=== PATIENT | male | born 1955 | race Caucasian/White ===

== ENCOUNTER 2018-09-24 08:47 | Inpatient (IN) | payer OTHER, MEDICAID, SELFPAY ==
[2018-09-24] VITALS (13 sets, daily range): BP systolic 128–165; BP diastolic 84–111; PULSE 69–88; RESP 11–94; TEMP 36.3–36.6; O2SAT 13–100; BMI 27.6
--- NOTE | 2018-09-24 | DI.ECHO.S_ITS ---
[facility]---------+ [facility] +---------+ : : [address] : [address] : : : : [id number] : : : : Phone: [phone]+ Echocardiogram Report + + :Name: ANUPAM SIMS Study Date: 09/26/2018 Height: 74 in : :[facility] Weight: 215 lb : : Gender: Male BSA: 2.2 m2 : :: 1955 Age: 62 yrs BP: 145/99 mmHg: :Reason For Study: STROKE : : Performed By: Naty Medrano : :Referring: NATALIA KAHN : + + Interpretation Summary 1) Normal left ventricular thickness and size with borderline reduced systolic function (EF about 50%). 2) Normal right ventricular size and function. 3) No significant valvular abnormalities. 4) Bubble study doesn't reveal a inter-atrial shunt but quailty of images is poor. 5) No prior Echo available for comparison. Procedure: A two-dimensional transthoracic echocardiogram with color flow and Doppler was performed. The study quality was technically adequate. There is no prior echocardiogram noted for this patient. A saline contrast injection was performed to assess for cardiac shunting. The heart rate ranged between 60-80 bpm during the study. Left Ventricle: The left ventricle is normal in size. There is normal left ventricular wall thickness. Left ventricular ejection fraction is estimated to be 50 +/- 5%. Right Ventricle: The right ventricle is normal in size and function. Atria: Both atria are normal in size. There is no Doppler evidence for an interatrial shunt. Bubble study doesn't reveal a inter-atrial shunt but quailty of images is poor. Mitral Valve: The mitral valve leaflets appear mildly thickened, but open well. There is trace mitral regurgitation. Aortic Valve: The aortic valve is grossly normal. The aortic valve opens well. No aortic regurgitation is present. Tricuspid Valve: The tricuspid valve is normal in structure and function. There is a trace or physiologic amount of tricuspid regurgitation. Pulmonic Valve: The pulmonic valve is not well visualized. Great Vessels: The aortic root is normal size. The ascending aorta is at the upper limits of normal in size. The aortic arch is normal in size. The pulmonary is not well visualized. The IVC was not well visualized secondary to technical limitations making central venous pressures difficult to estimate. Pericardium/ Pleura There is no pericardial effusion. There is no pleural effusion. MMode/2D Measurements & Calculations LVIDd: 5.0 cm LVOT diam: 2.4 cm LVIDs: 4.5 cm Ao root diam: 3.8 cm FS: 9.7 % asc Aorta Diam: 3.6 cm EPSS: 1.2 cm Ao Arch Diam (distal): 2.8 cm IVSd: 0.84 cm LVPWd: 0.94 cm LV pierre. diameter/BSA (cm/m^2): 2.2 LV sys. diameter/BSA (cm/m^2): 2.0 LA A2 area: 15.0 cm2 RA long axis: 5.3 cm LA A4 area: 15.8 cm2 RA area: 15.3 cm2 LA length (vol): 4.6 cm RA vol: 37.5 ml LA vol: 43.6 ml RA : 16.7 ml/m2 LA vol index: 19.5 ml/m2 RVD1 (basal): 3.3 cm TAPSE: 2.3 cm Doppler Measurements & Calculations Ao V2 max: 103.4 cm/sec LVOT Max Lawrence: 64.2 cm/sec Ao V2 mean: 77.0 cm/sec LV V1 max P.6 mmHg Ao max P.3 mmHg LV V1 VTI: 13.4 cm Ao mean P.6 mmHg ANDRE(I,D): 3.7 cm2 Ao V2 VTI: 17.1 cm ANDRE(V,D): 2.9 cm2 sev ratio: 0.79 ANDRE indexed to BSA (cm^2/m^2): 1.7 MV E max lawrence: 37.3 cm/sec TR max lawrence: 227.5 cm/sec MV A max lawrence: 66.2 cm/sec TR max P.7 mmHg MV E/A: 0.56 MV dec time: 0.58 sec SV(LVOT): 63.4 ml Reading Physician:12:49 PM
--- NOTE | 2018-09-24 | DI.MRI.S_ITS ---
PROCEDURE: MR STROKE Pre- and post-contrast brain MRI, non-contrast brain MR angiogram, pre- and postcontrast neck MR angiogram INDICATIONS: Leftsided facial droop and weakness TECHNIQUE: Brain: Noncontrast axial T1 spin echo, axial T2 fast spin echo, sagittal and axial FLAIR, coronal T2 fast spin echo, axial gradient echo, axial diffusion and ADC through the brain. After the administration of contrast, axial 3D VIBE of the cranial vasculature and brain. Brain MRA: Non-contrast 3-D time of flight MR angiogram, with multiple zjurkug-wenxabtll-nlgbsyfidh (MIP) reformats performed. Neck MRA: Axial and sagittal TruFISP through the neck. Coronal dynamic MR angiogram during administration of contrast in the arterial and venous phases, with 3-dimenstional uirqgwx-vdlqdeaqf-royqzmahvx (MIP) reformats constructed from subtraction images. COMPARISON: [facility], CT, CT ANGIO HEAD AND NECK, 09/24/2018, 8:52. [facility], CT, CT HEAD/BRAIN WO CON, 09/24/2018, 8:48. FINDINGS: Image quality: Excellent. BRAIN: CSF spaces: Ventricles are normal in size and shape. Basal cisterns are patent. No extra-axial fluid collections. Brain: Restricted diffusion in the right luis miguel measuring 1.1 cm is consistent with an acute right pontine infarct. There is no evidence of acute hemorrhage. There is mild cytotoxic edema. There is no significant mass effect. Brain parenchyma is otherwise unremarkable. No abnormal enhancement with gadolinium. No hemosiderin deposition. No significant T2 abnormalities in the other areas. A Normal intravascular flow voids are present. No abnormal intracranial enhancement. Skull and face: Calvarial marrow signal is normal. Orbits appear normal. Sinuses: Sinuses and mastoids are clear. BRAIN MR ANGIOGRAM: No aneurysms or occlusions or stenoses. Left vertebral artery is dominant. Right vertebral artery is diminutive. NECK MR ANGIOGRAM: Carotids: Great vessels demonstrate a conventional anatomy as they arise from the aortic arch. The origins of the common carotid arteries appear patent. The calibers and courses of both common carotid arteries are normal. The bifurcation regions appear normal bilaterally. The internal carotid arteries demonstrate normal course and caliber. Posterior circulation: The origins of the vertebral arteries appear patent. More superior portions of both vertebral arteries demonstrate normal course and caliber, and join to form a normal appearing basilar artery. Left vertebral artery is dominant. Right vertebral artery is diminutive. Miscellaneous: Subclavian arteries appear patent. Pre-contrast images through the neck show no soft tissue abnormalities. IMPRESSION: BRAIN MRI: Acute right pontine infarct. BRAIN MR ANGIOGRAM: Unremarkable MRA head NECK MR ANGIOGRAM: Unremarkable MRA neck with and without contrast. Incidental note made of diffusely diminutive right vertebral artery. Dictated by: Charles Schmid M.D. on 09/24/2018 at 18:04 Approved by: Charles Schmid M.D. on 09/24/2018 at 18:16
--- NOTE | 2018-09-24 08:55 | DI.CT.S_ITS ---
PROCEDURE: CT HEAD/BRAIN WO CON INDICATIONS: cva left facial droop TECHNIQUE: Noncontrast 4.5 mm thick angled axial sections acquired from the foramen magnum to the vertex, with coronal and sagittal reformats. For radiation dose reduction, the following was used: automated exposure control, adjustment of mA and/or kV according to patient size. COMPARISON: None. FINDINGS: Image quality: Excellent. CSF spaces: Basal cisterns are patent. No extra-axial fluid collections. Ventricles are normal in size and shape. Brain: No midline shift. No intracranial masses or hemorrhage. Anthony-white matter interface is normal. Skull and face: There is a displaced nasal bone fracture, the acuity of which is unknown. Calvarium and visualized facial bones are otherwise intact, without suspicious lesions. Sinuses: Visualized sinuses and mastoids are clear. IMPRESSION: 1. No acute intracranial findings. If there is high clinical suspicion for acute or subacute CVA, noncontrast MRI of the brain would be helpful to further characterize findings. 2. Displaced nasal bone fracture which may be chronic or subacute in nature. Please correlate clinically. No overlying soft tissue swelling. Dictated by: Ivy Bishop M.D. on 09/24/2018 at 9:07 Approved by: Ivy Bishop M.D. on 09/24/2018 at 9:10
--- NOTE | 2018-09-24 09:05 | ED_ITS ---
HPI - Neuro Symptoms/Deficit General Chief Complaint: Neuro Symptoms/Deficit Stated Complaint: mild stroke Time Seen by Provider: 09/24/18 08:55 Source: patient and family Mode of arrival: wheelchair Limitations: no limitations History of Present Illness HPI Narrative: patient is a 62-year-old male who presents with left-sided deficits and vomiting. states she thought he had the flu yesterday she thinks maybe he had some left-sided deficits yesterday but was not sure if they were real. This morning he threw up another time and is she noticed his left face was definitely weaker and he was having difficulty walking. At that time she brought him to the emergency department definite sign Timing confirmed by: spouse Location: left face History of same: No Severity: mild Quality: weak Relieving factors: none Related Data Home Medications Medication Instructions Recorded Confirmed multivitamin [Multiple Vitamins] 1 tab PO DAILY #0 03/02/17 09/24/18 aspirin 81 mg PO PRN PRN 09/24/18 09/24/18 ibuprofen 200 mg PO QID PRN 09/24/18 09/24/18 Allergies Allergy/AdvReac Type Severity Reaction Status Date / Time No Known Drug Allergies Allergy Verified 09/24/18 09:19 Review of Systems Review of Systems ROS Unobtainable: All systems reviewed & are unremarkable except as noted in HPI and below Constitutional Denies chills, Denies fever(s), Denies lethargy and Denies weakness Eyes Denies change in vision, Denies eye discharge, Denies irritation and Denies loss of vision ENT Ears, Nose, Mouth, and Throat: Denies change in voice, Denies neck pain and Denies sore throat Cardiovascular Denies chest pain, Denies irregular heart rhythm, Denies lightheadedness, Denies palpitations, Denies dyspnea, Denies dyspnea on exertion and Denies orthopnea Respiratory Denies cough, Denies dyspnea, Denies dyspnea on exertion and Denies wheezing Gastrointestinal Gastrointestinal: Denies abdominal pain, Denies change in bowel habits, Denies diarrhea, Denies nausea and Reports vomiting Genitourinary Denies hematuria, Denies flank pain, Denies urinary incontinence and Denies urinary urgency Musculoskeletal Denies neck pain Integumentary/Breasts Denies pruritus, Denies erythema, Denies rash and Denies wounds Neurologic Denies loss of vision and Denies weakness Endocrine Denies palpitations Allergic/Immunologic Denies wheezing PFSH Medical History HTN (hypertension) (Acute) Hyperlipidemia (Acute) CHRISTINE (obstructive sleep apnea) (Acute) Surgical History H/O cataract removal with insertion of prosthetic lens (Acute) H/O right inguinal hernia repair (Acute) Family History Mother No problems noted. Father No problems noted. Brother Diabetes mellitus Social History Smoking Status: Never smoker Family History Mother No problems noted. Father No problems noted. Brother Diabetes mellitus Social History Smoking Status: Never smoker Exam Initial Vital Signs Initial Vital Signs: Vital Signs Pulse Rate 88 09/24/18 09:00 Respiratory Rate 17 09/24/18 09:00 Blood Pressure 162/111 H 09/24/18 09:00 Pulse Oximetry 99 09/24/18 09:00 GENERAL: alert male with left facial drooping answering questions appropriately HEENT: Head atraumatic,EOMI, pupils reactive, left facial droop CARDIOVASCULAR: Regular rate and rhythm without murmurs, rubs or gallops. RESPIRATORY: Breath sounds equal bilaterally, no wheezes rales or rhonchi. ABDOMEN: Soft, nontender. Normoactive bowel sounds all 4 quadrants. No guarding or rebound. EXTREMITIES: Normal range of motion, no clubbing or edema. Neurovascularly intact NEUROLOGICAL: Alert and oriented x4. Clear speech no AFib a JALEESA or dysarthria. Cranial nerves II through XII grossly intact. 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 He left facial droop SKIN: Warm, dry, no laceration, no petechiae, no rashes or lesions. Scores NIH Stroke Scale Level of Conciousness: Alert, keenly responsive Ask month/age: Answers both questions correctly. Open/close eyes, close hand: Performs both tasks correctly Best gaze horizontal: Normal Visual galo: No visual loss Facial palsy: Partial paralysis, total or near total paralysis of lower face Left arm drift: Drifts down, not to bed Right arm drift: No drift for full 10 sec Left leg drift: No drift for full 10 sec Right leg drift: No drift for full 10 sec Limb ataxia: Present in one limb Sensory on face/arms/legs: Normal, no sensory loss Best language: No aphasia, normal Dysarthria: Normal Extinction or inattention: No abnormality Total NIH Stroke scale score: 4 Course Orders Ordered: ED Orders 09/24/18 12:14 Education, smoking cessation ONGOING 09/24/18 12:16 Consult to Occupational Therapy Evaluate & Treat Consult to Physical Therapy Evaluate & Treat 09/24/18 12:18 Consult to Speech Therapy Evaluate & Treat 09/24/18 12:47 Consult to Speech Therapy Evaluate & Treat 09/24/18 14:07 Lipid Panel Routine Acetaminophen (Tylenol) 650 mg PO Q6HR PRN PRN Reason: As Needed for Fever/Mild Pain Atorvastatin Calcium (Lipitor) 40 mg PO BEDTIME NADIA Docusate Sodium (Colace) 100 mg PO BID PRN PRN Reason: Constipation Heparin Sodium (Porcine) (Heparin) 5,000 unit SUBCUT BID NADIA Sodium Chloride (Normal Saline 0.9%) 1,000 mls @ 100 mls/hr IV CONT NADIA Last Admin: 09/24/18 13:43 Dose: 100 mls/hr Magnesium Hydroxide (Milk Of Magnesia) 30 ml PO DAILY PRN PRN Reason: Constipation Ondansetron HCl (Zofran) 4 mg IV Q8HR PRN PRN Reason: Nausea And Vomiting Sennosides (Senna) 17.2 mg PO BEDTIME PRN PRN Reason: Constipation Discontinued Medications Aspirin (Aspirin Chew) 324 mg PO NOW ONE Stop: 09/24/18 09:47 Last Admin: 09/24/18 09:49 Dose: 324 mg Sodium Chloride (Normal Saline 0.9%) 1,000 mls @ 150 mls/hr IV CONT NADIA Last Infusion: 09/24/18 13:28 Dose: 100 mls/hr Infusion: 09/24/18 12:28 Dose: 150 mls/hr Admin: 09/24/18 09:27 Dose: 150 mls/hr Vital Signs - 8 hr 09/24/18 11:30 09/24/18 12:00 09/24/18 12:30 Temperature 97.8 F Pulse Rate 69 75 74 Respiratory Rate 12 11 L 18 Blood Pressure 165/96 H Blood Pressure [Left Arm] 138/84 138/99 H Pulse Oximetry 93 97 97 09/24/18 15:28 09/24/18 16:53 Temperature 97.5 F L Pulse Rate 78 Respiratory Rate 18 Blood Pressure 152/90 H Blood Pressure [Left Arm] Pulse Oximetry 99 96 MDM - Neuro Symptoms/Deficit Lab Data Attestation: I reviewed the patient's lab results. Result diagrams: 09/24/18 09:00 09/24/18 09:00 Lab Results 09/24/18 09/24/18 09/24/18 Range/Units 09:00 09:00 09:00 WBC 6.7 (4.5-11.0) X10^3/uL RBC 5.01 (4.5-5.9) X10^6/uL Hgb 16.0 (13.5-17.5) g/dL Hct 45.9 (41-53) % MCV 91.7 (80-100) fL MCH 31.9 (26-34) PG MCHC 34.8 (30-36) % RDW 12.7 (11.6-14.8) % Plt Count 234 (150-400) X10^3/uL Neut % (Auto) 67.3 (50-75) % Lymph % (Auto) 23.1 L (25-40) % [place] % (Auto) 8.6 (3-14) % Eos % (Auto) 0.3 L (2-4) % Baso % (Auto) 0.7 (0-2) % Neut # (Auto) 4500 (0803-5860) /uL Lymph # (Auto) 1500 (9457-5921) /uL [place] # (Auto) 600 (0-900) /uL Eos # (Auto) 0 (0-450) /uL Baso # (Auto) 0 (0-100) /uL PT 12.3 (10.1-12.7) SECONDS INR 1.1 (0.9-1.3) APTT 28 (26.4-36.2) SECONDS Sodium 136 L (137-145) mmol/L Potassium 3.4 (3.4-5.1) mmol/L Chloride 102 (98-107) mmol/L Carbon Dioxide 24 (22-32) mmol/L BUN 14 (9-20) mg/dL Creatinine 0.70 (0.66-1.25) mg/dL Estimated GFR > 60.0 (>60) mL/min BUN/Creatinine Ratio 20.0 (6-22) Glucose 115 H (80-110) mg/dL Hemoglobin A1c (4.0-6.0) % Calcium 9.6 (8.4-10.2) mg/dL Total Bilirubin 0.9 (0.2-1.3) mg/dL AST 35 (17-59) IU/L ALT 53 (21-72) IU/L Alkaline Phosphatase 35 L (38-126) U/L Total Creatine Kinase 65 (55-170) U/L CK-MB (CK-2) TNP CK-MB (CK-2) Rel Index TNP Troponin I < 0.012 (0.01-0.034) ng/mL Total Protein 7.4 (6.3-8.2) g/dL Albumin 4.6 (3.5-5.0) g/dL Globulin 2.8 (1.7-4.1) g/dL Albumin/Globulin Ratio 1.6 (1.0-2.8) Triglycerides (35-150) mg/dL Cholesterol (140-199) mg/dL LDL Cholesterol, Calc (<100) mg/dL HDL Cholesterol (40-60) mg/dL Urine Opiates Screen (Negative) Ur Oxycodone Screen (Negative) Urine Methadone Screen (Negative) Ur Barbiturates Screen (Negative) U Tricyclic Antidepress (Negative) Ur Phencyclidine Scrn (Negative) Ur Amphetamines Screen (Negative) U Methamphetamines Scrn (Negative) Ur MDMA Scrn (Ecstasy) (Negative) U Benzodiazepines Scrn (Negative) Urine Cocaine Screen (Negative) U Marijuana (THC) Screen (Negative) 09/24/18 09/24/18 09/24/18 Range/Units 09:00 14:07 Unknown WBC (4.5-11.0) X10^3/uL RBC (4.5-5.9) X10^6/uL Hgb (13.5-17.5) g/dL Hct (41-53) % MCV (80-100) fL MCH (26-34) PG MCHC (30-36) % RDW (11.6-14.8) % Plt Count (150-400) X10^3/uL Neut % (Auto) (50-75) % Lymph % (Auto) (25-40) % [place] % (Auto) (3-14) % Eos % (Auto) (2-4) % Baso % (Auto) (0-2) % Neut # (Auto) (0193-8529) /uL Lymph # (Auto) (3722-9078) /uL [place] # (Auto) (0-900) /uL Eos # (Auto) (0-450) /uL Baso # (Auto) (0-100) /uL PT (10.1-12.7) SECONDS INR (0.9-1.3) APTT (26.4-36.2) SECONDS Sodium (137-145) mmol/L Potassium (3.4-5.1) mmol/L Chloride (98-107) mmol/L Carbon Dioxide (22-32) mmol/L BUN (9-20) mg/dL Creatinine (0.66-1.25) mg/dL Estimated GFR (>60) mL/min BUN/Creatinine Ratio (6-22) Glucose (80-110) mg/dL Hemoglobin A1c 5.2 (4.0-6.0) % Calcium (8.4-10.2) mg/dL Total Bilirubin (0.2-1.3) mg/dL AST (17-59) IU/L ALT (21-72) IU/L Alkaline Phosphatase (38-126) U/L Total Creatine Kinase (55-170) U/L CK-MB (CK-2) CK-MB (CK-2) Rel Index Troponin I (0.01-0.034) ng/mL Total Protein (6.3-8.2) g/dL Albumin (3.5-5.0) g/dL Globulin (1.7-4.1) g/dL Albumin/Globulin Ratio (1.0-2.8) Triglycerides 120 (35-150) mg/dL Cholesterol 192 (140-199) mg/dL LDL Cholesterol, Calc 127 H (<100) mg/dL HDL Cholesterol 41 (40-60) mg/dL Urine Opiates Screen Negative (Negative) Ur Oxycodone Screen Negative (Negative) Urine Methadone Screen Negative (Negative) Ur Barbiturates Screen Negative (Negative) U Tricyclic Antidepress Negative (Negative) Ur Phencyclidine Scrn Negative (Negative) Ur Amphetamines Screen Negative (Negative) U Methamphetamines Scrn Negative (Negative) Ur MDMA Scrn (Ecstasy) Negative (Negative) U Benzodiazepines Scrn Negative (Negative) Urine Cocaine Screen Negative (Negative) U Marijuana (THC) Screen Negative (Negative) Point of Care Testing Glucose POC 94 Urine Dip Bedside Urine Glucose Negative Bedside Urine Bilirubin - Negative Bedside Urine Ketone - Negative Urine Specific [place] 1.010 Bedside Urine Occult Blood - Negative Bedside Urine pH 8.0 Bedside Urine Protein - Negative Bedside Urine Urobilinogen - Negative Bedside Urine Nitrite - Negative Bedside Urine Leukocytes - Negative Esterase Imaging Data CT scan - head: Radiologist's impression: PROCEDURE: CT HEAD/BRAIN WO CON INDICATIONS: cva left facial droop TECHNIQUE: Noncontrast 4.5 mm thick angled axial sections acquired from the foramen magnum to the vertex, with coronal and sagittal reformats. For radiation dose reduction, the following was used: automated exposure control, adjustment of mA and/or kV according to patient size. COMPARISON: None. FINDINGS: Image quality: Excellent. CSF spaces: Basal cisterns are patent. No extra-axial fluid collections. Ventricles are normal in size and shape. Brain: No midline shift. No intracranial masses or hemorrhage. Anthony-white matter interface is normal. Skull and face: There is a displaced nasal bone fracture, the acuity of which is unknown. Calvarium and visualized facial bones are otherwise intact, without suspicious lesions. Sinuses: Visualized sinuses and mastoids are clear. IMPRESSION: 1. No acute intracranial findings. If there is high clinical suspicion for acute or subacute CVA, noncontrast MRI of the brain would be helpful to further characterize findings. 2. Displaced nasal bone fracture which may be chronic or subacute in nature. Please correlate clinically. No overlying soft tissue swelling. Dictated by: Ivy Bishop M.D. on 09/24/2018 at 9:07 CTA head and neck: Radiologist's impression: PROCEDURE: CT HEAD/BRAIN WO CON INDICATIONS: cva left facial droop TECHNIQUE: Noncontrast 4.5 mm thick angled axial sections acquired from the foramen magnum to the vertex, with coronal and sagittal reformats. For radiation dose reduction, the following was used: automated exposure control, adjustment of mA and/or kV according to patient size. COMPARISON: None. FINDINGS: Image quality: Excellent. CSF spaces: Basal cisterns are patent. No extra-axial fluid collections. Ventricles are normal in size and shape. Brain: No midline shift. No intracranial masses or hemorrhage. Anthony-white matter interface is normal. Skull and face: There is a displaced nasal bone fracture, the acuity of which is unknown. Calvarium and visualized facial bones are otherwise intact, without suspicious lesions. Sinuses: Visualized sinuses and mastoids are clear. IMPRESSION: 1. No acute intracranial findings. If there is high clinical suspicion for acute or subacute CVA, noncontrast MRI of the brain would be helpful to further characterize findings. 2. Displaced nasal bone fracture which may be chronic or subacute in nature. Please correlate clinically. No overlying soft tissue swelling. Dictated by: Ivy Bishop M.D. on 09/24/2018 at 9:07 ECG Data Attestation: I personally reviewed and interpreted this ECG as follows: Prior ECG tracings: not available for review Interpretation: normal sinus rhythm at rate [address] changes no T-wave inversions no priors to compare MDM Narrative Medical decision making narrative: the patient not candidate for tPA symptoms likely started last night but unclear of start time. No large vessel occlusion noted on CT angio. patient continuing to have left sided deficits. Moving placed into observation. Dr. daly happily accepts. Discharge Plan Departure Patient Disposition: Admitted as Observation Clinical Impression: Cerebrovascular accident Qualifiers: CVA mechanism: unspecified Qualified Code(s): I63.9 - Cerebral infarction, unspecified Discharge Date/Time: 09/24/18 12:29 Interventions: ED Discharge Assessment Last Done: 09/24/18 11:52 Admit Date/Time: 09/24/18 11:08 Admit Provider: Yenifer Daly
[2018-09-24 09:12] LABS: Add Manual Diff / Slide Review NO; Basophils Absolute Auto 0 /uL (0-100); Basophils Percent Auto 0.7 % (0-2); Eosinophils Absolute Auto 0 /uL (0-450); Eosinophils Percent Auto 0.3 % (2-4); Hematocrit 45.9 % (41-53); Lymphocytes Absolute Auto 1500 /uL (1100-4500); Lymphocytes Percent Auto 23.1 % (25-40); Mean Corpuscular HGB Conc 34.8 % (30-36); Mean Corpuscular Hemoglobin 31.9 PG (26-34); Mean Corpuscular Volume 91.7 fL (80-100); Monocytes Absolute Auto 600 /uL (0-900); Monocytes Percent Auto 8.6 % (3-14); Neutrophils Absolute Auto 4500 /uL (1500-7000); Neutrophils Percent Auto 67.3 % (50-75); Platelet Count 234 X10^3/uL (150-400); Red Blood Cell Count 5.01 X10^6/uL (4.5-5.9); Red Cell Distribution Width 12.7 % (11.6-14.8); White Blood Cell Count 6.7 X10^3/uL (4.5-11.0)
[2018-09-24 09:15] LABS: INR 1.1 (0.9-1.3); Prothrombin Time 12.3 SECONDS (10.1-12.7)
--- NOTE | 2018-09-24 09:17 | DI.CT.S_ITS ---
PROCEDURE: CT ANGIO HEAD AND NECK INDICATIONS: left falcial droop TECHNIQUE: Pre-contrast 4.5 mm thick sections acquired from the foramen magnum to the vertex. After the administration of intravenous contrast, 1 mm thick sections acquired from the aortic arch through the [place] of [place]. Post-contrast 4.5 mm thick sections then re-acquired from the foramen magnum to the vertex. 3-dimensional uelykxe-slzgqqmda-pwudpszjnr (MIP) and/or volume rendering reformats were acquired of the central intracranial vasculature and neck separately. COMPARISON: [facility], CT, CT HEAD/BRAIN WO CON, 09/24/2018, 8:48. FINDINGS: Image quality: Excellent. BRAIN: CSF spaces: Ventricles are normal in size and shape. Basal cisterns are patent. No extra-axial fluid collections. Brain: No midline shift. No intracranial bleeds or masses. Anthony-white matter interface appears intact. Skull and face: Calvarium appears intact, without suspicious lesions. Chronic nasal bone fracture stable. Orbits appear normal. Sinuses: Sinuses and mastoids are clear. HEAD CT ANGIOGRAPHY: Anterior circulation: Intracranial internal carotid arteries are normal in flow. Atherosclerotic calcification noted in the cavernous segment of the left internal carotid artery which causes mild short segment stenosis. The flow within the paired anterior cerebral arteries is normal and symmetric. The flow within the middle cerebral arteries is normal and symmetric. The anterior communicating artery is seen. No aneurysms are seen. Posterior circulation: Visualized portions of the vertebral arteries demonstrate normal caliber, and join to form a normal appearing basilar artery. Flow within the posterior cerebral arteries is normal and symmetric. No aneurysms are seen. Dural sinuses demonstrate normal postcontrast enhancement. NECK CT ANGIOGRAPHY: Carotid system: The great vessels demonstrate a conventional anatomy as they arise from the aortic arch. The origins of the common carotid arteries appear patent. The common carotid arteries demonstrate normal caliber and courses. The bifurcation regions are both widely patent. The internal carotid arteries demonstrate normal calibers and courses. Posterior circulation: The origins of the vertebral arteries both appear widely patent. The more superior extracranial portions of both vertebral arteries also demonstrate normal courses and calibers. They join to form a normal appearing basilar artery. Soft tissues: Visualized neck soft tissues demonstrate no suspicious abnormalities. 8mm lipoma noted in the right parotid gland. Bones: No suspicious bony lesions. Spine degenerative disc disease and facet arthropathy.Visualized cervical spine appears normally aligned. IMPRESSION: 1. No acute intracranial disease process. If there is continued clinical concern for acute/subacute cerebrovascular accident, then MRI of the brain should be considered for further evaluation. 2. No large vessel occlusion, hemodynamically significant stenosis, dissection or aneurysm. Any quantitative measurements of stenosis were performed using NASCET criteria. Dictated by: Katie Davis MD, PhD on 09/24/2018 at 9:28 Approved by: Katie Davis MD, PhD on 09/24/2018 at 9:37
[2018-09-24 09:18] LABS: PTT Partial Thromboplastin Tim 28 SECONDS (26.4-36.2)
[2018-09-24 09:19] LABS: Alanine Aminotransferase 53 IU/L (21-72); Albumin 4.6 g/dL (3.5-5.0); Albumin Globulin Ratio 1.6 (1.0-2.8); Alkaline Phosphatase 35 U/L (38-126); Aspartate Aminotransferase 35 IU/L (17-59); Bilirubin Total 0.9 mg/dL (0.2-1.3); Blood Urea Nitrogen 14 mg/dL (9-20); Calcium 9.6 mg/dL (8.4-10.2); Carbon Dioxide 24 mmol/L (22-32); Chloride 102 mmol/L (98-107); Creatine Kinase 65 U/L (55-170); Estimated Glomerular Filt Rate > 60.0 mL/min (>60); Globulin 2.8 g/dL (1.7-4.1); Glucose 115 mg/dL (80-110); HEMOLYSIS < 15 (0-50); Potassium 3.4 mmol/L (3.4-5.1); Sodium 136 mmol/L (137-145); Total Protein 7.4 g/dL (6.3-8.2)
[2018-09-24] MEDS: SODIUM CHLORIDE 0.9% 1,000 ML 150 ML IV (09:27)
[2018-09-24 09:31] LABS: Troponin I < 0.012 ng/mL (0.01-0.034)
[2018-09-24] MEDS: ASPIRIN 81 MG TAB 324 MG PO (09:49)
[2018-09-24 11:21] LABS: Urine Amphetamines Negative (Negative); Urine Barbiturates Negative (Negative); Urine Benzodiazepines Negative (Negative); Urine Cocaine Negative (Negative); Urine MDMA Negative (Negative); Urine Methadone Negative (Negative); Urine Methamphetamines Negative (Negative); Urine Morphine/Opi cutoff 2000 Negative (Negative); Urine Oxycodone Negative (Negative); Urine Phencyclidine Negative (Negative); Urine Tetrahydrocannabinol Negative (Negative); Urine Tricyclic Antidepressant Negative (Negative)
--- NOTE | 2018-09-24 12:24 | PC.NURSE ---
Day shift: Arrived on unit at approx 1215 from ED. Pt is able to stand and ambulate. Will be HFR for now. Karuna BROUSSARD is admitting the Pt as this is written.
--- NOTE | 2018-09-24 13:34 | PM.HP.1 ---
History of Present Illness Date Patient Seen: 09/24/18 Chief complaint: mild stroke Narrative: Brandon Ivey is a 62-year-old male with a past medical history significant for hypertension and probable obstructive sleep apnea not on CPAP who presented with left-sided weakness and facial droop. His significant other reports that she thought he had the flu yesterday as he experience nausea and vomiting after a meal yesterday. This morning he threw up another time and is she noticed his left face was definitely weaker and he was having difficulty walking. 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 He exhibits expressive aphasia and reports that it is hard to get the words out that he wants to say. He also has had pain in his right eye that has resolved, as well as, blurriness which has not. He current denies headache, chest pain, shortness of breath, abdominal pain, nausea, vomiting, fever, chills, dysuria, diarrhea or constipation. He has no other complaints at this time. Patient History Medical History HTN (hypertension) (Acute) Hyperlipidemia (Acute) CHRISTINE (obstructive sleep apnea) (Acute) Surgical History H/O cataract removal with insertion of prosthetic lens (Acute) H/O right inguinal hernia repair (Acute) Social History Smoking Status: Never smoker Family & Social History Family History Mother No problems noted. Father No problems noted. Brother Diabetes mellitus Social History: Prior Living Arrangements House Safety & Behavioral: Feels Safe in Current Yes Environment Been Physically Hurt or No Threatened By a Person Suicidal Ideation Description None Suicide Plan Description No Plan Tobacco & Substance use: Smoking Status Never smoker alcohol intake frequency a few times a week Substance Use Type does not use Patient has significant other x 1.5 years. He has never been a smoker. He does not use recreational drugs. He drinks 1-2 drinks, either beer or mixed vodka tonic, on Monday and Saturdays only. Meds Home Medications Medication Instructions Recorded Confirmed Type multivitamin [Multiple Vitamins] 1 tab PO DAILY #0 03/02/17 09/24/18 History aspirin 81 mg PO PRN PRN 09/24/18 09/24/18 History ibuprofen 200 mg PO QID PRN 09/24/18 09/24/18 History Allergies Allergy/AdvReac Type Severity Reaction Status Date / Time No Known Drug Allergies Allergy Verified 09/24/18 09:19 Review of Systems Review of Systems A 10 system comprehensive review of systems was conducted with the patient and found to be negative except as above in the History of Present Illness. Exam Vital Signs (past 8 hours): - 09/24/18 09:00 09/24/18 09:13 09/24/18 09:15 Temperature 97.4 F L Pulse Rate 88 86 84 Respiratory Rate 17 17 17 Blood Pressure 162/111 H Blood Pressure [Left Arm] 162/111 H 152/98 H Pulse Oximetry 99 98 100 09/24/18 09:45 09/24/18 10:00 09/24/18 10:15 Temperature Pulse Rate 77 73 72 Respiratory Rate 11 L 11 L 14 Blood Pressure Blood Pressure [Left Arm] 154/94 H 153/92 H 151/94 H Pulse Oximetry 96 95 94 09/24/18 10:55 09/24/18 11:00 09/24/18 11:30 Temperature Pulse Rate 73 77 69 Respiratory Rate 18 94 H 12 Blood Pressure Blood Pressure [Left Arm] 128/87 147/98 H 138/84 Pulse Oximetry 98 13 L 93 09/24/18 12:00 09/24/18 12:30 Temperature 97.8 F Pulse Rate 75 74 Respiratory Rate 11 L 18 Blood Pressure 165/96 H Blood Pressure [Left Arm] 138/99 H Pulse Oximetry 97 97 Oxygen Delivery Method Room Air Oxygen Flow Rate 0 Narrative Exam Narrative: General: Older male sitting in bed and in no acute distress, appears older than stated age, well-developed, well-nourished, appropriately interactive. HEENT: Normocephalic, atraumatic. External ears without defect. Pupils equal, round, and reactive to light. Anicteric sclerae, moist conjunctivae, and no lid lag. Oropharynx free of erythema and cobble stoning with moist mucosa. Neck: Supple with full range of motion. No jugular venous distension. No bruits. No lymphadenopathy or thyromegaly. Cardiovascular: Regular rate and rhythm without murmurs, rubs, or gallops appreciated Pulmonary: Clear to auscultation bilaterally without crackles, wheezes, or rhonchi. Normal respiratory effort with no use of accessory muscles. Abdomen: Soft, bowel sounds present, nontender, nondistended. No hepatosplenomegaly or masses appreciated. Extremities: No clubbing, cyanosis, or edema. Skin: Normal temperature, turgor, and texture; no rash, ulcers, or subcutaneous nodules appreciated. Neurological: Left-sided facial droop, left investigations director weakness 2/5, left arm drift, expressive aphasia and slight slurring of speech. Right upper and lower extremity normal muscle strength 5/5. [id number]-[id number] intact bilaterally. Psychiatric: Normal mood and affect. Alert and oriented to person, place, and time. Objective Labs Result Diagrams: 09/24/18 09:00 09/24/18 09:00 Labs: Laboratory Results - last 24 hr 09/24/18 09/24/18 09/24/18 09:00 09:00 09:00 WBC 6.7 RBC 5.01 Hgb 16.0 Hct 45.9 MCV 91.7 MCH 31.9 MCHC 34.8 RDW 12.7 Plt Count 234 Neut % (Auto) 67.3 Lymph % (Auto) 23.1 L Sutter % (Auto) 8.6 Eos % (Auto) 0.3 L Baso % (Auto) 0.7 Neut # (Auto) 4500 Lymph # (Auto) 1500 Sutter # (Auto) 600 Eos # (Auto) 0 Baso # (Auto) 0 PT 12.3 INR 1.1 APTT 28 Sodium 136 L Potassium 3.4 Chloride 102 Carbon Dioxide 24 BUN 14 Creatinine 0.70 Estimated GFR > 60.0 BUN/Creatinine Ratio 20.0 Glucose 115 H Calcium 9.6 Total Bilirubin 0.9 AST 35 ALT 53 Alkaline Phosphatase 35 L Total Creatine Kinase 65 CK-MB (CK-2) TNP CK-MB (CK-2) Rel Index TNP Troponin I < 0.012 Total Protein 7.4 Albumin 4.6 Globulin 2.8 Albumin/Globulin Ratio 1.6 Urine Opiates Screen Ur Oxycodone Screen Urine Methadone Screen Ur Barbiturates Screen U Tricyclic Antidepress Ur Phencyclidine Scrn Ur Amphetamines Screen U Methamphetamines Scrn Ur MDMA Scrn (Ecstasy) U Benzodiazepines Scrn Urine Cocaine Screen U Marijuana (THC) Screen 09/24/18 Unknown WBC RBC Hgb Hct MCV MCH MCHC RDW Plt Count Neut % (Auto) Lymph % (Auto) Sutter % (Auto) Eos % (Auto) Baso % (Auto) Neut # (Auto) Lymph # (Auto) Sutter # (Auto) Eos # (Auto) Baso # (Auto) PT INR APTT Sodium Potassium Chloride Carbon Dioxide BUN Creatinine Estimated GFR BUN/Creatinine Ratio Glucose Calcium Total Bilirubin AST ALT Alkaline Phosphatase Total Creatine Kinase CK-MB (CK-2) CK-MB (CK-2) Rel Index Troponin I Total Protein Albumin Globulin Albumin/Globulin Ratio Urine Opiates Screen Negative Ur Oxycodone Screen Negative Urine Methadone Screen Negative Ur Barbiturates Screen Negative U Tricyclic Antidepress Negative Ur Phencyclidine Scrn Negative Ur Amphetamines Screen Negative U Methamphetamines Scrn Negative Ur MDMA Scrn (Ecstasy) Negative U Benzodiazepines Scrn Negative Urine Cocaine Screen Negative U Marijuana (THC) Screen Negative Assessment & Plan Assessment & Plan narrative: Barndon Ivey is a 62-year-old male with a past medical history significant for hypertension and probable obstructive sleep apnea not on CPAP who presented with left-sided weakness and facial droop. 1. Probable right-sided CVA, present on admission. Active. -Patient presented with left-sided weakness, facial droop, and expressive aphasia with slight slurring of speech. -CT brain without contrast and CTA did not demonstrate any acute intracranial abnormalities. -Ordered MR stroke, pending. -NIH score of 4. Continue NIH neuro checks every 4 hr. -Allow for permissive hypertension. -Risk stratify with fasting lipid panel and hemoglobin A1c. -Ordered PT/OT/ST evaluation and treatment pending. -Received aspirin 325 mg in the ED. Started patient on aspirin 81 mg daily and atorvastatin 40 mg daily at bedtime. Patient reports he takes aspirin 81 mg but not every day. -Continue to monitor closely on telemetry. Patient has been in normal sinus rhythm without ectopy thus far. 2. Hypertension, chronic, present on admission. Stable. -Continue to allow for permissive hypertension for the next 24-48 hours. Blood pressure goal not on thrombolysis is to treat only if > 220 systolic or 120 Diastolic. 3. Hyperlipidemia, chronic, present on admission. Stable. -Started on atorvastatin 40 mg daily at bedtime as above. 4. Probable obstructive sleep apnea, chronic, present on admission. Stable. -Patient would benefit from sleep study and CPAP. Patient is admitted under observation status with expected length of stay less than 2 midnights due to severity of presenting symptoms, risk of adverse event, and complexity of treatment plan. Quality VTE Deep Vein Thrombosis/Pulmonary Embolism Present on Admission: No
[2018-09-24] MEDS: SODIUM CHLORIDE 0.9% 1,000 ML 100 ML IV (13:43)
[2018-09-24 13:50] LABS: Hemoglobin A1C% w Est Avg Glu 5.2 % (4.0-6.0)
[2018-09-24 14:16] LABS: Cholesterol 192 mg/dL (140-199); HDL Cholesterol 41 mg/dL (40-60); LDL Cholesterol Calculated 127 mg/dL (<100); Triglycerides 120 mg/dL (35-150)
--- NOTE | 2018-09-24 15:20 | ST.IPIE ---
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 Byrd Setting Assessment Location Acute Care Visit Type Note Type Initial Evaluation Next Note Type Next Note Type Treatment Note Patient Information Identification Type Name History Patient is a 62-year-old male who was brought into the emergency department by his girlfriend for left sided weakness and vomiting. No other medical history noted on H&P. Subjective Observations Patient seen lying in bed. No others present in the room. He agreed to sit up and participate in the evaluation. His eye contact was inconsistent, but he was pleasant and cooperative and was oriented to self and situation. Decreased eye contact may be related to visual neglect as I stood on the left side of the bed for the entire session. Evaluation Liquids Trialed Ice Chips Thin Solids Trialed Mechanical Soft Regular Administration Type Self-Feeding Oral Impairment Mildly Impaired Oral Strategies Upright at 90 degrees Lingual Sweep Controlled Bite/Sip Size Oral Phase Comments Deviation of tongue tip upon protrusion; however, patient is able to lateralize tongue and perform tongue sweep on both sides. No other abnormal findings on oral mech. Patient self-fed trials using appropriate bolus size at a normal rate. Mild anterior loss of bolus with yogurt which patient caught with his tongue. Mastication and bolus transport appear functional. No oral residue observed. Education provided regarding possibility of pocketing on left side and importance of performing lingual sweep following meals in case of decreased awareness. Pharyngeal Impairment WFL Pharyngeal Phase Comments Hyolaryngeal elevation present upon palpation. Soft palate elevated during phonation and alternating phonation and relaxation. No signs of aspiration during all trials. Voicing was clear without wetness or coughing following all PO intake. Findings Rehabilitation Potential Excellent Impressions Patient presents with mild oral phase dysphagia related to left-sided weakness . He exhibits good self- awareness to deficits and compensated for his impairment by using a slow rate and tongue sweep as needed. Diet Recommendations Liquids Order Thin Diet Order Regular Medication Recommendations As Tolerated Additional Dietary Needs Controlled Sips Reminders to Use Strategies Aspiration Precautions Recommended Precautions Upright at 90 Degrees Small Bites/Sips Treatment Plan Therapy Recommendations Brandon will demonstrate the ability to adequately self- monitor swallowing skills and perform appropriate compensatory techniques including tongue sweep to successfully and safely consume the least restrictive diet. 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 Motor Speech Evaluation Start: 09/24/18 16:14 Freq: Status: Active Protocol: Document 09/24/18 16:15 TLC (Rec: 09/24/18 16:29 TLC [id number]) Motor Speech Evaluation Oral Motor Respiration/Phonation Phonation Quality WNL Loudness WNL Diadochokinetic Rates P^ Quality Mild Impairment T^ Quality Mild Impairment K^ Quality Mild Impairment P^T^K^ Quality Mild Impairment Speech Intelligibility Awareness/Strategy Use Description Type of awareness/use Uses consistently Findings Details Motor Speech Function Mild Impairment Assessment Details Assessment Receptive and expressive language were not assessed formally, but appeared within functional limits. Speech was assessed during diadochokinetic speech tasks, automatic speech tasks, reading and in conversation. 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 His speech was 100% intelligible. He also presented with masked facial expressions and reduced eye contact as stated before, though this could be related to left visual field neglect. When asked about his speech, he reported he felt his speech was slow and labored. He complained of difficulty getting words out, though denied any word finding difficulty. He currently compensates by choosing his words carefully and planning out his speech when talking. Prognosis Rehabilitation Potential Good Recommendations Treatment Recommended Yes Short Term Goals Brandon will improve articulatory proficiency and dysprosody and utilize compensatory strategies as needed to improve perceptual characteristics of his speech. Patient/Family Education Education Patient Understanding
[2018-09-24] MEDS: HEPARIN 5,000 UNIT/ML VIAL 5000 UNIT SUBCUT (21:10)
[2018-09-24] MEDS: ATORVASTATIN 20 MG TABLET 40 MG PO (21:10)
[2018-09-25] VITALS (8 sets, daily range): BP systolic 133–152; BP diastolic 73–95; PULSE 57–63; RESP 14–20; TEMP 36.3–37; O2SAT 93–97
--- NOTE | 2018-09-25 01:30 | PC.NURSE ---
Patient is alert and oriented; has an NIH score of 7: has left facial droop, left extremity weakness/ataxia and some slurring of words. Breath sounds CTA with RA sat of 96%. HRR but with elevated BP of 152/94. Telemetry reading was SB Denies nausea. BT present and abdomen is soft. Denies urinary problems. Is able to turn himself in bed but reportedly is very unsteady when up due to left LE weakness. Does complain of 2/10 aching type pain behind his eyes but declines intervention. Fall risk score is high and bed alarm is activated.
--- NOTE | 2018-09-25 07:02 | PM.PN.1 ---
Subjective Date Patient Seen: 09/25/18 Interval history: Brandon Ivey is a 62-year-old male with a past medical history significant for hypertension and probable obstructive sleep apnea not on CPAP who presented with left-sided weakness and facial droop and was found to have a acute right pontine CVA. The patient is resting in bed comfortably. He continues to exhibit mild slurred speech with expressive aphasia. He reports that his left leg has improved but his left arm feels mildly weaker than yesterday. He has significant weakness of his left upper extremity +2/5. He denies headache, shortness of breath, chest pain, abdominal pain, nausea, vomiting, fever, chills, dysuria, diarrhea or constipation. He is voiding without difficulty. He has not had a bowel movement since admission. He is up ambulating with assistance and physical therapy. Exam Vital Signs (past 8 hours): - 09/25/18 01:00 09/25/18 05:21 Temperature 98.6 F 97.7 F Pulse Rate 63 60 Respiratory Rate 17 14 Blood Pressure 152/94 H 140/77 Pulse Oximetry 96 93 Oxygen Delivery Method Room Air Oxygen Flow Rate 0 Narrative Exam Narrative: General: Older male sitting in bed and in no acute distress, appears older than stated age, well-developed, well-nourished, appropriately interactive. HEENT: Normocephalic, atraumatic. External ears without defect. Pupils equal, round, and reactive to light. Anicteric sclerae, moist conjunctivae, and no lid lag. Oropharynx free of erythema and cobble stoning with moist mucosa. Neck: Supple with full range of motion. No jugular venous distension. No bruits. No lymphadenopathy or thyromegaly. Cardiovascular: Regular rate and rhythm without murmurs, rubs, or gallops appreciated Pulmonary: Clear to auscultation bilaterally without crackles, wheezes, or rhonchi. Normal respiratory effort with no use of accessory muscles. Abdomen: Soft, bowel sounds present, nontender, nondistended. No hepatosplenomegaly or masses appreciated. Extremities: No clubbing, cyanosis, or edema. Skin: Normal temperature, turgor, and texture; no rash, ulcers, or subcutaneous nodules appreciated. 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 Right upper and lower extremity normal muscle strength 5/5. [id number] intact bilaterally. Psychiatric: Normal mood and affect. Alert and oriented to person, place, and time. Objective Labs Result Diagrams: 09/24/18 09:00 09/24/18 09:00 Labs: Laboratory Results - last 24 hr 09/24/18 09/24/18 09/24/18 09:00 09:00 09:00 WBC 6.7 RBC 5.01 Hgb 16.0 Hct 45.9 MCV 91.7 MCH 31.9 MCHC 34.8 RDW 12.7 Plt Count 234 Neut % (Auto) 67.3 Lymph % (Auto) 23.1 L Geary % (Auto) 8.6 Eos % (Auto) 0.3 L Baso % (Auto) 0.7 Neut # (Auto) 4500 Lymph # (Auto) 1500 Geary # (Auto) 600 Eos # (Auto) 0 Baso # (Auto) 0 PT 12.3 INR 1.1 APTT 28 Sodium 136 L Potassium 3.4 Chloride 102 Carbon Dioxide 24 BUN 14 Creatinine 0.70 Estimated GFR > 60.0 BUN/Creatinine Ratio 20.0 Glucose 115 H Hemoglobin A1c Calcium 9.6 Total Bilirubin 0.9 AST 35 ALT 53 Alkaline Phosphatase 35 L Total Creatine Kinase 65 CK-MB (CK-2) TNP CK-MB (CK-2) Rel Index TNP Troponin I < 0.012 Total Protein 7.4 Albumin 4.6 Globulin 2.8 Albumin/Globulin Ratio 1.6 Triglycerides Cholesterol LDL Cholesterol, Calc HDL Cholesterol Urine Opiates Screen Ur Oxycodone Screen Urine Methadone Screen Ur Barbiturates Screen U Tricyclic Antidepress Ur Phencyclidine Scrn Ur Amphetamines Screen U Methamphetamines Scrn Ur MDMA Scrn (Ecstasy) U Benzodiazepines Scrn Urine Cocaine Screen U Marijuana (THC) Screen 09/24/18 09/24/18 09/24/18 09:00 14:07 Unknown WBC RBC Hgb Hct MCV MCH MCHC RDW Plt Count Neut % (Auto) Lymph % (Auto) Geary % (Auto) Eos % (Auto) Baso % (Auto) Neut # (Auto) Lymph # (Auto) Geary # (Auto) Eos # (Auto) Baso # (Auto) PT INR APTT Sodium Potassium Chloride Carbon Dioxide BUN Creatinine Estimated GFR BUN/Creatinine Ratio Glucose Hemoglobin A1c 5.2 Calcium Total Bilirubin AST ALT Alkaline Phosphatase Total Creatine Kinase CK-MB (CK-2) CK-MB (CK-2) Rel Index Troponin I Total Protein Albumin Globulin Albumin/Globulin Ratio Triglycerides 120 Cholesterol 192 LDL Cholesterol, Calc 127 H HDL Cholesterol 41 Urine Opiates Screen Negative Ur Oxycodone Screen Negative Urine Methadone Screen Negative Ur Barbiturates Screen Negative U Tricyclic Antidepress Negative Ur Phencyclidine Scrn Negative Ur Amphetamines Screen Negative U Methamphetamines Scrn Negative Ur MDMA Scrn (Ecstasy) Negative U Benzodiazepines Scrn Negative Urine Cocaine Screen Negative U Marijuana (THC) Screen Negative Assessment & Plan Assessment & Plan narrative: Brandon Ivey is a 62-year-old male with a past medical history significant for hypertension and probable obstructive sleep apnea not on CPAP who presented with left-sided weakness and facial droop and was found to have a acute right pontine CVA. 1. Acute right pontine CVA, present on admission. Active. -Patient presented with left-sided weakness, facial droop, and expressive aphasia with slight slurring of speech. -CT brain without contrast and CTA did not demonstrate any acute intracranial abnormalities. -MR stroke protocol demonstrated acute right pontine CVA. -Echocardiogram with bubble study ordered and pending. -NIH score of 4. Continue NIH neuro checks every 4 hr. -Allow for permissive hypertension. -Risk stratify with hemoglobin A1c within normal limits at 5.2% and fasting lipid panel: Total cholesterol 192, triglycerides 120, LDL 127, and HDL 41. -Ordered PT/OT/ST evaluation and treatment, pending. -Received aspirin 325 mg in the ED. Started and continue patient on aspirin 81 mg daily and atorvastatin 40 mg daily at bedtime. Patient reports he takes aspirin 81 mg but not every day. -Continue to monitor closely on telemetry. Patient has been in normal sinus rhythm without ectopy thus far. 2. Hypertension, chronic, present on admission. Stable. -Continue to allow for permissive hypertension for the next 24-48 hours. Blood pressure goal not on thrombolysis is to treat only if > 220 systolic or 120 Diastolic. 3. Hyperlipidemia, chronic, present on admission. Stable. -Fasting lipid panel as above. -Continue atorvastatin 40 mg daily at bedtime as above. 4. Probable obstructive sleep apnea, chronic, present on admission. Stable. -Patient would benefit from sleep study and CPAP. Disposition: Patient likely to discharge in 1-2 days depending upon improvement in CVA symptoms with aggressive physical and occupational therapies. Would benefit from inpatient versus senior living facility for aggressive rehabilitation over the next several weeks. Quality VTE Deep Vein Thrombosis/Pulmonary Embolism Present on Admission: No
[2018-09-25] MEDS: HEPARIN 5,000 UNIT/ML VIAL 5000 UNIT SUBCUT ×2 (09:00→22:09)
[2018-09-25] MEDS: SODIUM CHLORIDE 0.9% FLUSH 10 ML IV ×3 (09:01→22:13)
[2018-09-25] MEDS: ASPIRIN EC 81 MG TABLET PO (09:01)
--- NOTE | 2018-09-25 10:35 | PT.IIE ---
Surgical History (Last Reviewed 09/24/18 @ 19:25 by Cyn Sutton DO) H/O cataract removal with insertion of prosthetic lens (Acute) H/O right inguinal hernia repair (Acute) Medical History (Last Reviewed 09/24/18 @ 19:25 by Cyn Sutton DO) HTN (hypertension) (Acute) Hyperlipidemia (Acute) CHRISTINE (obstructive sleep apnea) (Acute) Physical Therapy Inpatient Evaluation/Re-Eval M1 PT/OT-IP Prior Functional Status Start: 09/24/18 15:09 Freq: NEEDED Status: Active Protocol: Document 09/25/18 09:47 RS (Rec: 09/25/18 09:53 RS [email or web address]) Medical Review Prior Functional Status Medical History Reviewed Yes Diet/Fluid Consistency Regular Communication no known deficits Mobility and Gait completely independent without AD, no falls, didn't feel limited in any way Activities of Daily Living and IADL's denies needing assist with anything Prior Functional Level (Other details) likes to ride a motorcycle Social History Household Members none Living Arrangements House Number of Floors (Floors) 3 or More Floors Number of Stairs To Enter/Railing? 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 PT-IP Current Condition Start: 09/24/18 15:09 Freq: NEEDED Status: Active Protocol: Document 09/25/18 09:47 RS (Rec: 09/25/18 09:53 RS [email or web address]) Physical Therapy Current Condition Current Condition Evaluation Date 09/25/18 Treatment Diagnosis R pontine ischemic infarct - impaired mobility Onset Date 09/24/18 Precautions Other Precautions high fall risk M3 PT-IP Subjective Start: 09/24/18 15:09 Freq: NEEDED Status: Active Protocol: Document 09/25/18 09:47 RS (Rec: 09/25/18 09:53 RS [email or web address]) Subjective Physical Therapy Visit Type Type Initial Evaluation Visit Start Time 08:40 Visit Stop Time 09:47 Total Visit Minutes 67 Physical Therapy Visit Comments Patient Comments Pt reports doing well, tends not to make eye contact while talking but no gaze preference , M4 PT-IP Mobility and Gait Start: 09/24/18 15:09 Freq: NEEDED Status: Active Protocol: Document 09/25/18 09:47 RS (Rec: 09/25/18 10:34 RS [email or web address]) PT-Bed Mobility Assessment Supine to Sit Supine to Sit Contact Guard Assistance PT-Transfer Assessment Sit to and From Stand Sit to and from Stand Contact Guard Assistance Equipment Transfer Assistive Device Gait Belt Front Wheeled Walker Transfers Transfer Destination Bed Chair Transfer Technique Stand Step Pivot Transfer Ability Level of Assist Minimal Assistance Comments Mobility Comments Pt able to stand up fairly well but needs verbal cues for technique. Static standing balance is decent as well, however, when head turns or other dynamic components are added pt needs at least min A to maintain balance. With step -pivot turn to chair pt likewise needing min A to maintain upright balance. 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 Pt tends to lean to L and this gets worse with distractions. Pt needing a second hand on L flank to help maintain posture. Pt tends to scissor and have variable stepping pattern in general along with veering to the L. Again, this is worse with distractions, and pt is easily distracted. Stair Climbing Assessment Comments Stair Climbing Comments not tested PT-Balance Assessment Sitting Balance and Reactions Static Sitting Balance Ability Good Dynamic Sitting Balance Ability Good Standing Balance and Reactions Static Standing Balance Ability Fair Dynamic Standing Balance Ability Poor Device Used FWW M5 PT-IP Objective Assessments Start: 09/24/18 15:09 Freq: NEEDED Status: Active Protocol: Document 09/25/18 09:47 RS (Rec: 09/25/18 10:34 RS [email or web address]) Orientation Orientation/Cognition Level of Alertness Alert Orientation Name Age Birthday Month Date Year Day of Week Place Situation Language Function Ability Expressive Aphasia Word Finding Difficulties Safety Awareness Decreased Safety Awareness Gross Range of Motion Upper Extremity ROM Assessment Left Impaired Impairments PROM relatively intact but AROM limited due to weakness. Lower Extremity ROM Assessment Within Functional Limits Strength Upper Extremity Strength Assessment Left Impaired Lower Extremity Strength Assessment Left Impaired Hip 3+/5 Knee 3+/5 Ankle 3+/5 Coordination Assessment Gross Coordination Gross Coordination Impaired Assessment Finger to Nose Test Moderate Impairment Pronation/Supination Test Moderate Impairment Foot Tapping Test Moderate Impairment Heel on Johnson Test Moderate Impairment Coordination Comments Some of the slowness and test deficits are related to weakness, but definitely impaired coordination on all tests Sensation Assessment Sensation Light Touch Impaired Comments Sensation Comments Pt denies sensation deficits but only 50-75% for light touch on L side. Muscle Tone Muscle Tone WNL No Muscle Tone Location Left Upper Extremity Type of Tone Hypotonicity Severity of Tone Mild M7 PT-IP Assessment and Plan Start: 09/24/18 15:09 Freq: NEEDED Status: Active Protocol: Document 09/25/18 09:47 RS (Rec: 09/25/18 10:34 RS [email or web address]) PT Summary Assessment and Plan Potential Rehabilitation Potential Excellent Status of Condition at Evaluation Stable Summary Impairments Strength Balance Coordination Sensation Tone Cognition Transfers Gait Assessment Summary Pt admitted with R pontine ischemic infarct and presents with correlating L sided strength, coordination, and balance deficits. Pt currently requires up to mod A with FWW for mobility which is far below pt's reported functional baseline. Pt has great potential for functional improvement and will benefit from daily high intensity skilled therapies available at inpatient rehab (IRF). If patient were to chose to go directly home, he would require 24/7 assist and as much outpatient therapy as possible. Goals Bed Mobility Goal Independent Transfer Goal Standby Assistance Contact Guard Assistance Gait Goal Contact Guard Assistance Minimal Assistance Gait Distance 100 Other Goals no AD Days to Meet Goals 4 Frequency of Treatment Frequency Of Treatment Twice a Day Treatment Plan Physical Therapy Treatment Plan Bed Mobility Training Transfer Training Gait Training Therapeutic Exercise Balance Retraining Post Op Education Discharge Planning Hot or Cold Pack Neuromuscular Re-ed Coordination Retraining Manual Therapy Other Recommendations and Next Treatment balance, coordination, trial Focus walking without AD Recommendations To Nursing Amount of Assist Needed 1 Person Assist Discharge Recommendations PT Discharge Recommendations Acute Rehab
--- NOTE | 2018-09-25 10:46 | CM.DANOTE ---
Addendum entered by Hazel Preciado R.N. 09/25/18 12:38: Called [facility] inpatient [facility]. Spoke to Kristyana, for [facility] is only there on week-ends. [facility] is main door person. She stated that they take [facility], but need to have clinicals, and any therapy notes. They then would contact [facility]. Faxed clinicals and therapy notes to [facility]. Fax number for [facility] is: [phone]. Phone number is: [phone]. Called other skilled facilities to see if they take [facility]. Was able to reach out to Luann in admissions at [facility] in [facility]. She stated that they are contracted with [facility]. Will also fax over clinical information. Original Note: DCP: Case received, EMR reviewed and met with patient. Introduced self and role. DCP template completed with information currently available. Patient is a 62 year old male who admitted yesterday morning to the care of the hospitalist team. PCP: None at the present. [facility] [place] Patient came to hospital via family vehicle due to left sided weakness, deficit, as well as vomiting. Patient had MRI, which was confirmed CVA. Met with patient, alert and oriented, no noted aphasia. Had a friend in his room. He has no primary provider. Stated that he has not had one since 2016. Stated [place], and never obtained a provider. Discussed [facility] clinic, may take his insurance. Has been independent at home, is not , lives alone here in [place]. Discussed patient at rounds. Hospitalist, Dr. Byrd, feels that patient may benefit from inpatient rehabilitation, such as [facility]. Unsure if they will take his insurance, may be the main barrier. Will attempt to reach them today. P: DCP to continue to follow. Will need some type of skilled/rehab, but will be dependent upon his insurance, [facility]. Hazel Preciado RN/Tape Making Machine Operator
--- NOTE | 2018-09-25 14:17 | PT.IPTN ---
Physical Therapy Treatment Note M2 PT-IP Current Condition Start: 09/24/18 15:09 Freq: NEEDED Status: Active Protocol: Document 09/25/18 09:47 RS (Rec: 09/25/18 09:53 RS [email or web address]) Physical Therapy Current Condition Current Condition Evaluation Date 09/25/18 Treatment Diagnosis R pontine ischemic infarct - impaired mobility Onset Date 09/24/18 Precautions Other Precautions high fall risk M3 PT-IP Subjective Start: 09/24/18 15:09 Freq: NEEDED Status: Active Protocol: Document 09/25/18 14:35 RS (Rec: 09/25/18 14:46 RS [id number]) Subjective Physical Therapy Visit Type Type Treatment Note Visit Start Time 13:30 Visit Stop Time 14:17 Total Visit Minutes 47 Physical Therapy Visit Comments Patient Comments Pt very agreeable to participate in therapy session . Therapy Pain Assessment Pain When Pain Assessed At Rest Pain Present Pain Present Denied Pain M4 PT-IP Mobility and Gait Start: 09/24/18 15:09 Freq: NEEDED Status: Active Protocol: Document 09/25/18 14:35 RS (Rec: 09/25/18 14:46 RS [id number]) PT-Bed Mobility Assessment Supine to Sit Supine to Sit Standby Assistance Sit to Supine Sit to Supine Standby Assistance PT-Transfer Assessment Sit to and From Stand Sit to and from Stand Contact Guard Assistance Equipment Transfer Assistive Device Gait Belt Front Wheeled Walker Transfers Transfer Destination Bed Chair Transfer Technique Stand Step Pivot Transfer Ability Level of Assist Minimal Assistance Comments Mobility Comments Pt able to perform bed mobility without any assist but did get up to sitting with HOB elevated, will need to continue to trial from a flat bed. Pt did not need any cues for technique t/o entire session, able to get L hand up on FWW handle first and then push up from seat with R hand. Balance standing also better. Pt still needing initial min A to get started with step- pivot transfer to maintain balance, but after first attempt was functioning more at CGA when using a FWW. However, also tried both sit<> stand and step-pivot transfer without using a FWW, and he required up to mod A to maintain upright stability. Gait Assessment Gait Gait Assistance Required: Minimum Assistance Distance (Feet) 100 Assistive Devices Assistive Device Gait Belt Front Wheeled Walker Gait Deviations General Gait Pattern Ataxic Decreased Feet Clearance Lateral Trunk Lean Narrow Based Gait Factors Limiting Gait Function Factors Limiting Gait Function Decreased Sensation Decreased Strength Incoordination Poor Balance Poor Safety Awareness Comments Gait Comments Pt able to maintain neutral trunk position without additional assist this session , there was also less veering to the L. With cues and intermittent exercises, pt's step had less scissoring and overall were more fluid. Still needing min A at times to reposition L hand and to help with weight shifting at pelvis . Stair Climbing Assessment Comments Stair Climbing Comments not tested PT-Balance Assessment Sitting Balance and Reactions Static Sitting Balance Ability Good Dynamic Sitting Balance Ability Good Standing Balance and Reactions Static Standing Balance Ability Fair Dynamic Standing Balance Ability Poor Device Used FWW M5 PT-IP Objective Assessments Start: 09/24/18 15:09 Freq: NEEDED Status: Active Protocol: Document 09/25/18 09:47 RS (Rec: 09/25/18 10:34 RS [email or web address]) Orientation Orientation/Cognition Level of Alertness Alert Orientation Name Age Birthday Month Date Year Day of Week Place Situation Language Function Ability Expressive Aphasia Word Finding Difficulties Safety Awareness Decreased Safety Awareness Gross Range of Motion Upper Extremity ROM Assessment Left Impaired Impairments PROM relatively intact but AROM limited due to weakness. Lower Extremity ROM Assessment Within Functional Limits Strength Upper Extremity Strength Assessment Left Impaired Lower Extremity Strength Assessment Left Impaired Hip 3+/5 Knee 3+/5 Ankle 3+/5 Coordination Assessment Gross Coordination Gross Coordination Impaired Assessment Finger to Nose Test Moderate Impairment Pronation/Supination Test Moderate Impairment Foot Tapping Test Moderate Impairment Heel on Johnson Test Moderate Impairment Coordination Comments Some of the slowness and test deficits are related to weakness, but definitely impaired coordination on all tests Sensation Assessment Sensation Light Touch Impaired Comments Sensation Comments Pt denies sensation deficits but only 50-75% for light touch on L side. Muscle Tone Muscle Tone WNL No Muscle Tone Location Left Upper Extremity Type of Tone Hypotonicity Severity of Tone Mild M6 PT-IP Treatment Start: 09/24/18 15:09 Freq: NEEDED Status: Active Protocol: Document 09/25/18 14:35 RS (Rec: 09/25/18 14:46 RS [id number]) Physical Therapy Treatment Other Treatments Other Treatment Performed static marching x 15 each leg, marching while walking x 20 ft, side stepping at ceballos wall rail 2x10ft in each direction , minisquats in front of chair x 10 M7 PT-IP Assessment and Plan Start: 09/24/18 15:09 Freq: NEEDED Status: Active Protocol: Document 09/25/18 14:35 RS (Rec: 09/25/18 14:46 RS [id number]) PT Summary Assessment and Plan Potential Rehabilitation Potential Excellent Status of Condition at Evaluation Stable Summary Impairments Strength Balance Coordination Sensation Tone Cognition Transfers Gait Progress Towards Goals Progressing Toward Goals Assessment Summary Pt is already making functional gains just compared to this morning. Pt continues to demo excellent potentional for functional improvement, continue to recommend transition to IRF once medically ready. Goals Bed Mobility Goal Independent Transfer Goal Standby Assistance Contact Guard Assistance Gait Goal Contact Guard Assistance Minimal Assistance Gait Distance 100 Other Goals no AD Days to Meet Goals 4 Frequency of Treatment Frequency Of Treatment Twice a Day Treatment Plan Physical Therapy Treatment Plan Bed Mobility Training Transfer Training Gait Training Therapeutic Exercise Balance Retraining Post Op Education Discharge Planning Hot or Cold Pack Neuromuscular Re-ed Coordination Retraining Manual Therapy Other Recommendations and Next Treatment balance, coordination, pregait Focus w.out AD and walking without AD, stairs? Recommendations To Nursing Amount of Assist Needed 1 Person Assist Discharge Recommendations PT Discharge Recommendations Acute Rehab
--- NOTE | 2018-09-25 15:06 | OT.IP.EVAL ---
Past Medical History (Last Reviewed 09/24/18 @ 19:25 by Cyn Sutton DO) HTN (hypertension) (Acute) Hyperlipidemia (Acute) CHRISTINE (obstructive sleep apnea) (Acute) Surgical History (Last Reviewed 09/24/18 @ 19:25 by Cyn Sutton DO) H/O cataract removal with insertion of prosthetic lens (Acute) H/O right inguinal hernia repair (Acute) Occupational Therapy Inpatient Evaluation/Re-Eval M1 PT/OT-IP Prior Functional Status Start: 09/24/18 15:09 Freq: NEEDED Status: Active Protocol: Document 09/25/18 15:06 PJM (Rec: 09/25/18 16:24 PJM [id number]) Medical Review Prior Functional Status Medical History Reviewed Yes Diet/Fluid Consistency Regular Communication no known deficits Mobility and Gait completely independent without AD, no falls, didn't feel limited in any way Activities of Daily Living and IADL's Pt indep with all self care, IADLS, driving and currently remodeling his house Prior Functional Level (Other details) likes to ride a motorcycle Social History Household Members none Living Arrangements House Number of Floors (Floors) Two Floors Number of Stairs To Enter/Railing? 5 stairs to enter with B rails , pt can stay on main level of home Home Environment Standard Height Toilet Tub/Shower Employment Status Retired Additional Social History Comment no DME at home M2 OT-IP Current Condition Start: 09/25/18 15:53 Freq: Status: Active Protocol: Document 09/25/18 15:06 PJM (Rec: 09/25/18 16:24 PJM [email or web address]) Occupational Therapy Current Condition Current Condition Evaluation Date 09/25/18 Treatment Diagnosis decreased LUE function, decreased indep in all self care,mobility s/p stroke Diagnosis Onset Date 09/24/18 Post Operative Precautions Other Precautions fall risk, L hemiparesis, LUE neglect Weight Bearing Status Weight Bearing Status Weight Bear as Tolerated M3 OT- IP Subjective and Pain Start: 09/25/18 15:53 Freq: Status: Active Protocol: Document 09/25/18 15:06 PJM (Rec: 09/25/18 16:24 PJM [email or web address]) OT- Subjective Occupational Therapy Visit Type Type Initial Evaluation Visit Start Time 14:12 Visit Stop Time 15:06 Total Visit Minutes 54 Notes Pt's brother observing first half of session Occupational Therapy Visit Comments Patient Comments I have ADD. I don't make eye contact because I am embarrassed about this. Patient/Caregiver Goals to be able to walk independently and use L hand for functional tasks so I can be independent again OT Pain Assessment Pain When Pain Assessed After Treatment Pain Present Pain Present Denied Pain M4 OT- IP ADL's Start: 09/25/18 15:53 Freq: Status: Active Protocol: Document 09/25/18 15:06 PJM (Rec: 09/25/18 16:24 PJ [email or web address]) OT EYN-Iqko-Rvekegx General Evaluation Self-Feeding Ability Independent Areas Needing Assistance Cutting Food Opening Containers Comments OT Self-Feeding Comments pt needs set up due to unilateral function; pt feeds self with R dominant hand. L facial weakness noted. Pt reports retrieving some minimal residual food out of L cheek after lunch. None noted during oral care this session. OT ADL-Grooming General Evaluation Grooming Ability Standby Assistance Areas Needing Assistance Retrieving/Set-up of Grooming Items Combing/Brushing Hair Face Washing Comments OT Grooming Comments pt seated EOB for grooming tasks,brother to bring pt's razor in OT ADL-Oral Care General Eval Oral Care Ability Minimal Assistance Areas of Assistance Brushing Teeth Devices Oral Care Devices Toothbrush Comments Oral Care Comments pt needs min assist for set up and adapted techniques; began education re: unilateral compensatory strategies OT ADL-Dressing General Eval Upper Body Dressing Ability Minimal Assistance Lower Body Dressing Ability Minimal Assistance Areas Needing Assistance Underpants/Brief Comments OT Dressing Comments pt needs min assist with undershorts for standing balance and to pull them up on L hip; pt max assist with socks and shoes at present OT ADL-Toileting General Evaluation Toileting Ability Standby Assistance Devices Toileting Assistive Devices Urinal Comments OT Toileting Comments pt has been using urinal seated EOB OT ADL-Bathing Comments OT Bathing Comments to be assessed; pt would like to shower tomorrow M5 OT- IP IADL's Start: 09/25/18 15:53 Freq: Status: Active Protocol: Document 09/25/18 15:06 PJM (Rec: 09/25/18 16:24 PJ [email or web address]) OT-Instrumental Activities of Daily Living Deficits IADL Deficits Identified Deficits Home Safety Awareness Awareness of Need for Assistance at Home Good Awareness Medication Management Medication Management Comments pt currently needs assist due to unilateral function and inability to manage containers Money Management Money Management Comments to be assessed Meal Preparation Meal Preparation Comments pt currently needs assist due to decreased mobility and non functional L hand 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 Comments pt currently needs assist due to decreased mobility and non functional L hand Driving Driving Comments needs further assessment when mobility improves M6 OT- IP Functional Cognition Start: 09/25/18 15:53 Freq: Status: Active Protocol: Document 09/25/18 15:06 [facility] (Rec: 09/25/18 16:24 [facility] [email or web address]) Cognitive Factors Limiting Selfcare Function Cognitive Ability Level of Alertness Alert Patient Orientation Name Age Birthday Month Date Year Day of Week Place Situation Attention Span Ability Capable of Focused Attention Capable of Sustained Attention Ability to Follow Commands Able to Follow One Step Commands Memory Description No Deficits Noted Cognitive Tests MOCA 30/30 per S.T. assessment Cognitive Comments Cognitive Assessment Comments Pt alert and fully oriented. He follows one step commands without difficulty. Pt presents with flat affect and decreased eye contact but motivated and very cooperative with therapy. OT- Vision and Hearing OT- Hearing Assessment OT- Hearing Assessment WFL OT- Vision Assessment Visual Acuity WFL Glasses For Reading Visual Attentiveness WFL Occular Pursuits Impaired Horizontal Visual [place] WFL Diplopia Absent Visual Spacial Neglect Left Vision Assessment Comments Pt has one beat of nystagmus to far R of midline with horizontal ocular pursuits with mildy dysconjugate gaze noted during ocular pursuits in all planes. He denies double vision. Pt s/p B cataract surgery. Pt demonstrates moderate LUE neglect during bed mobility despite intact sensation. M7 OT- IP Mobility and Balance Start: 09/25/18 15:53 Freq: Status: Active Protocol: Document 09/25/18 15:06 [facility] (Rec: 09/25/18 16:24 [facility] [email or web address]) OT- Bed Mobility Assessment Rolling Type of Rolling Roll to Right Level of Assistance Standby Assistance Supine to Sit Supine to Sit Assist Standby Assistance Sit to Supine Sit to Supine Assist Standby Assistance Scooting Scooting to Edge of Bed Contact Guard Assistance OT-Transfer Assessment Sit to and From Stand Sit to and from Stand Minimal Assistance 1 Person Assistance Devices Transfer Assistive Devices Gait Belt Front Wheeled Walker Comments Mobility Comments standing for lower body clothing management; needs assist for L hand placement and balance OT- Gait Assessment Comments Gait Ability Comments see P.T. notes OT- Balance Assessment Sitting Balance and Reactions Static Sitting Balance Ability Good Dynamic Sitting Balance Ability Fair Standing Balance and Reactions Static Standing Balance Ability Fair M8 OT- IP Objective Assessments Start: 09/25/18 15:53 Freq: Status: Active Protocol: Document 09/25/18 15:06 PJM (Rec: 09/25/18 16:24 PJM [id number]) OT Gross Range of Motion Upper Extremity Range of Motion ROM Impairments RUE AROM WNL LUE AAROM WFL OT Strength Upper Extremity Strength Shoulder R 5/5 L 3-/5 flexion and abduction Elbow R 5/5 L 4-/5 flex/ext Forearm R 5/5 L 3+/5 pronation and supination Wrist R 5/5 L 3+/5 wrist extension Hand R 5/5 L 2-/5 mass finger flex/ext, 0/5 in thumb Hand Map Plotter Strength Hand Dominance Right Comments Strength Comments Significant LUE weakness noted throughout LUE; especially distally OT- Coordination Assessment Comments Coordination Comments RUE/hand WNL LUE has gross coordination deficits due to proximal weakness; L hand non functional as stabilizer due to weakness in fingers and lack of thumb movement OT-Muscle Tone Assessment Muscle Tone WNL No Muscle Tone Location Left Upper Extremity Type of Tone Hypertonicity Severity of Tone Mild Jah Grade Scale Grade 1 Comments Muscle Tone Comments Pt has trace of increased tone in elbow extensors with quick stretch. Pt has incompletely isolated shoulder and elbow movements against gravity. OT Sensation Assessment Comments Summary Comments RUE WNL LUE light touch/localization WNL throughout LUE/hand. Proprioception intact at all joints. Edema Edema Present Edema Comments Mild L hand edema noted M9 OT- IP Assessment and Plan Start: 09/25/18 15:53 Freq: Status: Active Protocol: Document 09/25/18 15:06 PJ (Rec: 09/25/18 16:24 PJM [email or web address]) OT Summary Assessment and Plan Potential Rehabilitation Potential Excellent Analytic Complexity at Evaluation Low Summary OT Impairments Range of Motion Strength Balance Coordination Functional Mobility Self-Feeding Grooming Dressing Toileting Bathing Toilet Transfers Shower Transfers Assessment Summary Low complexity OT assessment completed on this 62 yr old man s/p new R pontine infarct with significant L side hemiparesis. Pt's L hand is non functional at present due to weakness but he has intact sensation which is a good prognostic sign. Pt demonstrates moderate LUE neglect during bed mobility today. Pt has decreased independence in all self care and functional mobility as well as decreased independence in all IADLS/driving. He is far below his baseline level of function of living alone, doing remodeling and motorcylcle riding. Pt is an excellent candidate for an acute in pt rehab program from OT standpoint. He is motivated with good effort and participation. Pt will benefit from OT services here to address the goals below. Goals Grooming Goal Standby Assistance Dressing Goal Minimal Assistance Toileting Goal Standby Assistance Bathing Goal Minimal Assistance Toilet Transfer Goal Standby Assistance Shower Transfer Goal Contact Guard Assistance Patient/Caregiver Education Goal Demonstrate Energy Conservation and Pacing OT-Other Goals Grooming to be done standing at sink with no loss of balance and utilizing unilateral straetegies. Days to Meet Goals 7 Frequency of Treatment Frequency Of Treatment Once a Day Treatment Plan OT Treatment Plan ADL Training Functional Mobility Neuromuscular Re-education Patient/Family Education Discharge Planning Other Treatment Recommendations and Next up to sink for standing Treatment Focus grooming, toilet transfers, shower?, dressing; brother to bring razor in Discharge Recommendations OT Discharge Recommendations Acute Rehab Home Equipment Needs to be determined in next rehab setting
--- NOTE | 2018-09-25 15:21 | ST.IPTN ---
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 He remembered me from yesterday and agreed to participate in therapy. Chief Complaint(s) Speech Objective Short Term Goals Brandon will improve articulatory proficiency and dysprosody and utilize compensatory strategies as needed to improve perceptual characteristics of his speech. Brandon will demonstrate the ability to adequately self- monitor swallowing skills and perform appropriate compensatory techniques including tongue sweep to successfully and safely consume the least restrictive diet. Treatment Activities Provided written and verbal education regarding dysarthria and strategies for improving communication. We also discussed his reduced eye contact and Brandon expressed this is related to new onset emotional lability. He teared up twice during our session and stated he feels embarrassed by his emotions and how easily he becomes emotional. In addition to this, he was observed to have difficulty thoroughly communicating ideas or telling stories, leaving details out or failing to effectively communicate complex ideas. The [place] Cognitive Assessment was administered to determine cognitive skills. He scored 30/30 indicating in tact cognitive function. No dysphagia treatment provided on this date. Assessment Patient Response to Treatment Good Rehab Potential Good Impairments Identified Dysarthria Pragmatic Language Progress Towards Goals Good Progress Assessment of Overall Progress Improving Assessment of Improvement Good progress with dysarthria. Brandon reports he has been able to practice using intonation during sentence reading which is part of the NIH stroke scale. He has also been encouraged by the fact that he can still use different accents and his stroke does not seems to have affected his cognition. His speech is 100% intelligible; however, as mentioned above, he does have some pragmatic language impairments including difficulty communicating complex ideas and poor eye contact. He would benefit from rehab in order to improve social language skills. Reviewed with Patient Goals Progress Being Made Patient/Caregiver Understanding Good Plan Therapy Recommendations Continue with Current Program
[2018-09-25] MEDS: ATORVASTATIN 20 MG TABLET 40 MG PO (22:09)
[2018-09-26] VITALS (10 sets, daily range): BP systolic 128–165; BP diastolic 77–99; PULSE 59–69; RESP 14–18; TEMP 36.5–36.8; O2SAT 95–98
--- NOTE | 2018-09-26 02:49 | PC.NURSE ---
Patient is alert and oriented. Still with left facial droop, slurred speech and left extremity weakness (upper and lower) with ataxia; NIH score is 7. Breath sounds CTA with RA sat of 98%. HRR and was SR on last telemetry reading. Denies nausea. BT present and is passing flatus. Denies dysuria, frequency or urgency; using urinal at bedside. Able to move self in bed. Denies pain. Fall risk score is high and bed alarm is activated.
[2018-09-26] MEDS: HEPARIN 5,000 UNIT/ML VIAL 5000 UNIT SUBCUT ×2 (08:07→21:01)
[2018-09-26] MEDS: ASPIRIN EC 81 MG TABLET PO (09:14)
--- NOTE | 2018-09-26 11:20 | PT.IPTN ---
Physical Therapy Treatment Note M2 PT-IP Current Condition Start: 09/24/18 15:09 Freq: NEEDED Status: Active Protocol: Document 09/25/18 09:47 RS (Rec: 09/25/18 09:53 RS [id number]) Physical Therapy Current Condition Current Condition Evaluation Date 09/25/18 Treatment Diagnosis R pontine ischemic infarct - impaired mobility Onset Date 09/24/18 Precautions Other Precautions high fall risk M3 PT-IP Subjective Start: 09/24/18 15:09 Freq: NEEDED Status: Active Protocol: Document 09/26/18 11:20 GGD (Rec: 09/26/18 12:38 GGD [id number]) Subjective Physical Therapy Visit Type Type Treatment Note Visit Start Time 10:55 Visit Stop Time 11:20 Number of DIRECTOR OF DONOR RELATIONS Visits 1 Physical Therapy Visit Comments Patient Comments Pt willing to work with therapy. M4 PT-IP Mobility and Gait Start: 09/24/18 15:09 Freq: NEEDED Status: Active Protocol: Document 09/26/18 11:20 GGD (Rec: 09/26/18 12:38 GGD [id number]) PT-Bed Mobility Assessment Supine to Sit Supine to Sit Standby Assistance Sit to Supine Sit to Supine Standby Assistance PT-Transfer Assessment Sit to and From Stand Sit to and from Stand Contact Guard Assistance Equipment Transfer Assistive Device Gait Belt Front Wheeled Walker Transfers Transfer Destination Bed Transfer Ability Level of Assist Minimal Assistance Gait Assessment Gait Gait Assistance Required: Minimum Assistance Distance (Feet) 100 Assistive Devices Assistive Device Gait Belt Front Wheeled Walker Gait Deviations General Gait Pattern Ataxic Decreased Feet Clearance Lateral Trunk Lean Narrow Based Gait Factors Limiting Gait Function Factors Limiting Gait Function Decreased Sensation Decreased Strength Incoordination Poor Balance Poor Safety Awareness Comments Gait Comments gait x 75 feet with FWW and then 25 feet with SPC decreas left feet clearance with gait wiht SPC. M5 PT-IP Objective Assessments Start: 09/24/18 15:09 Freq: NEEDED Status: Active Protocol: Document 09/25/18 09:47 RS (Rec: 09/25/18 10:34 RS [email or web address]) Orientation Orientation/Cognition Level of Alertness Alert Orientation Name Age Birthday Month Date Year Day of Week Place Situation Language Function Ability Expressive Aphasia Word Finding Difficulties Safety Awareness Decreased Safety Awareness Gross Range of Motion Upper Extremity ROM Assessment Left Impaired Impairments PROM relatively intact but AROM limited due to weakness. Lower Extremity ROM Assessment Within Functional Limits Strength Upper Extremity Strength Assessment Left Impaired Lower Extremity Strength Assessment Left Impaired Hip 3+/5 Knee 3+/5 Ankle 3+/5 Coordination Assessment Gross Coordination Gross Coordination Impaired Assessment Finger to Nose Test Moderate Impairment Pronation/Supination Test Moderate Impairment Foot Tapping Test Moderate Impairment Heel on Johnson Test Moderate Impairment Coordination Comments Some of the slowness and test deficits are related to weakness, but definitely impaired coordination on all tests Sensation Assessment Sensation Light Touch Impaired Comments Sensation Comments Pt denies sensation deficits but only 50-75% for light touch on L side. Muscle Tone Muscle Tone WNL No Muscle Tone Location Left Upper Extremity Type of Tone Hypotonicity Severity of Tone Mild M6 PT-IP Treatment Start: 09/24/18 15:09 Freq: NEEDED Status: Active Protocol: Document 09/26/18 11:20 GGD (Rec: 09/26/18 12:38 GGD [id number]) Physical Therapy Treatment Exercises Exercises Ankle Pumps Other Treatments Other Treatment Performed Standing balance, NBOS EO/EC, head turns. static marching x 15 each leg, marching while walking x 20 ft, side minisquats in front of chair x 10 M7 PT-IP Assessment and Plan Start: 09/24/18 15:09 Freq: NEEDED Status: Active Protocol: Document 09/26/18 11:20 GGD (Rec: 09/26/18 12:38 GGD [id number]) PT Summary Assessment and Plan Summary Assessment Summary Pt improving with mobility. He had increase in unsteadiness with gait with SPC VS FWW. He is progressing with functional mobility. Frequency of Treatment Frequency Of Treatment Twice a Day Treatment Plan Physical Therapy Treatment Plan Bed Mobility Training Transfer Training Gait Training Therapeutic Exercise Balance Retraining Post Op Education Discharge Planning Hot or Cold Pack Neuromuscular Re-ed Coordination Retraining Manual Therapy Other Recommendations and Next Treatment balance, coordination, pregait Focus w.out AD and walking without AD, stairs? Recommendations To Nursing Amount of Assist Needed 1 Person Assist Discharge Recommendations PT Discharge Recommendations Acute Rehab
--- NOTE | 2018-09-26 12:57 | PM.PN.1 ---
Subjective Date Patient Seen: 09/26/18 Time Patient Seen: 12:57 Interval history: Follow up on R CVA Patient seen at bedside. Patient is doing well, however continues to remain weak, with left upper extremity strength of 0/5, and left lower extremity strength of 3/5. Patient was evaluated by Physical therapy and Occupational therapy, who recommend acute inpatient rehab. Exam Vital Signs (past 8 hours): - 09/26/18 06:00 09/26/18 07:43 09/26/18 08:00 Temperature 97.9 F 98.0 F Pulse Rate 61 64 Respiratory Rate 18 14 Blood Pressure 140/77 140/90 Pulse Oximetry 95 96 97 09/26/18 11:26 Temperature 98.3 F Pulse Rate 65 Respiratory Rate 16 Blood Pressure 145/99 H Pulse Oximetry 97 Oxygen Delivery Method Room Air Oxygen Flow Rate 0 Narrative Exam Narrative: General: No acute distress, appears older than stated age, well-developed, well-nourished, appropriately interactive. HEENT: Normocephalic, atraumatic. Pupils equal, round, and reactive to light. Anicteric sclerae, moist conjunctivae, and no lid lag. Oropharynx free of erythema and cobble stoning with moist mucosa. Neck: Supple with full range of motion. No jugular venous distension. No bruits. No lymphadenopathy or thyromegaly. Cardiovascular: Regular rate and rhythm without murmurs, rubs, or gallops appreciated Pulmonary: Clear to auscultation bilaterally without crackles, wheezes, or rhonchi. Normal respiratory effort with no use of accessory muscles. Abdomen: Soft, bowel sounds present, nontender, nondistended. No hepatosplenomegaly or masses appreciated. Extremities: No clubbing, cyanosis, or edema. Skin: Normal temperature, turgor, and texture; no rash, ulcers, or subcutaneous nodules appreciated. 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 Right upper and lower extremity normal muscle strength 5/5. [id number] intact bilaterally. Psychiatric: Normal mood and affect. Alert and oriented to person, place, and time. Objective Labs Result Diagrams: 09/24/18 09:00 09/24/18 09:00 Assessment & Plan Assessment & Plan narrative: 62-year-old male with a past medical history significant for hypertension and probable obstructive sleep apnea not on CPAP who presented with left-sided weakness and facial droop and was found to have a acute right pontine CVA. 1. Acute right pontine CVA, present on admission. Active. -Patient presented with left-sided weakness, facial droop, and expressive aphasia with slight slurring of speech that is improving but slightly. -CT brain without contrast and CTA did not demonstrate any acute intracranial abnormalities. -MR stroke protocol demonstrated acute right pontine CVA. -Echocardiogram with bubble study pending. -PT/OT/ST evaluation: recommend acute inpatient rehab. -Continue aspirin 81 mg daily and atorvastatin 40 mg daily at bedtime. 2. Hypertension, chronic -BP stable slightly elevated -Will start patient on Lisinopril 5mg PO Daily to better optimize BP control 3. Hyperlipidemia, chronic -Stable -Continue atorvastatin 40 mg daily at bedtime as above. 4. Probable obstructive sleep apnea, chronic, present on admission. Stable. -Patient would benefit from sleep study and CPAP. Dispo: Acute Rehab facility Quality VTE Deep Vein Thrombosis/Pulmonary Embolism Present on Admission: No
--- NOTE | 2018-09-26 14:12 | ST.IPTN ---
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 Subjective Identification Type Name Observations/Patient Presentation Patient was lying in bed upon entrance to his room. He remembered me from yesterday and agreed to participate in therapy. Chief Complaint(s) Speech Objective Short Term Goals Brandon will improve articulatory proficiency and dysprosody and utilize compensatory strategies as needed to improve perceptual characteristics of his speech. - goal met Brandon will demonstrate the ability to adequately self- monitor swallowing skills and perform appropriate compensatory techniques including tongue sweep to successfully and safely consume the least restrictive diet. - goal met, excellent recall of strategies, performing tongue sweep as needed to check for pocketing New goal: Brandon will use appropriate eye contact in conversations without verbal cues. Treatment Activities Contrastive stress drills completed to target prosody. Discussed eye contact which patient reports he is working on. Moderate verbal cues for eye contact required during the session as patient often talked while looking down or at the wall ahead of him. Sequential and alternating motion rates have improved from yesterday. Patient read alliterative sentences aloud with out difficulty. Articulation was precise and prosody was appropriate. Reviewed dysphagia recommendations. Patient denies any difficulty and states he is completing recommended strategies including tongue sweep for pocketing which he recalled. He also reports his emotional lability is improved from yesterday. Excellent progress, participation and carry-over of recommendations. Assessment Patient Response to Treatment Excellent Rehab Potential Excellent Impairments Identified Pragmatic Language Progress Towards Goals Excellent Progress Assessment of Overall Progress Improving Assessment of Improvement Excellent progress. Goal added for eye contact. Left facial droop remains, but speech is 100% intelligible with precise articulation and no impairments in swallowing. Reviewed with Patient Goals Progress Being Made Patient/Caregiver Understanding Good Plan Therapy Recommendations Continue with Current Program
--- NOTE | 2018-09-26 14:18 | PC.NURSE ---
Pt remains A&OX3. Very pleasant & aware of Dx of stroke. 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 Pt conversive.
--- NOTE | 2018-09-26 14:20 | PT.IPTN ---
Current Diagnoses Cerebral infarction, unspecified (09/24/18) Physical Therapy Treatment Note M2 PT-IP Current Condition Start: 09/24/18 15:09 Freq: NEEDED Status: Active Protocol: Document 09/25/18 09:47 RS (Rec: 09/25/18 09:53 RS [email or web address]) Physical Therapy Current Condition Current Condition Evaluation Date 09/25/18 Treatment Diagnosis R pontine ischemic infarct - impaired mobility Onset Date 09/24/18 Precautions Other Precautions high fall risk M3 PT-IP Subjective Start: 09/24/18 15:09 Freq: NEEDED Status: Active Protocol: Document 09/26/18 16:20 GGD (Rec: 09/26/18 16:43 GGD [email or web address]) Subjective Physical Therapy Visit Type Type Treatment Note Visit Start Time 15:40 Visit Stop Time 16:20 Total Visit Minutes 40 Number of 3RD PRESSMAN Visits 2 Physical Therapy Visit Comments Patient Comments Pt up to toilet with student RN. M4 PT-IP Mobility and Gait Start: 09/24/18 15:09 Freq: NEEDED Status: Active Protocol: Document 09/26/18 16:20 GGD (Rec: 09/26/18 16:43 GGD [email or web address]) PT-Bed Mobility Assessment Sit to Supine Sit to Supine Standby Assistance Scooting Scooting to Edge of Bed Independent Scooting Up and Down in Bed Independent PT-Transfer Assessment Sit to and From Stand Sit to and from Stand Contact Guard Assistance Equipment Transfer Assistive Device Gait Belt Straight Cane Transfers Transfer Destination Bed Transfer Ability Level of Assist Minimal Assistance Gait Assessment Gait Gait Assistance Required: Minimum Assistance Distance (Feet) 100 Assistive Devices Assistive Device Gait Belt Straight Cane Gait Deviations General Gait Pattern Ataxic Decreased Feet Clearance Lateral Trunk Lean Narrow Based Gait Factors Limiting Gait Function Factors Limiting Gait Function Decreased Sensation Decreased Strength Incoordination Poor Balance Poor Safety Awareness Comments Gait Comments cues for gait pattern with SPC . Functional Assessments Functional Tests Timed Up and Go 27 M5 PT-IP Objective Assessments Start: 09/24/18 15:09 Freq: NEEDED Status: Active Protocol: Document 09/25/18 09:47 RS (Rec: 09/25/18 10:34 RS [email or web address]) Orientation Orientation/Cognition Level of Alertness Alert Orientation Name Age Birthday Month Date Year Day of Week Place Situation Language Function Ability Expressive Aphasia Word Finding Difficulties Safety Awareness Decreased Safety Awareness Gross Range of Motion Upper Extremity ROM Assessment Left Impaired Impairments PROM relatively intact but AROM limited due to weakness. Lower Extremity ROM Assessment Within Functional Limits Strength Upper Extremity Strength Assessment Left Impaired Lower Extremity Strength Assessment Left Impaired Hip 3+/5 Knee 3+/5 Ankle 3+/5 Coordination Assessment Gross Coordination Gross Coordination Impaired Assessment Finger to Nose Test Moderate Impairment Pronation/Supination Test Moderate Impairment Foot Tapping Test Moderate Impairment Heel on Johnson Test Moderate Impairment Coordination Comments Some of the slowness and test deficits are related to weakness, but definitely impaired coordination on all tests Sensation Assessment Sensation Light Touch Impaired Comments Sensation Comments Pt denies sensation deficits but only 50-75% for light touch on L side. Muscle Tone Muscle Tone WNL No Muscle Tone Location Left Upper Extremity Type of Tone Hypotonicity Severity of Tone Mild M6 PT-IP Treatment Start: 09/24/18 15:09 Freq: NEEDED Status: Active Protocol: Document 09/26/18 16:20 GGD (Rec: 09/26/18 16:43 GGD [email or web address]) Physical Therapy Treatment Other Treatments Other Treatment Performed Standing balance, NBOS EO/EC, head turns, tandem stance UE support for foot placement. static marching x 15 each leg, side minisquats in front of chair x 10 side step at ceballos rail 2 x 10 feet. M7 PT-IP Assessment and Plan Start: 09/24/18 15:09 Freq: NEEDED Status: Active Protocol: Document 09/26/18 16:20 GGD (Rec: 09/26/18 16:43 GGD [email or web address]) PT Summary Assessment and Plan Summary Assessment Summary Pt improved stability with gait with SPC. He had improved foot clearance and stability. He did fatigue with treatment and had left knee buckling at end of gait. He would benefit from IRF. Frequency of Treatment Frequency Of Treatment Twice a Day Treatment Plan Physical Therapy Treatment Plan Bed Mobility Training Transfer Training Gait Training Therapeutic Exercise Balance Retraining Post Op Education Discharge Planning Hot or Cold Pack Neuromuscular Re-ed Coordination Retraining Manual Therapy Other Recommendations and Next Treatment balance, coordination, pregait Focus w.out AD and walking without AD, stairs? Recommendations To Nursing Amount of Assist Needed 1 Person Assist Discharge Recommendations PT Discharge Recommendations Acute Rehab
--- NOTE | 2018-09-26 15:53 | CM.DPC ---
DCP: continued: Case received, EMR reviewed and noted that referrals had been sent in yesterday to [facility]: in acute physical rehab unit. A referral had also been given to [facility]. Met before Team Rounds with pt to introduce self and role and then met just now to update pt on status of rehab options and to obtain more clarity re his contacts and living situation. Pt is noted to appear markedly clearer in terms of his ability to converse. He confirms this: I seem to be getting some things back. The words still don't come out like my mind plans but I can understand what you are saying. My mouth muscles on L side see to be working a little better. The feel tighter. My hand (L) still is not working well. Pt confirms that his primary contact is his brother Gregory Keenan Walker: [phone]: lives in [place]. He does have a son, Jaiden, who lives in [place]. He clarifies that Karla Tamez, who lives 4 [address] aware, is his girlfriend to 1 and 1/2 years. They spend weekends together. He would not, he says, say that she is his Life Partner. (will update [facility] to update the demographic information). He says his brother Gregory has talked with him about the options to move into his home Have spoken today with [facility]. She states the information passed given to her from [facility] was very limited. She requests H+P, all therapy notes, last physician progress note and specifics of the family contacts and after rehab plan. 91 pages are now faxed. Pt's sister in law Cinthia: cell: [phone] just stopped by the office at [phone]: stated she was here to help her brother in law and her Gregory with his rehab plan. She and Gregory understand the great need for pt to get the rehab he needs and then the plan will be to take him to their home after the rehab stay. She asked if she could discuss the post rehab plan with someone at [facility] and gave her Leann's contact number. Of note: [facility] has authorized the stay through September 30.
--- NOTE | 2018-09-26 17:57 | PC.NURSE ---
Addendum entered by Carolin Daniels R.N. 09/26/18 22:24: NIH score-3 this shift. Telemetry in place with NSR (60), and NSR (72). Bed alarm on for safety. Original Note: Pt up with PT exercising in hallways. Changed bed to Leisa. Currently, A/O x3, pleasant and cooperative, working on puzzles at bedside. Using urinal indep at bedside. RAC and LAC both SL. 95% RA, LS clear. Hx HTN and hyperlipidemia, slightly seth @ 1600- 59, and HTN 155/95. Strength to right arm and hand increased today, NO drift to left leg this shift. Pt remains 1PA FWW in room. Bed alarm on.
--- NOTE | 2018-09-26 18:01 | OT.IP.TRT ---
Current Diagnoses Cerebral infarction, unspecified (09/24/18) Occupational Therapy Treatment Note M2 OT-IP Current Condition Start: 09/25/18 15:53 Freq: Status: Active Protocol: Document 09/25/18 15:06 PJM (Rec: 09/25/18 16:24 PJM [id number]) Occupational Therapy Current Condition Current Condition Evaluation Date 09/25/18 Treatment Diagnosis decreased LUE function, decreased indep in all self care,mobility s/p stroke Diagnosis Onset Date 09/24/18 Post Operative Precautions Other Precautions fall risk, Lhemiparesis, LUE neglect Weight Bearing Status Weight Bearing Status Weight Bear as Tolerated M3 OT- IP Subjective and Pain Start: 09/25/18 15:53 Freq: Status: Active Protocol: Document 09/26/18 17:48 [facility] (Rec: 09/26/18 18:01 [facility] [email or web address]) OT- Subjective Occupational Therapy Visit Type Type Treatment Note Visit Start Time 17:15 Visit Stop Time 17:40 Total Visit Minutes 25 Occupational Therapy Visit Comments Patient Comments Pt eating dinner in bed , but agreeable to get up to the recliner to eat. Pt asking whether he would get a different hospital bed to better accomodate his length, nursing notified and able to switch out hospital beds. automotive refinisher present for Ot treatment. OT Pain Assessment Pain When Pain Assessed At Rest Pain Present Pain Present Denied Pain M4 OT- IP ADL's Start: 09/25/18 15:53 Freq: Status: Active Protocol: Document 09/26/18 17:48 [facility] (Rec: 09/26/18 18:01 [facility] [email or web address]) OT [id number] General Evaluation Self-Feeding Ability Standby Assistance Areas Needing Assistance Cutting Food Opening Containers Comments OT Self-Feeding Comments At this time pt just able to use right hand to do self feeding, pt needing assist for set-up and to cut food up. At this time pt not able to use left hand to assist for self feeding or set-up. M5 OT- IP IADL's Start: 09/25/18 15:53 Freq: Status: Active Protocol: Document 09/25/18 15:06 PJM (Rec: 09/25/18 16:24 PJM [id number]) OT-Instrumental Activities of Daily Living Deficits IADL Deficits Identified Deficits Home Safety Awareness Awareness of Need for Assistance at Home Good Awareness Medication Management Medication Management Comments pt currently needs assist due to unilateral function and inability to manage containers Money Management Money Management Comments to be assessed Meal Preparation Meal Preparation Comments pt currently needs assist due to decreased mobility and non functional L hand Superintendent Overhead Distribution Superintendent Overhead Distribution Comments pt currently needs assist due to decreased mobility and non functional L hand Driving Driving Comments needs further assessment when mobility improves M6 OT- IP Functional Cognition Start: 09/25/18 15:53 Freq: Status: Active Protocol: Document 09/26/18 17:48 [facility] (Rec: 09/26/18 18:01 [facility] [email or web address]) Cognitive Factors Limiting Selfcare Function Cognitive Ability Level of Alertness Alert Patient Orientation Name Age Birthday Month Date Year Day of Week Place Situation Attention Span Ability Capable of Focused Attention Capable of Sustained Attention Ability to Follow Commands Able to Follow One Step Commands Safety Awareness Underestimates Need for Assistance Cognitive Comments Cognitive Assessment Comments Pt at times having difficulty to get his word out , otherwise able to states his needs. Pt needing vc to slow down rate for eating and to be sure to double check for pocketing on the left. M7 OT- IP Mobility and Balance Start: 09/25/18 15:53 Freq: Status: Active Protocol: Document 09/25/18 15:06 PJM (Rec: 09/25/18 16:24 PJ [email or web address]) OT- Bed Mobility Assessment Rolling Type of Rolling Roll to Right Level of Assistance Standby Assistance Supine to Sit Supine to Sit Assist Standby Assistance Sit to Supine Sit to Supine Assist Standby Assistance Scooting Scooting to Edge of Bed Contact Guard Assistance OT-Transfer Assessment Sit to and From Stand Sit to and from Stand Minimal Assistance 1 Person Assistance Devices Transfer Assistive Devices Gait Belt Front Wheeled Walker Comments Mobility Comments standing for lower body clothing management; needs assist for L hand placement and balance OT- Gait Assessment Comments Gait Ability Comments see P.T. notes OT- Balance Assessment Sitting Balance and Reactions Static Sitting Balance Ability Good Dynamic Sitting Balance Ability Fair Standing Balance and Reactions Static Standing Balance Ability Fair M8 OT- IP Objective Assessments Start: 09/25/18 15:53 Freq: Status: Active Protocol: Document 09/26/18 OT Gross Range of Motion Upper Extremity Range of Motion ROM Impairments RUE AROM WNL LUE AAROM WFL OT Strength Upper Extremity Strength Shoulder R 5/5 L 3-/5 flexion and abduction Elbow R 5/5 L 4-/5 flex/ext Forearm R 5/5 L 3+/5 pronation/ supination Wrist R 5/5 L 3+/5 wrist extension Hand R 5/5 L 2-/5 mass finger flex/ext, 2-/5 in thumb Hand Electronic Specialist Strength Hand Dominance Right Comments Strength Comments Signifcant LUE weakness noted throughout LUE; especially distally OT- Coordination Assessment Comments Coordination Comments RUE/hand WNL LUE has gross coordination deficits due to proximal weakness; L hand non functional as stabilizer due to weakness in fingers and lack of thumb movement. Able to work on gentle stretching of internal rotators for LUE. In addition able to do AAROM for left finger extension and initiate education for pt to do his own or with assist from right hand while having left arm propped on the pillow and on the armrest. OT-Muscle Tone Assessment Muscle Tone WNL No Muscle Tone Location Left Upper Extremity Type of Tone Hypertonicity Severity of Tone Mild Jah Grade Scale Grade 1 Comments Muscle Tone Comments Pt has trace of increased tone in elbow extensors with quick stretch. Pt has incompletely isolated shoulder and elbow movements against gravity. OT Sensation Assessment Comments Summary Comments RUE WNL LUE light touch/localization WNL throughout LUE/hand. Proprioception intact at all joints. Edema Edema Present Edema Comments Mild L hand edema noted M9 OT- IP Assessment and Plan Start: 09/25/18 15:53 Freq: Status: Active Protocol: Document 09/26/18 17:48 [facility] (Rec: 09/26/18 18:01 [facility] [email or web address]) OT Summary Assessment and Plan Potential Rehabilitation Potential Excellent Analytic Complexity at Evaluation Low Summary OT Impairments Range of Motion Strength Balance Coordination Functional Mobility Self-Feeding Grooming Dressing Toileting Bathing Toilet Transfers Shower Transfers Progress Towards Goals Progressing Toward Goals Assessment Summary Pt improving with left hand function, however not able to assist for FMS for any grooming or dressing needs at this time. Pt is very motivated and proactive for his recovery and would greatly benefit from Acute rehab. Goals Grooming Goal Standby Assistance Dressing Goal Minimal Assistance Toileting Goal Standby Assistance Bathing Goal Minimal Assistance Toilet Transfer Goal Standby Assistance Shower Transfer Goal Contact Guard Assistance Patient/Caregiver Education Goal Demonstrate Energy Conservation and Pacing OT-Other Goals Grooming to be done standing at sink with no loss of balance and utilizing unilateral straetegies. Pt able to do SROM and AAROm for left UE as appropriate after training by OT. Days to Meet Goals 7 Frequency of Treatment Frequency Of Treatment Once a Day Treatment Plan OT Treatment Plan ADL Training Functional Mobility Neuromuscular Re-education Patient/Family Education Discharge Planning Discharge Recommendations OT Discharge Recommendations Acute Rehab
[2018-09-26] MEDS: ATORVASTATIN 20 MG TABLET 40 MG PO (20:59)
[2018-09-26] MEDS: SODIUM CHLORIDE 0.9% FLUSH 10 ML IV (21:01)
--- NOTE | 2018-09-26 21:59 | PC.NURSE ---
Patient Alert and Showing Progress When this manager nursing assessed the patient, the patient's affected left side of his face demonstrated a slight droop in his facial expression. The patient also had diminished ROM in his left arm. The patient's left leg did not show drift when this manager nursing asked the patient to raise his legs. The patient is alert and is oriented x3. When this manager nursing observed OT and PT in the patient room each discipline expressed that that the patient had progressed since the day before and the patient state he felt he had improved. The patient stated, he had not had a bowel movement since Monday and does not feel any discomfort and is passing gas. When this manager nursing auscultated the patient's abdominal region, this manager nursing heard bowel tones in all four quadrants. This manager nursing discussed with the patient about the patient's obstructive sleep apnea and the need to follow up with a sleep study and the possibility of needing a CPAP to improve patient's obstructive sleep apnea, which may improve his health. The patient has been reminded to use call as he his fall risk. The bed is low, locked, alarmed, and call light is within patient's reach.
[2018-09-27] VITALS (9 sets, daily range): BP systolic 124–157; BP diastolic 71–92; PULSE 62–83; RESP 12–18; TEMP 36.4–37.1; O2SAT 95–98
--- NOTE | 2018-09-27 00:21 | PC.NURSE ---
Patient is alert and oriented. Speech is understandable but still has some slight slurring of words and left facial droop. Able to move left UE more but still weak with arm drift. Left LE strength seems to be equal to right and has no drift tonight. NIH score is 5. Breath sounds CTA with RA sat of 97%. HRR but has elevated BP of 157/91 which patient states is his normal. On telemetry and 0000 reading was SR w/prolonged QT. Denies nausea. BT present and abdomen is soft; passing flatus. Denies dysuria, frequency or urgency; using urinal at bedside. Able to turn himself. Reportedly gets out of bed with walker and 1 assist. Denies pain. Fall risk score is moderate; bed alarm is activated.
[2018-09-27 06:51] LABS: Add Manual Diff / Slide Review NO; Basophils Absolute Auto 100 /uL (0-100); Basophils Percent Auto 1.1 % (0-2); Eosinophils Absolute Auto 200 /uL (0-450); Eosinophils Percent Auto 2.3 % (2-4); Hematocrit 45.4 % (41-53); Hemoglobin 15.9 g/dL (13.5-17.5); Lymphocytes Absolute Auto 2100 /uL (1100-4500); Lymphocytes Percent Auto 30.4 % (25-40); Mean Corpuscular HGB Conc 35.1 % (30-36); Mean Corpuscular Hemoglobin 31.8 PG (26-34); Mean Corpuscular Volume 90.5 fL (80-100); Monocytes Absolute Auto 700 /uL (0-900); Monocytes Percent Auto 9.8 % (3-14); Neutrophils Absolute Auto 3900 /uL (1500-7000); Neutrophils Percent Auto 56.4 % (50-75); Platelet Count 226 X10^3/uL (150-400); Red Blood Cell Count 5.01 X10^6/uL (4.5-5.9); Red Cell Distribution Width 12.8 % (11.6-14.8); White Blood Cell Count 6.8 X10^3/uL (4.5-11.0)
[2018-09-27 06:56] LABS: BUN Creatinine Ratio 21.4 (6-22); Blood Urea Nitrogen 15 mg/dL (9-20); Calcium 9.4 mg/dL (8.4-10.2); Carbon Dioxide 24 mmol/L (22-32); Chloride 104 mmol/L (98-107); Estimated Glomerular Filt Rate > 60.0 mL/min (>60); Glucose 101 mg/dL (80-110); HEMOLYSIS < 15 (0-50); Potassium 3.7 mmol/L (3.4-5.1); Sodium 139 mmol/L (137-145)
[2018-09-27] MEDS: ASPIRIN EC 81 MG TABLET PO (08:31)
[2018-09-27] MEDS: HEPARIN 5,000 UNIT/ML VIAL 5000 UNIT SUBCUT ×2 (08:31→20:41)
[2018-09-27] MEDS: LISINOPRIL 5 MG TABLET PO (08:32)
[2018-09-27] MEDS: SODIUM CHLORIDE 0.9% FLUSH 10 ML IV ×2 (08:32→20:47)
--- NOTE | 2018-09-27 10:50 | PT.IPTN ---
Current Diagnoses Cerebral infarction, unspecified (09/24/18) Physical Therapy Treatment Note M2 PT-IP Current Condition Start: 09/24/18 15:09 Freq: NEEDED Status: Active Protocol: Document 09/25/18 09:47 RS (Rec: 09/25/18 09:53 RS [email or web address]) Physical Therapy Current Condition Current Condition Evaluation Date 09/25/18 Treatment Diagnosis R pontine ischemic infarct - impaired mobility Onset Date 09/24/18 Precautions Other Precautions high fall risk M3 PT-IP Subjective Start: 09/24/18 15:09 Freq: NEEDED Status: Active Protocol: Document 09/27/18 11:50 GGD (Rec: 09/27/18 12:36 GGD [email or web address]) Subjective Physical Therapy Visit Type Type Treatment Note Visit Start Time 11:10 Visit Stop Time 11:50 Total Visit Minutes 40 Number of METAL DRAWER Visits 3 Physical Therapy Visit Comments Patient Comments Pt ready to with therapy. M4 PT-IP Mobility and Gait Start: 09/24/18 15:09 Freq: NEEDED Status: Active Protocol: Document 09/27/18 11:50 GGD (Rec: 09/27/18 12:36 GGD [email or web address]) PT-Transfer Assessment Sit to and From Stand Sit to and from Stand Contact Guard Assistance Equipment Transfer Assistive Device Gait Belt Straight Cane Transfers Transfer Destination Chair Transfer Ability Level of Assist Minimal Assistance Gait Assessment Gait Gait Assistance Required: Contact Guard Assist Minimum Assistance Distance (Feet) 100 Assistive Devices Assistive Device Gait Belt Straight Cane Gait Deviations General Gait Pattern Ataxic Decreased Feet Clearance Lateral Trunk Lean Narrow Based Gait Factors Limiting Gait Function Factors Limiting Gait Function Decreased Sensation Decreased Strength Incoordination Poor Balance Poor Safety Awareness M5 PT-IP Objective Assessments Start: 09/24/18 15:09 Freq: NEEDED Status: Active Protocol: Document 09/25/18 09:47 RS (Rec: 09/25/18 10:34 RS [email or web address]) Orientation Orientation/Cognition Level of Alertness Alert Orientation Name Age Birthday Month Date Year Day of Week Place Situation Language Function Ability Expressive Aphasia Word Finding Difficulties Safety Awareness Decreased Safety Awareness Gross Range of Motion Upper Extremity ROM Assessment Left Impaired Impairments PROM relatively intact but AROM limited due to weakness. Lower Extremity ROM Assessment Within Functional Limits Strength Upper Extremity Strength Assessment Left Impaired Lower Extremity Strength Assessment Left Impaired Hip 3+/5 Knee 3+/5 Ankle 3+/5 Coordination Assessment Gross Coordination Gross Coordination Impaired Assessment Finger to Nose Test Moderate Impairment Pronation/Supination Test Moderate Impairment Foot Tapping Test Moderate Impairment Heel on Johnson Test Moderate Impairment Coordination Comments Some of the slowness and test deficits are related to weakness, but definitely impaired coordination on all tests Sensation Assessment Sensation Light Touch Impaired Comments Sensation Comments Pt denies sensation deficits but only 50-75% for light touch on L side. Muscle Tone Muscle Tone WNL No Muscle Tone Location Left Upper Extremity Type of Tone Hypotonicity Severity of Tone Mild M6 PT-IP Treatment Start: 09/24/18 15:09 Freq: NEEDED Status: Active Protocol: Document 09/27/18 11:50 GGD (Rec: 09/27/18 12:36 GGD [email or web address]) Physical Therapy Treatment Other Treatments Other Treatment Performed Standing balance, NBOS EO/EC, head turns, tandem stance, SLS , minisquats in front of chair reaching to pick cone up from floor, side step at ceballos rail 2 x 10 feet, forward and backwards marching at rail, heel toe gait at rail. gait with and without cane around cone and stepping over cone with SPC. M7 PT-IP Assessment and Plan Start: 09/24/18 15:09 Freq: NEEDED Status: Active Protocol: Document 09/27/18 11:50 GGD (Rec: 09/27/18 12:36 GGD [email or web address]) PT Summary Assessment and Plan Summary Assessment Summary Pt improving with mobility. He needed decrease in cue for gait. He had mild LOB with heigher level gait, but able to self correct. HE had less knee buckling. Frequency of Treatment Frequency Of Treatment Twice a Day Treatment Plan Other Recommendations and Next Treatment balance, coordination, pregait Focus w.out AD and walking without AD, stairs, LE strengthening. Recommendations To Nursing Amount of Assist Needed 1 Person Assist
--- NOTE | 2018-09-27 11:10 | OT.IP.TRT ---
Current Diagnoses Cerebral infarction, unspecified (09/24/18) Occupational Therapy Treatment Note M2 OT-IP Current Condition Start: 09/25/18 15:53 Freq: Status: Active Protocol: Document 09/25/18 15:06 PJM (Rec: 09/25/18 16:24 PJM [email or web address]) Occupational Therapy Current Condition Current Condition Evaluation Date 09/25/18 Treatment Diagnosis decreased LUE function, decreased indep in all self care,mobility s/p stroke Diagnosis Onset Date 09/24/18 Post Operative Precautions Other Precautions fall risk, L hemiparesis, LUE neglect Weight Bearing Status Weight Bearing Status Weight Bear as Tolerated M3 OT- IP Subjective and Pain Start: 09/25/18 15:53 Freq: Status: Active Protocol: Document 09/27/18 11:10 PJM (Rec: 09/27/18 16:13 PJM [email or web address]) OT- Subjective Occupational Therapy Visit Type Type Treatment Note Visit Start Time 10:28 Visit Stop Time 11:10 Total Visit Minutes 42 Notes Pt awake and alert in bed and ready for treatment. Occupational Therapy Visit Comments Patient Comments I can move my thumb now. Watch. Patient/Caregiver Goals to return to complete independence and be able to live alone in his own home OT Pain Assessment Pain When Pain Assessed After Treatment Pain Present Pain Present Pain Reported M4 OT- IP ADL's Start: 09/25/18 15:53 Freq: Status: Active Protocol: Document 09/27/18 11:10 PJM (Rec: 09/27/18 16:13 PJM NRTM) OT [id number] Comments OT Self-Feeding Comments worked on wiping mouth with napkin with L hand with jsut barely able to bring L hand to mouth OT ADL-Dressing General Eval Upper Body Dressing Ability Minimal Assistance Lower Body Dressing Ability Contact Guard Assistance Areas Needing Assistance Button-Up Shirt/Blouse Pants/Shorts Comments OT Dressing Comments Provided education re: unilateral hemiplegic dressing techniques. Pt demonstrating excellent persistence with unilateral fastening of small shirt buttons. Pt needs CGA for safety when standing to get elastic waist pants over hips. OT ADL-Bathing Comments OT Bathing Comments pt showered with [employer] earlier M6 OT- IP Functional Cognition Start: 09/25/18 15:53 Freq: Status: Active Protocol: Document 09/27/18 11:10 PJM (Rec: 09/27/18 16:13 PJM [id number]) Cognitive Factors Limiting Selfcare Function Cognitive Ability Level of Alertness Alert Patient Orientation Name Age Birthday Month Date Year Day of Week Place Situation Attention Span Ability Capable of Focused Attention Capable of Sustained Attention Ability to Follow Commands Able to Follow One Step Commands Able to Follow Multi-Step Commands Memory Description No Deficits Noted Safety Awareness No Deficits Noted Cognitive Comments Cognitive Assessment Comments Note that pt's affect brighter today and he is initiating much more conversation with improved articulation, faster pace of speech and wider vocabulary. OT- Vision and Hearing OT- Vision Assessment Vision Assessment Comments Pt demonstrating increased attention to L of midline and to LUE but still needs min cues. M7 OT- IP Mobility and Balance Start: 09/25/18 15:53 Freq: Status: Active Protocol: Document 09/27/18 11:10 PJM (Rec: 09/27/18 16:13 [facility] [email or web address]) OT- Bed Mobility Assessment Rolling Type of Rolling Roll to Right Level of Assistance Standby Assistance Head of Bed Elevated Supine to Sit Supine to Sit Assist Standby Assistance Head of Bed Elevated Scooting Scooting to Edge of Bed Standby Assistance OT-Transfer Assessment Sit to and From Stand Sit to and from Stand Contact Guard Assistance Transfers Transfer Ability Contact Guard Assistance Technique Transfer Destination Chair Transfer Technique Stand Step Pivot Devices Transfer Assistive Devices Gait Belt Front Wheeled Walker OT- Balance Assessment Sitting Balance and Reactions Static Sitting Balance Ability Good Dynamic Sitting Balance Ability Fair Standing Balance and Reactions Static Standing Balance Ability Good Dynamic Standing Balance Ability Fair Comments Other Balance Tests/Deviations/Treatment pt tends to lean to L during : dynamic sitting balance tasks such as lower body dressing EOB M8 OT- IP Objective Assessments Start: 09/25/18 15:53 Freq: Status: Active Protocol: Document 09/27/18 11:10 PJM (Rec: 09/27/18 16:13 [facility] [email or web address]) OT Gross Range of Motion Upper Extremity Range of Motion Assessment Left Impaired OT Strength Comments Strength Comments Worked on neuro re education with LUE to isolate shoulder and elbow motions in supine. Pt lacks co contraction with resulting decrease in proximal stability and gross coordination. Also worked on protraction, elbow flexion/ extension against gravity, pronation/supination, wrist extension and finger flex and extension. Pt now has 2-/5 strength in R thumb flex and extension but no active abd/ adduction. Pt can touch thumb to tip of index finger today but no functional pinch strength. Worked on mass grasp and release of very light 2 objects on table top. Educated pt re: tabletop arm exercises for shoulder and elbow. OT- Coordination Assessment Upper Extremity Finger to Nose Test Left UE Impaired Finger Tapping Test Left UE Impaired Comments Coordination Comments emerging mass grasp and release of very light 2 objects with L hand but pt still lacks proximal stability at shoulder OT-Muscle Tone Assessment Muscle Tone Location Left Upper Extremity Type of Tone Flexor Severity of Tone Mild Manifestation of Tone Ataxia M9 OT- IP Assessment and Plan Start: 09/25/18 15:53 Freq: Status: Active Protocol: Document 09/27/18 11:10 PJM (Rec: 09/27/18 16:13 PJM [email or web address]) OT Summary Assessment and Plan Potential Rehabilitation Potential Excellent Summary Progress Towards Goals Progressing Toward Goals Assessment Summary Pt making good daily progress with excellent participation and effort in all therapy tasks. He demonstrates improved functional mobility with FWW, increased independence in self care tasks and improving LUE/hand function. However, he is still far below his baseline level of function of complete independence living alone in his own home. Strongly recommend acute in pt rehab facility at d/c as p has excellent potential and is very motivated to regain independence. He can d/c to his brother and sister in law' s home after rehab stay. Goals Grooming Goal Standby Assistance Dressing Goal Minimal Assistance Toileting Goal Standby Assistance Bathing Goal Minimal Assistance Toilet Transfer Goal Standby Assistance Shower Transfer Goal Contact Guard Assistance Patient/Caregiver Education Goal Demonstrate Energy Conservation and Pacing OT-Other Goals Grooming to be done standing at sink with no loss of balance and utilizing unilateral strategies. Pt able to do SROM and AAROM for left UE as appropriate after training by OT. Days to Meet Goals 7 Frequency of Treatment Frequency Of Treatment Once a Day Treatment Plan OT Treatment Plan ADL Training Functional Mobility Neuromuscular Re-education Patient/Family Education Discharge Planning Discharge Recommendations OT Discharge Recommendations Acute Rehab Home Equipment Needs to be determined in next rehab setting
--- NOTE | 2018-09-27 14:06 | PM.PN.1 ---
Subjective Date Patient Seen: 09/27/18 Time Patient Seen: 14:06 Interval history: Follow up on R CVA Patient seen at bedside. Patient is doing well, with right upper extremity getting stronger. His plumbers and top helpers is getting better. Left lower extremity is much better since yesterday. He is improving overall with physical therapy. Per PT, it is recommended patient goes to acute inpatient rehab which he is amenable to. Exam Vital Signs (past 8 hours): - 09/27/18 07:00 09/27/18 07:26 09/27/18 12:20 Temperature 97.9 F 98.1 F Pulse Rate 65 83 Respiratory Rate 18 18 Blood Pressure 145/86 H 141/92 H Pulse Oximetry 97 96 95 Oxygen Delivery Method Room Air Oxygen Flow Rate 0 Narrative Exam Narrative: General: No acute distress, AAOx3 HEENT: Normocephalic, atraumatic. Pupils equal, round, and reactive to light. Moist mucosa. Neck: Supple. No lymphadenopathy or thyromegaly. Cardiovascular: Regular rate and rhythm without murmurs, rubs, or gallops appreciated Pulmonary: Clear to auscultation bilaterally without crackles, wheezes, or rhonchi. Abdomen: Soft, bowel sounds present, nontender, nondistended. No hepatosplenomegaly or masses appreciated. Extremities: No clubbing, cyanosis, or edema. Skin: Normal temperature, turgor, and texture; no rash, ulcers, or subcutaneous nodules appreciated. Neurological: Left-sided facial droop, left plumbers and top helpers weakness 0/5, LUE strength 3/5, LLE strength 4/5, expressive aphasia that's improving and slight slurring of speech. Right upper and lower extremity normal muscle strength 5/5. [id number] intact bilaterally. Psychiatric: Normal mood and affect. Alert and oriented to person, place, and time. Objective Labs Result Diagrams: 09/27/18 06:25 09/27/18 06:25 Labs: Laboratory Results - last 24 hr 09/27/18 09/27/18 06:25 06:25 WBC 6.8 RBC 5.01 Hgb 15.9 Hct 45.4 MCV 90.5 MCH 31.8 MCHC 35.1 RDW 12.8 Plt Count 226 Neut % (Auto) 56.4 Lymph % (Auto) 30.4 [place] % (Auto) 9.8 Eos % (Auto) 2.3 Baso % (Auto) 1.1 Neut # (Auto) 3900 Lymph # (Auto) 2100 [place] # (Auto) 700 Eos # (Auto) 200 Baso # (Auto) 100 Sodium 139 Potassium 3.7 Chloride 104 Carbon Dioxide 24 BUN 15 Creatinine 0.70 Estimated GFR > 60.0 BUN/Creatinine Ratio 21.4 Glucose 101 Calcium 9.4 Assessment & Plan Assessment & Plan narrative: 62-year-old male with a past medical history significant for hypertension and probable obstructive sleep apnea not on CPAP who presented with left-sided weakness and facial droop and was found to have a acute right pontine CVA. 1. Acute right pontine CVA, present on admission. Active. -Patient presented with left-sided weakness, facial droop, and expressive aphasia with slight slurring of speech that is improving but slightly. -CT brain without contrast and CTA did not demonstrate any acute intracranial abnormalities. -MR stroke protocol demonstrated acute right pontine CVA. -Echocardiogram revelaed EF 50% with trace mitral regurgitation. No interatrial shunting. -PT/OT/ST evaluation: recommend acute inpatient rehab. -Continue aspirin 81 mg daily and atorvastatin 40 mg daily at bedtime. 2. Hypertension, chronic -BP stable slightly elevated -Increase Lisinopril to 10mg PO Daily to better optimize BP control 3. Hyperlipidemia, chronic -Stable -Continue atorvastatin 40 mg daily at bedtime as above. 4. Probable obstructive sleep apnea, chronic, present on admission. Stable. -Patient would benefit from sleep study and CPAP. Dispo: Acute Inpatient Rehab facility Quality VTE Deep Vein Thrombosis/Pulmonary Embolism Present on Admission: No
--- NOTE | 2018-09-27 14:51 | CM.DPC ---
DCP: continued. Have spoken with [facility] today. She confirms now that their team continues to see pt as an excellent rehab candidate and she has continued with the process of obtaining [employer] authorization for same. She is hopeful she will receive an answer by tomorrow as the insurance company will not be available over the weekend. Their team does continue to accept admission over the weekend if all is in place for same. Have updated Dr. Urban. PT/OT/[employer] continue to work with pt here. Have spoken now with pt and FELICITA Vicente, at bedside. Pt notes he continues to see daily improvement and is very encouraged by his progress. Both report that Leann did call earlier when pt's brother Gregory was in the room with them and she also updated them on the progress. Did put a call into the [facility] RN Sabrina Cantu [phone] ex [phone] just to alert her to this plan and in attempt to move the plan forwards. She stated her appreciation for this. She stated she was unaware of much of this as the next request for clinical from the UR team is not due until 10/01. She looked to see if the full authorization process for the INPT rehab had been received and confirmed same. P: INPT rehab when accepted for same. In meantime pt will continue to receive care at the in hospital level (and [employer] has approved same through 09/30 with d/c or update expected on Sunday 10/01.)
--- NOTE | 2018-09-27 16:14 | PT.IPTN ---
Current Diagnoses Cerebral infarction, unspecified (09/24/18) Physical Therapy Treatment Note M2 PT-IP Current Condition Start: 09/24/18 15:09 Freq: NEEDED Status: Active Protocol: Document 09/25/18 09:47 RS (Rec: 09/25/18 09:53 RS [email or web address]) Physical Therapy Current Condition Current Condition Evaluation Date 09/25/18 Treatment Diagnosis R pontine ischemic infarct - impaired mobility Onset Date 09/24/18 Precautions Other Precautions high fall risk M3 PT-IP Subjective Start: 09/24/18 15:09 Freq: NEEDED Status: Active Protocol: Document 09/27/18 16:05 GGD (Rec: 09/27/18 16:13 GGD [email or web address]) Subjective Physical Therapy Visit Type Type Treatment Note Visit Start Time 15:15 Visit Stop Time 16:00 Total Visit Minutes 45 Number of TOUR BUS DRIVER Visits 4 Physical Therapy Visit Comments Patient Comments Pt report calf was tight. M4 PT-IP Mobility and Gait Start: 09/24/18 15:09 Freq: NEEDED Status: Active Protocol: Document 09/27/18 16:05 GGD (Rec: 09/27/18 16:13 GGD [email or web address]) PT-Bed Mobility Assessment Supine to Sit Supine to Sit Independent Scooting Scooting to Edge of Bed Independent Scooting Up and Down in Bed Independent PT-Transfer Assessment Sit to and From Stand Sit to and from Stand Contact Guard Assistance Equipment Transfer Assistive Device Gait Belt Straight Cane Transfers Transfer Destination Chair Transfer Ability Level of Assist Contact Guard Assistance Comments Mobility Comments Pt BP after tryment 125/105 HR 99, after 5 minutes of rest in sitting 123/91 HR 91 Gait Assessment Gait Gait Assistance Required: Contact Guard Assist Distance (Feet) 220 Assistive Devices Assistive Device Gait Belt Straight Cane Gait Deviations General Gait Pattern Ataxic Decreased Feet Clearance Lateral Trunk Lean Narrow Based Gait Factors Limiting Gait Function Factors Limiting Gait Function Decreased Sensation Decreased Strength Incoordination Poor Balance Poor Safety Awareness M5 PT-IP Objective Assessments Start: 09/24/18 15:09 Freq: NEEDED Status: Active Protocol: Document 09/25/18 09:47 RS (Rec: 09/25/18 10:34 RS [email or web address]) Orientation Orientation/Cognition Level of Alertness Alert Orientation Name Age Birthday Month Date Year Day of Week Place Situation Language Function Ability Expressive Aphasia Word Finding Difficulties Safety Awareness Decreased Safety Awareness Gross Range of Motion Upper Extremity ROM Assessment Left Impaired Impairments PROM relatively intact but AROM limited due to weakness. Lower Extremity ROM Assessment Within Functional Limits Strength Upper Extremity Strength Assessment Left Impaired Lower Extremity Strength Assessment Left Impaired Hip 3+/5 Knee 3+/5 Ankle 3+/5 Coordination Assessment Gross Coordination Gross Coordination Impaired Assessment Finger to Nose Test Moderate Impairment Pronation/Supination Test Moderate Impairment Foot Tapping Test Moderate Impairment Heel on Johnson Test Moderate Impairment Coordination Comments Some of the slowness and test deficits are related to weakness, but definitely impaired coordination on all tests Sensation Assessment Sensation Light Touch Impaired Comments Sensation Comments Pt denies sensation deficits but only 50-75% for light touch on L side. Muscle Tone Muscle Tone WNL No Muscle Tone Location Left Upper Extremity Type of Tone Hypotonicity Severity of Tone Mild M6 PT-IP Treatment Start: 09/24/18 15:09 Freq: NEEDED Status: Active Protocol: Document 09/27/18 16:05 GGD (Rec: 09/27/18 16:13 GGD [email or web address]) Physical Therapy Treatment Exercises Exercises Straight Leg Raises Seated Knee Flexion/Extension Other Treatments Other Treatment Performed Standing balance tandem stance , SLS, standing hip extension , standing heel raises, reaching to pick cone up from floor, side step at ceballos rail 2 x 10 feet, forward and backwards at rail, heel toe gait at rail left UE support on rail. gait with and without cane around cone and stepping over cone with SPC, thera band hip abduction, Knee extension and ankle planter flexion in sitting, step up x 10 on to step. M7 PT-IP Assessment and Plan Start: 09/24/18 15:09 Freq: NEEDED Status: Active Protocol: Document 09/27/18 16:05 GGD (Rec: 09/27/18 16:13 GGD [email or web address]) PT Summary Assessment and Plan Summary Assessment Summary Pt improving with mobility. He increase stability with gait. He improving with step length and foot clearance with SPC. He does have unsteadiness with gait without assistive device . He needs CGA for picking up cones from floor. He able to stand 3 sec with left SLS. Pt would benefit from IRF. Frequency of Treatment Frequency Of Treatment Twice a Day Treatment Plan Physical Therapy Treatment Plan Bed Mobility Training Transfer Training Gait Training Therapeutic Exercise Balance Retraining Post Op Education Discharge Planning Hot or Cold Pack Neuromuscular Re-ed Coordination Retraining Manual Therapy Other Recommendations and Next Treatment balance, coordination, pregait Focus w.out AD and walking without AD, stairs, LE strengthening. Recommendations To Nursing Amount of Assist Needed 1 Person Assist
[2018-09-27] MEDS: MAGNESIUM HYDROXIDE 30 ML UDC PO (16:30)
--- NOTE | 2018-09-27 16:33 | ST.IPTN ---
Care Team Visit Care Team Role Provider Type Cyn Sutton DO Emergency Provider Physician Address: [address] [place] [address], [id number] Yenifer Byrd DO Admit Provider Physician Attending Provider Address: [address] [facility], [id number] SUPERINTENDENT GAS DISTRIBUTION Treatment Note SUPERINTENDENT G[employer] DISTRIBUTION Treatment Note Start: 09/24/18 16:14 Freq: Status: Active Protocol: Document 09/27/18 16:26 LNK (Rec: 09/27/18 16:33 LNK [id number]) Speech Pathology Treatment Note Session Time Visit Start Time 11:00 Visit Stop Time 11:30 Total Visit Minutes 30 Setting Treatment Setting Acute Care Visit Type Note Type Treatment Note Next Note Type Next Note Type Treatment Note General Information General Information Patient in with 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 Subjective Identification Type Name Observations/Patient Presentation pt was sitting in bedside chair He remembered that he has seen one of my cohorts for therapy Chief Complaint(s) Speech Objective Short Term Goals Brandon will improve articulatory proficiency and dysprosody and utilize compensatory strategies as needed to improve perceptual characteristics of his speech. - goal met Brandon will demonstrate the ability to adequately self- monitor swallowing skills and perform appropriate compensatory techniques including tongue sweep to successfully and safely consume the least restrictive diet. - goal met, excellent recall of strategies, performing tongue sweep as needed to check for pocketing New goal: Brandon will use appropriate eye contact in conversations without verbal cues. Treatment Activities Left facial droop remains. Contrastive stress drills completed to target prosody. Discussed eye contact which patient reports he is working on. Again, moderate verbal cues for eye contact required during the session as patient often talked while looking down or at the wall or out the window in the room. Patient's articulation was precise and prosody was appropriate. Patient denies any difficulty eating or drinking. He reported his emotional lability continues to improved. Excellent progress, participation and carry-over of recommendations. Assessment Patient Response to Treatment Excellent Rehab Potential Excellent Impairments Identified Pragmatic Language Progress Towards Goals Excellent Progress Assessment of Overall Progress Improving Assessment of Improvement Speech is 100% intelligible with precise articulation and no observable slurring of speech. Reviewed with Patient Goals Progress Being Made Patient/Caregiver Understanding Good Plan Therapy Recommendations Continue with Current Program
[2018-09-27] MEDS: ATORVASTATIN 20 MG TABLET 40 MG PO (20:40)
--- NOTE | 2018-09-27 21:40 | PC.NURSE ---
Evening Shift Summary-Client Technologies Analyst The patient is alert and oriented. When this nursing department chairperson performed the NIH assessment the patient scored 3. The patient has slight left side facial droop and his left arm drifts down. Following PT patient described a dull aching pain of 3 behind his eyes, after lying down and resting his pain went down to 1.5. The patient also described the pain after attempting to have a BM. Patient has not had a BM since Monday 11/20 prior to admission. The patient is passing flatus with BT present. Patient denies nausea. The patient received milk of magnesia. Patient's bed is low, locked, alarmed, with call within reach. Patient has been reminded to use call light for assistance when out of bed.
[2018-09-28] VITALS (13 sets, daily range): BP systolic 106–156; BP diastolic 54–101; PULSE 66–85; RESP 12–20; TEMP 36.4–37.7; O2SAT 93–98
[2018-09-28 06:45] LABS: Add Manual Diff / Slide Review NO; Basophils Absolute Auto 0 /uL (0-100); Basophils Percent Auto 0.5 % (0-2); Eosinophils Absolute Auto 100 /uL (0-450); Eosinophils Percent Auto 1.2 % (2-4); Hematocrit 45.4 % (41-53); Hemoglobin 15.7 g/dL (13.5-17.5); Lymphocytes Absolute Auto 1400 /uL (1100-4500); Lymphocytes Percent Auto 16.7 % (25-40); Mean Corpuscular HGB Conc 34.7 % (30-36); Mean Corpuscular Hemoglobin 31.7 PG (26-34); Mean Corpuscular Volume 91.5 fL (80-100); Monocytes Absolute Auto 900 /uL (0-900); Monocytes Percent Auto 10.7 % (3-14); Neutrophils Absolute Auto 5900 /uL (1500-7000); Neutrophils Percent Auto 70.9 % (50-75); Platelet Count 228 X10^3/uL (150-400); Red Blood Cell Count 4.96 X10^6/uL (4.5-5.9); Red Cell Distribution Width 12.5 % (11.6-14.8); White Blood Cell Count 8.4 X10^3/uL (4.5-11.0)
[2018-09-28 06:53] LABS: BUN Creatinine Ratio 22.5 (6-22); Blood Urea Nitrogen 18 mg/dL (9-20); Calcium 9.3 mg/dL (8.4-10.2); Carbon Dioxide 24 mmol/L (22-32); Chloride 103 mmol/L (98-107); Estimated Glomerular Filt Rate > 60.0 mL/min (>60); Glucose 111 mg/dL (80-110); HEMOLYSIS < 15 (0-50); Potassium 3.8 mmol/L (3.4-5.1); Sodium 137 mmol/L (137-145)
[2018-09-28] MEDS: SODIUM CHLORIDE 0.9% FLUSH 10 ML IV (09:02)
[2018-09-28] MEDS: HEPARIN 5,000 UNIT/ML VIAL 5000 UNIT SUBCUT ×2 (09:02→21:08)
[2018-09-28] MEDS: ASPIRIN EC 81 MG TABLET PO (09:04)
[2018-09-28] MEDS: MAGNESIUM HYDROXIDE 30 ML UDC PO ×2 (09:04→21:08)
[2018-09-28] MEDS: LISINOPRIL 5 MG TABLET 10 MG PO (09:04)
--- NOTE | 2018-09-28 10:11 | ST.IPTN ---
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 Subjective Observations/Patient Presentation Patient was seen sitting up in chair in room. His brother was present. Chief Complaint(s) Speech Objective Short Term Goals Brandon will use appropriate eye contact in conversations without verbal cues. - ongoing Brandon will perform deductive reasoning tasks with out assistance with 80% accuracy. Treatment Activities Targeted high level cognitive function through deductive reasoning puzzle. Originally, asked patient to complete puzzle in the presence of distractions (door open, conversation in room with patient's brother); however, he was unable to filter out distractions and focus on the puzzle. Task was modified to an easier level by eliminating distractions. Min verbal cues were provided to assist the patient in completing the puzzle. He admitted even easy level [employer] puzzles have been more challenging than usual for him. Provided patient with 3 more deductive reasoning puzzles to complete on his own . Discussed eye contact which his brother described as a result of being self-conscious of his impairments. Patient agreed. Assessment Patient Response to Treatment Good Rehab Potential Excellent Impairments Identified Cognitive-Linguistic Skills Pragmatic Language Progress Towards Goals Excellent Progress Assessment of Overall Progress Improving Assessment of Improvement Despite score of 30/30 on the MOCA, patient has mild impairments affecting higher level cognitive functions. A complete standardized cognitive assessment is recommended upon d/c. Reviewed with Patient Goals Progress Being Made Patient/Caregiver Understanding Good Plan Therapy Recommendations Continue with Current Program
--- NOTE | 2018-09-28 10:50 | CM.DPC ---
Addendum entered by Renu Meade LPN 09/28/18 16:38: Just received a call from Leann stating that [facility] now is requesting last 48 hours of therapy notes. These are now faxed and including today's progress notes. DCP team continue to follow: admission cell for [facility] liaison over weekend will continue to be: [phone]. Original Note: DCP: continued: Spoke this morning 0800 with [facility] just to check in. She confirmed again that [facility] coleman is only piece holding up the admission process and that they have some open beds today. She stated she would check in with [facility] to see where the auth process stood. She later called back during Team Rounds and requested last physician progress note. Dr. Urban added an addendum to same and this was then faxed as requested. Will continue to follow..
--- NOTE | 2018-09-28 10:54 | PC.NURSE ---
Addendum entered by Peggy Clark R.N. 09/28/18 15:34: pt has not voided this shift. Bladder scan performed at 1500 by YARROW GATHERER. Reported 275mls. Pt denies urge to void, Evening RN aware. Enc po fluid intake. And now IVF infusing. Original Note: Addendum entered by Peggy Clark R.N. 09/28/18 14:06: DI RN in to see pt at 1400. BP recheck as pt sitting in bed with BLE slightly elevated. At 1440 BP 127/54 p-81. Updated Dr. Urban, new plan to Discontinue NS 500ml bolus and pt to now have NS at 80ml/hr for 1 litre. Plan for PT to perform bed exercises today and OOB therapy tomorrow. Original Note: Addendum entered by Peggy Clark R.N. 09/28/18 13:53: Delay in NS Bolus due to unable to obtain PIV. 3 RN's assessed for IV placement, the 4th RN attempted placement to left hand without success. RN coordinator called DI Nurse to place IV. Original Note: Addendum entered by Peggy Clark R.N. 09/28/18 13:29: Pt up out of chair with PT, at 1122 standing BP 81/48 P-62, PT reported assisted pt back to chair with legs elevated at 1126BP 120/68 P-56. When PT placed legs into a dangle position while pt in chair, at 1140 BP 94/72 P-48. Recheck again at 1145, BP 106/61 P-66, O2 sat 96% on RA. Pt overall was feeling weak, faint, light-headed. Pt assisted back to bed by PT in supine position with BLE elevated using bed function. During therapy session, pt also complained of behind left knee, deep ache. Calf non-tender, no redness or swelling. Spoke with Dr. Urban at bedside around 1150, [place] 5/325 1 tab X1 ordered and NS 500ml bolus to infuse over 2 hours and recheck BP/P 1 hour after infusion complete. Original Note: Day Shift- NIH score 6, Pt denies chest pain/discomfort, difficulty breathing. States has 1.5/10 aching to behind bilateral eyes. Pt OOB sitting in chair with chair alarm on, 1PA. Tolerated 50% of breakfast without difficulty, takes pills whole with water. Does have slight expressive aphasia with left side facial droop. Left arm drifts down but not to chair arms. Left leg also drifts down but not to foot rest, able to perform left leg bend from ankle to mid leg to below knee with a staggered motion, not smooth. Pt has not had BM since 09/24, prn MOM given, pt denies abd pain, bloating, is passing flatus. High fall risk precautions in place, pt's brother in room for update as well.
--- NOTE | 2018-09-28 11:05 | OT.IP.TRT ---
Current Diagnoses Cerebral infarction, unspecified (09/24/18) Occupational Therapy Treatment Note M2 OT-IP Current Condition Start: 09/25/18 15:53 Freq: Status: Active Protocol: Document 09/25/18 15:06 PJM (Rec: 09/25/18 16:24 PJM [id number]) Occupational Therapy Current Condition Current Condition Evaluation Date 09/25/18 Treatment Diagnosis decreased LUE function, decreased indep in all self care,mobility s/p stroke Diagnosis Onset Date 09/24/18 Post Operative Precautions Other Precautions fall risk, L hemiparesis, LUE neglect Weight Bearing Status Weight Bearing Status Weight Bear as Tolerated M3 OT- IP Subjective and Pain Start: 09/25/18 15:53 Freq: Status: Active Protocol: Document 09/28/18 11:05 PJM (Rec: 09/28/18 11:50 PJM [id number]) OT- Subjective Occupational Therapy Visit Type Type Treatment Note Visit Start Time 10:10 Visit Stop Time 11:05 Total Visit Minutes 55 Notes Pt awake and alert in chair working on speech therapy homework. Occupational Therapy Visit Comments Patient Comments I can move my thumb even more today. Look. Patient/Caregiver Goals to go to rehab today OT Pain Assessment Pain When Pain Assessed After Treatment Pain Present Pain Present Pain Reported Location Left Calf Intensity 3 Scale Used pt reports hx of plantar fasciitis Description Aching Acute M4 OT- IP ADL's Start: 09/25/18 15:53 Freq: Status: Active Protocol: Document 09/28/18 11:05 PJM (Rec: 09/28/18 11:50 PJM [id number]) OT ADL-Grooming General Evaluation Grooming Ability Standby Assistance Areas Needing Assistance Shaving Comments OT Grooming Comments standing at sink with FWW. Verbal cues to attend to LUE. Min assist with weight bearing through L hand on sink. OT ADL-Oral Care General Eval Oral Care Ability Standby Assistance Devices Oral Care Devices Toothbrush Comments Oral Care Comments standing at sink with FWW. OT ADL-Dressing General Eval Upper Body Dressing Ability Minimal Assistance Lower Body Dressing Ability Standby Assistance Areas Needing Assistance Pull-Over Shirt Button-Up Shirt/Blouse Socks Shoes Comments OT Dressing Comments Pt removed front button shirt by pulling it over head with min- assist and mod verbal cues. Pt donned clean shirt like pullover with min assist and mod cues to get RUE in. Pt doffed B socks with SBA and donned pull on both Keen sandals with effort and extra time but SBA only. M5 OT- IP IADL's Start: 09/25/18 15:53 Freq: Status: Active Protocol: Document 09/25/18 15:06 PJM (Rec: 09/25/18 16:24 PJ [id number]) OT-Instrumental Activities of Daily Living Deficits IADL Deficits Identified Deficits Home Safety Awareness Awareness of Need for Assistance at Home Good Awareness Medication Management Medication Management Comments pt currently needs assist due to unilateral function and inability to manage containers Money Management Money Management Comments to be assessed Meal Preparation Meal Preparation Comments pt currently needs assist due to decreased mobility and non functional L hand Forestry Farm Laborer Forestry Farm Laborer Comments pt currently needs assist due to decreased mobility and non functional L hand Driving Driving Comments needs further assessment when mobility improves M6 OT- IP Functional Cognition Start: 09/25/18 15:53 Freq: Status: Active Protocol: Document 09/28/18 11:05 PJM (Rec: 09/28/18 11:50 [facility] [id number]) Cognitive Factors Limiting Selfcare Function Cognitive Ability Level of Alertness Alert Patient Orientation Name Age Birthday Month Date Year Day of Week Place Situation Attention Span Ability Capable of Focused Attention Capable of Sustained Attention Ability to Follow Commands Able to Follow One Step Commands Able to Follow Multi-Step Commands Memory Description No Deficits Noted Safety Awareness Underestimates Need for Assistance Cognitive Comments Cognitive Assessment Comments Pt feels his reasoning skills are decreased compared to prior level of function when doing his usual [employer] puzzles. Pt initiating completion of Speech Therapy assignments. Pt able to problem solve several unilateral self care techniques independently. He is anxious to walk independently but agreed to continue to call for assist due to fall risk and painful L calf today which affects stability when he first gets up to walk. OT- Vision and Hearing OT- Vision Assessment Vision Assessment Comments Some mild LUE neglect noted when pt standing at sink for grooming. M7 OT- IP Mobility and Balance Start: 09/25/18 15:53 Freq: Status: Active Protocol: Document 09/28/18 11:05 PJM (Rec: 09/28/18 11:50 [facility] [id number]) OT-Transfer Assessment Sit to and From Stand Sit to and from Stand Contact Guard Assistance Transfers Transfer Ability Contact Guard Assistance Technique Transfer Destination Chair Transfer Technique Stand Step Pivot Devices Transfer Assistive Devices Gait Belt Front Wheeled Walker Comments Mobility Comments Pt reports L calf painful today after yesterday's workout and is reluctant to get L heel down when standing. He needs verbal and tactile cues to fully extend L knee when standing at the sink. Pt reports hx of severe B plantar fasciitis and has had LLE surgery for this including gastrocnemius release. Pt familiar with stretching exercises and had theraband in room which he can use for stretching once tied into loop. OT- Gait Assessment Gait Gait Assistance Required: Contact Guard Assist Distance (Feet) 20 Assistive Devices Assistive Device Gait Belt Front Wheeled Walker Comments Gait Ability Comments Pt needs close CGA and mod+ cues for gait sequence with FWW. Narrow base of support noted and pt needs encouragement to get L heel down. OT- Balance Assessment Sitting Balance and Reactions Static Sitting Balance Ability Good Dynamic Sitting Balance Ability Fair Standing Balance and Reactions Static Standing Balance Ability Good Dynamic Standing Balance Ability Fair M8 OT- IP Objective Assessments Start: 09/25/18 15:53 Freq: Status: Active Protocol: Document 09/28/18 11:05 PJ (Rec: 09/28/18 11:50 [facility] [id number]) OT Gross Range of Motion Upper Extremity Range of Motion Assessment Left Impaired ROM Impairments Educated pt re: self ROM exercises for L shoulder/elbow in chair x5. He completes them with min cues for technique. OT Strength Upper Extremity Strength Shoulder L 3-/5 flex Elbow L 4-/5 flex, 4-/5 ext Forearm 3-/5 pronation/supination Wrist 3-/5 extension Hand 3/5 mass finger flex, 2-/5 finger ext w/4th finger lag, thumb 2-/5 flex/ext Hand Firefighting Equipment Specialist Strength Hand Dominance Right OT- Coordination Assessment Comments Coordination Comments pt can now touch thumb to index and middle finger but does not have sufficient strength for functional pinch. worked on mass grasp/release of cones and 1 blocks into target cup with min assist OT-Muscle Tone Assessment Muscle Tone Location Left Upper Extremity Type of Tone Flexor Severity of Tone Mild Comments Muscle Tone Comments mild flexion synergy noted with incompletely isolated shoulder and elbow movements M9 OT- IP Assessment and Plan Start: 09/25/18 15:53 Freq: Status: Active Protocol: Document 09/28/18 11:05 PJM (Rec: 09/28/18 11:50 [facility] [id number]) OT Summary Assessment and Plan Potential Rehabilitation Potential Excellent Summary OT Impairments Strength Balance Coordination Tone Functional Mobility Grooming Dressing Toileting Bathing Toilet Transfers Shower Transfers Progress Towards Goals Progressing Toward Goals Assessment Summary Pt's functional mobility mildly slowed by mild calf pain today which may be a flair of his plantar fasciitis. Pt familiar with stretching techniques. Pt continues to make daily improvement in self care skills and has increased active thumb movement today. Pt is pleasant, cooperative and very motivated to improve. He initiates follow through on suggested therapy activities that he can do in his room. He is an excellent candidate for intensive acute in pt rehab services. Goals updated. Goals Grooming Goal Independent Dressing Goal Standby Assistance Toileting Goal Independent Bathing Goal Standby Assistance Toilet Transfer Goal Standby Assistance Shower Transfer Goal Standby Assistance Patient/Caregiver Education Goal Demonstrate Energy Conservation and Pacing OT-Other Goals Grooming to be done standing at sink with no loss of balance and utilizing unilateral strategies. Pt able to do SROM and AAROM for left UE as appropriate after training by OT. Days to Meet Goals 7 Frequency of Treatment Frequency Of Treatment Once a Day Treatment Plan OT Treatment Plan ADL Training Functional Mobility Neuromuscular Re-education Patient/Family Education Discharge Planning Discharge Recommendations OT Discharge Recommendations Acute Rehab Home Equipment Needs to be determined in next rehab setting
--- NOTE | 2018-09-28 12:00 | PT.IPTN ---
Current Diagnoses Cerebral infarction, unspecified (09/24/18) Physical Therapy Treatment Note M2 PT-IP Current Condition Start: 09/24/18 15:09 Freq: NEEDED Status: Active Protocol: Document 09/25/18 09:47 RS (Rec: 09/25/18 09:53 RS [id number]) Physical Therapy Current Condition Current Condition Evaluation Date 09/25/18 Treatment Diagnosis R pontine ischemic infarct - impaired mobility Onset Date 09/24/18 Precautions Other Precautions high fall risk M3 PT-IP Subjective Start: 09/24/18 15:09 Freq: NEEDED Status: Active Protocol: Document 09/28/18 11:15 HH (Rec: 09/28/18 12:00 HH [email or web address]) Subjective Physical Therapy Visit Type Type Treatment Note Visit Start Time 11:15 Visit Stop Time 11:45 Total Visit Minutes 45 Number of AUTOMOTIVE AIRCONDITIONING MECHANIC Visits 5 Physical Therapy Visit Comments Patient Comments Pt agreeable to mobilize with PT. M4 PT-IP Mobility and Gait Start: 09/24/18 15:09 Freq: NEEDED Status: Active Protocol: Document 09/28/18 11:15 HH (Rec: 09/28/18 12:00 HH [email or web address]) PT-Bed Mobility Assessment Sit to Supine Sit to Supine Contact Guard Assistance Scooting Scooting to Edge of Bed Independent Scooting Up and Down in Bed Independent PT-Transfer Assessment Sit to and From Stand Sit to and from Stand Contact Guard Assistance Equipment Transfer Assistive Device Gait Belt Straight Cane Transfers Transfer Destination Bed Chair Transfer Ability Level of Assist Contact Guard Assistance Comments Mobility Comments seated BP before tx 120s/60s BP after standing for 2 minutes 87/47 Seated BP in reclined position 120/61 seated BP with B LEs down 99/ 47 Pt reports L posterior knee pain and significant tenderness at L calf upon pressure. Pt appears SOB, c/o dizziness, cont sweating after standing. Gait Assessment Comments Gait Comments did not amb due to acute hypotension. M5 PT-IP Objective Assessments Start: 09/24/18 15:09 Freq: NEEDED Status: Active Protocol: Document 09/25/18 09:47 RS (Rec: 09/25/18 10:34 RS [id number]) Orientation Orientation/Cognition Level of Alertness Alert Orientation Name Age Birthday Month Date Year Day of Week Place Situation Language Function Ability Expressive Aphasia Word Finding Difficulties Safety Awareness Decreased Safety Awareness Gross Range of Motion Upper Extremity ROM Assessment Left Impaired Impairments PROM relatively intact but AROM limited due to weakness. Lower Extremity ROM Assessment Within Functional Limits Strength Upper Extremity Strength Assessment Left Impaired Lower Extremity Strength Assessment Left Impaired Hip 3+/5 Knee 3+/5 Ankle 3+/5 Coordination Assessment Gross Coordination Gross Coordination Impaired Assessment Finger to Nose Test Moderate Impairment Pronation/Supination Test Moderate Impairment Foot Tapping Test Moderate Impairment Heel on Johnson Test Moderate Impairment Coordination Comments Some of the slowness and test deficits are related to weakness, but definitely impaired coordination on all tests Sensation Assessment Sensation Light Touch Impaired Comments Sensation Comments Pt denies sensation deficits but only 50-75% for light touch on L side. Muscle Tone Muscle Tone WNL No Muscle Tone Location Left Upper Extremity Type of Tone Hypotonicity Severity of Tone Mild M6 PT-IP Treatment Start: 09/24/18 15:09 Freq: NEEDED Status: Active Protocol: Document 09/28/18 11:15 HH (Rec: 09/28/18 12:00 [email or web address]) Physical Therapy Treatment Exercises Exercises Ankle Pumps Gluteal Sets Quad Sets Other Treatments Other Treatment Performed standing L TKE M7 PT-IP Assessment and Plan Start: 09/24/18 15:09 Freq: NEEDED Status: Active Protocol: Document 09/28/18 11:15 HH (Rec: 09/28/18 12:00 HH [email or web address]) PT Summary Assessment and Plan Summary Assessment Summary Pt presents significant hypotension during standing and sitting with his feet down 80s/40s today, but BP was able to recover with reclined and supine position. He also c /o L posterior knee pain and tenderness at L calf. Pt appears SOB and c/o dizziness during tx. suspect DVT/PE and notified RN. Frequency of Treatment Frequency Of Treatment Twice a Day Treatment Plan Physical Therapy Treatment Plan Bed Mobility Training Transfer Training Gait Training Therapeutic Exercise Balance Retraining Post Op Education Discharge Planning Hot or Cold Pack Neuromuscular Re-ed Coordination Retraining Manual Therapy Other Recommendations and Next Treatment Reassess VSS, calf tenderness Focus balance, coordination, pregait w.out AD and walking without AD, stairs, LE strengthening. Recommendations To Nursing Amount of Assist Needed 1 Person Assist
[2018-09-28] MEDS: HYDROCODONE/ACET 5/325 TABLET 1 TAB PO (12:03)
--- NOTE | 2018-09-28 13:51 | PM.PN.1 ---
Subjective Date Patient Seen: 09/28/18 Time Patient Seen: 13:51 Interval history: Follow up on R CVA Patient seen at bedside. Patient is doing well, with right upper extremity getting stronger. 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 No overnight events. Pending placement to Acute Inpatient rehab. Exam Vital Signs (past 8 hours): - 09/28/18 07:10 09/28/18 08:15 09/28/18 09:12 Temperature 98.3 F Pulse Rate 78 85 78 Respiratory Rate 18 Blood Pressure 156/82 H 144/91 H 116/65 Pulse Oximetry 97 93 09/28/18 12:05 Temperature 98.2 F Pulse Rate 66 Respiratory Rate 20 Blood Pressure 106/61 Pulse Oximetry 96 Oxygen Delivery Method Room Air Oxygen Flow Rate 0 Narrative Exam Narrative: General: No acute distress, AAOx3 HEENT: Normocephalic, atraumatic. Pupils equal, round, and reactive to light. Moist mucosa. Neck: Supple. No lymphadenopathy or thyromegaly. Cardiovascular: Regular rate and rhythm without murmurs, rubs, or gallops appreciated Pulmonary: Clear to auscultation bilaterally without crackles, wheezes, or rhonchi. Abdomen: Soft, bowel sounds present, nontender, nondistended. No hepatosplenomegaly or masses appreciated. Extremities: No clubbing, cyanosis, or edema. Skin: Normal temperature, turgor, and texture; no rash, ulcers, or subcutaneous nodules appreciated. 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 Right upper and lower extremity normal muscle strength 5/5. [id number] intact bilaterally. Psychiatric: Normal mood and affect. Alert and oriented to person, place, and time. Objective Labs Result Diagrams: 09/28/18 06:24 09/28/18 06:24 Labs: Laboratory Results - last 24 hr 09/28/18 09/28/18 06:24 06:24 WBC 8.4 RBC 4.96 Hgb 15.7 Hct 45.4 MCV 91.5 MCH 31.7 MCHC 34.7 RDW 12.5 Plt Count 228 Neut % (Auto) 70.9 Lymph % (Auto) 16.7 L [place] % (Auto) 10.7 Eos % (Auto) 1.2 L Baso % (Auto) 0.5 Neut # (Auto) 5900 Lymph # (Auto) 1400 [place] # (Auto) 900 Eos # (Auto) 100 Baso # (Auto) 0 Sodium 137 Potassium 3.8 Chloride 103 Carbon Dioxide 24 BUN 18 Creatinine 0.80 Estimated GFR > 60.0 BUN/Creatinine Ratio 22.5 H Glucose 111 H Calcium 9.3 Assessment & Plan Assessment & Plan narrative: 62-year-old male with a past medical history significant for hypertension and probable obstructive sleep apnea not on CPAP who presented with left-sided weakness and facial droop and was found to have a acute right pontine CVA. 1. Acute right pontine CVA, present on admission. Active. -Patient presented with left-sided weakness, facial droop, and expressive aphasia with slight slurring of speech that is improving but slightly. -CT brain without contrast and CTA did not demonstrate any acute intracranial abnormalities. -MR stroke protocol demonstrated acute right pontine CVA. -Echocardiogram revelaed EF 50% with trace mitral regurgitation. No interatrial shunting. -PT/OT/ST evaluation: recommend acute inpatient rehab. -Continue aspirin 81 mg daily and atorvastatin 40 mg daily at bedtime. 2. Hypertension, chronic -Patient became orthostatic while working with PT this morning, with PB dropping to 94/57 -Decrease Lisinopril to 5mg PO daily - Monitor BP 3. Hyperlipidemia, chronic -Stable -Continue atorvastatin 40 mg daily at bedtime as above. 4. Probable obstructive sleep apnea, chronic, present on admission. Stable. -Patient would benefit from sleep study and CPAP. 5. Systolic CHF - Newly diagnosed - Echocardiogram revelaed EF 50% with trace mitral regurgitation. No interatrial shunting. - I initially started patient on Coreg 3.125mg PO BID and continued Lisinopril Lisinopril 10mg PO Daily, however patient became orthostatic while working with Physical therapy - Will decrease Lisinopril to 5mg PO Daily and hold BB at this time - Continue ASA 81mg Daily, and Atorvastatin 40mg PO Daily - Patient will need Cardiology follow up for possible angiogram to assess the cause of systolic dysfunction Dispo: Acute Inpatient Rehab facility [facility] Deep Vein Thrombosis/Pulmonary Embolism Present on Admission: No
--- NOTE | 2018-09-28 13:56 | P.PN_ITS ---
Subjective Date Patient Seen: 09/28/18 Time Patient Seen: 13:51 Interval history: Follow up on R CVA Patient seen at bedside. Patient is doing well, with right upper extremity getting stronger. 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 No overnight events. Pending placement to Acute Inpatient rehab. Exam Vital Signs (past 8 hours): - 09/28/18 07:10 09/28/18 08:15 09/28/18 09:12 Temperature 98.3 F Pulse Rate 78 85 78 Respiratory Rate 18 Blood Pressure 156/82 H 144/91 H 116/65 Pulse Oximetry 97 93 09/28/18 12:05 Temperature 98.2 F Pulse Rate 66 Respiratory Rate 20 Blood Pressure 106/61 Pulse Oximetry 96 Oxygen Delivery Method Room Air Oxygen Flow Rate 0 Narrative Exam Narrative: General: No acute distress, AAOx3 HEENT: Normocephalic, atraumatic. Pupils equal, round, and reactive to light. Moist mucosa. Neck: Supple. No lymphadenopathy or thyromegaly. Cardiovascular: Regular rate and rhythm without murmurs, rubs, or gallops appreciated Pulmonary: Clear to auscultation bilaterally without crackles, wheezes, or rhonchi. Abdomen: Soft, bowel sounds present, nontender, nondistended. No hepatosplenomegaly or masses appreciated. Extremities: No clubbing, cyanosis, or edema. Skin: Normal temperature, turgor, and texture; no rash, ulcers, or subcutaneous nodules appreciated. 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 Right upper and lower extremity normal muscle strength 5/5. [id number] intact bilaterally. Psychiatric: Normal mood and affect. Alert and oriented to person, place, and time. Objective Labs Result Diagrams: 09/28/18 06:24 09/28/18 06:24 Labs: Laboratory Results - last 24 hr 09/28/18 09/28/18 06:24 06:24 WBC 8.4 RBC 4.96 Hgb 15.7 Hct 45.4 MCV 91.5 MCH 31.7 MCHC 34.7 RDW 12.5 Plt Count 228 Neut % (Auto) 70.9 Lymph % (Auto) 16.7 L [place] % (Auto) 10.7 Eos % (Auto) 1.2 L Baso % (Auto) 0.5 Neut # (Auto) 5900 Lymph # (Auto) 1400 [place] # (Auto) 900 Eos # (Auto) 100 Baso # (Auto) 0 Sodium 137 Potassium 3.8 Chloride 103 Carbon Dioxide 24 BUN 18 Creatinine 0.80 Estimated GFR > 60.0 BUN/Creatinine Ratio 22.5 H Glucose 111 H Calcium 9.3 Assessment & Plan Assessment & Plan narrative: 62-year-old male with a past medical history si gnificant for hypertension and probable obstructive sleep apnea not on CPAP who presented with left-sided weakness and facial droop and was found to have a acute right pontine CVA. 1. Acute right pontine CVA, present on admission. Active. -Patient presented with left-sided weakness, facial droop, and expressive aphasia with slight slurring of speech that is improving but slightly. -CT brain without contrast and CTA did not demonstrate any acute intracranial abnormalities. -MR stroke protocol demonstrated acute right pontine CVA. -Echocardiogram revelaed EF 50% with trace mitral regurgitation. No interatrial shunting. -PT/OT/ST evaluation: recommend acute inpatient rehab. -Continue aspirin 81 mg daily and atorvastatin 40 mg daily at bedtime. 2. Hypertension, chronic -Patient became orthostatic while working with PT this morning, with PB dropping to 94/57 -Decrease Lisinopril to 5mg PO daily - Monitor BP 3. Hyperlipidemia, chronic -Stable -Continue atorvastatin 40 mg daily at bedtime as above. 4. Probable obstructive sleep apnea, chronic, present on admission. Stable. -Patient would benefit from sleep study and CPAP. 5. Systolic CHF - Newly diagnosed - Echocardiogram revelaed EF 50% with trace mitral regurgitation. No interatrial shunting. - I initially started patient on Coreg 3.125mg PO BID and continued Lisinopril Lisinopril 10mg PO Daily, however patient became orthostatic while working with Physical therapy - Will decrease Lisinopril to 5mg PO Daily and hold BB at this time - Continue ASA 81mg Daily, and Atorvastatin 40mg PO Daily - Patient will need Cardiology follow up for possible angiogram to assess the cause of systolic dysfunction Dispo: Acute Inpatient Rehab facility [facility] Deep Vein Thrombosis/Pulmonary Embolism Present on Admission: No
[2018-09-28] MEDS: SODIUM CHLORIDE 0.9% 1,000 ML 80 ML IV (14:20)
--- NOTE | 2018-09-28 14:30 | PT.IPTN ---
Current Diagnoses Cerebral infarction, unspecified (09/24/18) Physical Therapy Treatment Note M2 PT-IP Current Condition Start: 09/24/18 15:09 Freq: NEEDED Status: Active Protocol: Document 09/25/18 09:47 RS (Rec: 09/25/18 09:53 RS [email or web address]) Physical Therapy Current Condition Current Condition Evaluation Date 09/25/18 Treatment Diagnosis R pontine ischemic infarct - impaired mobility Onset Date 09/24/18 Precautions Other Precautions high fall risk M3 PT-IP Subjective Start: 09/24/18 15:09 Freq: NEEDED Status: Active Protocol: Document 09/28/18 14:25 GGD (Rec: 09/28/18 14:26 GGD [id number]) Subjective Physical Therapy Visit Type Notes Hold per RN, due to low BP. Will see in AM Amount of Assist Needed 1 Person Assist
[2018-09-28] MEDS: DOCUSATE 100 MG CAPSULE PO (21:08)
[2018-09-28] MEDS: SENNOSIDES 8.6 MG TABLET 17.2 MG PO (21:08)
[2018-09-28] MEDS: ATORVASTATIN 20 MG TABLET 40 MG PO (21:08)
[2018-09-29] VITALS (10 sets, daily range): BP systolic 130–167; BP diastolic 73–95; PULSE 59–79; RESP 16–19; TEMP 36.3–37.1; O2SAT 94–98
--- NOTE | 2018-09-29 05:49 | PC.NURSE ---
pt AO, pleasant and receptive to care throughout shift. NS infusing at 80/hr. pt up to BR to void. Recent void of 350 with a large BM. ye 145/73.
[2018-09-29 06:23] LABS: Add Manual Diff / Slide Review NO; Basophils Absolute Auto 0 /uL (0-100); Basophils Percent Auto 0.5 % (0-2); Eosinophils Absolute Auto 0 /uL (0-450); Eosinophils Percent Auto 0.4 % (2-4); Hematocrit 43.6 % (41-53); Lymphocytes Absolute Auto 1300 /uL (1100-4500); Lymphocytes Percent Auto 19.9 % (25-40); Mean Corpuscular HGB Conc 34.5 % (30-36); Mean Corpuscular Hemoglobin 32.2 PG (26-34); Mean Corpuscular Volume 93.3 fL (80-100); Monocytes Absolute Auto 900 /uL (0-900); Neutrophils Absolute Auto 4200 /uL (1500-7000); Neutrophils Percent Auto 65.2 % (50-75); Platelet Count 184 X10^3/uL (150-400); Red Blood Cell Count 4.67 X10^6/uL (4.5-5.9); Red Cell Distribution Width 12.8 % (11.6-14.8); White Blood Cell Count 6.4 X10^3/uL (4.5-11.0)
[2018-09-29 06:30] LABS: BUN Creatinine Ratio 18.8 (6-22); Blood Urea Nitrogen 15 mg/dL (9-20); Calcium 8.9 mg/dL (8.4-10.2); Carbon Dioxide 23 mmol/L (22-32); Chloride 103 mmol/L (98-107); Estimated Glomerular Filt Rate > 60.0 mL/min (>60); Glucose 99 mg/dL (80-110); HEMOLYSIS < 15 (0-50); Potassium 4.2 mmol/L (3.4-5.1); Sodium 136 mmol/L (137-145)
[2018-09-29] MEDS: HEPARIN 5,000 UNIT/ML VIAL 5000 UNIT SUBCUT ×2 (08:36→21:27)
[2018-09-29] MEDS: ACETAMINOPHEN 325 MG TABLET 650 MG PO (08:36)
[2018-09-29] MEDS: SODIUM CHLORIDE 0.9% FLUSH 10 ML IV ×2 (08:37→21:29)
[2018-09-29] MEDS: ASPIRIN EC 81 MG TABLET PO (08:37)
[2018-09-29] MEDS: LISINOPRIL 5 MG TABLET PO (08:37)
--- NOTE | 2018-09-29 10:18 | PM.PN.1 ---
Subjective Date Patient Seen: 09/29/18 Interval history: He is seen today to follow up the left yenifer paresis status post stroke. He is complaining of a headache and requesting ibuprofen. He is an excellent candidate for inpatient rehab and is awaiting placement. His insurance is [employer]. The CBC and BMP today are normal. He feels like his weakness has improved since yesterday. Exam Vital Signs (past 8 hours): - 09/29/18 05:00 09/29/18 07:25 09/29/18 07:39 Temperature 98.7 F 97.3 F L Pulse Rate 74 77 Respiratory Rate 16 18 Blood Pressure 145/73 H 143/82 H Pulse Oximetry 95 97 95 Oxygen Delivery Method Room Air Oxygen Flow Rate 0 Narrative Exam Narrative: Alert and oriented x3. No apparent distress. Heart is regular rate and rhythm without murmur. Lungs are clear to auscultation bilaterally. Extremities have no ankle edema. Neuro exam there is mild right facial drooping, left upper extremity diminished strength with just perceptible movement of the fingers. Mild left leg weakness and ataxia. Objective Labs Result Diagrams: 09/29/18 05:56 09/29/18 05:56 Labs: Laboratory Results - last 24 hr 09/29/18 09/29/18 05:56 05:56 WBC 6.4 RBC 4.67 Hgb 15.0 Hct 43.6 MCV 93.3 MCH 32.2 MCHC 34.5 RDW 12.8 Plt Count 184 Neut % (Auto) 65.2 Lymph % (Auto) 19.9 L [place] % (Auto) 14.0 Eos % (Auto) 0.4 L Baso % (Auto) 0.5 Neut # (Auto) 4200 Lymph # (Auto) 1300 [place] # (Auto) 900 Eos # (Auto) 0 Baso # (Auto) 0 Sodium 136 L Potassium 4.2 Chloride 103 Carbon Dioxide 23 BUN 15 Creatinine 0.80 Estimated GFR > 60.0 BUN/Creatinine Ratio 18.8 Glucose 99 Calcium 8.9 Assessment & Plan Assessment & Plan narrative: 1. Acute right pontine CVA, present on admission. Active. -Patient presented with left-sided weakness, facial droop, and expressive aphasia with slight slurring of speech that is improving steadily. -CT brain without contrast and CTA did not demonstrate any acute intracranial abnormalities. -MR stroke protocol demonstrated acute right pontine CVA. -Echocardiogram revelaed EF 50% with trace mitral regurgitation. No interatrial shunting. -PT/OT/ST evaluation: recommend acute inpatient rehab. -Continue aspirin 81 mg daily and atorvastatin 40 mg daily at bedtime. Consider adding Plavix. -resume metoprolol and increase lisinopril dose today as his blood pressure has remained high despite walking/sitting up as compared to yesterday. 2. Hypertension, chronic -orthostatic symptoms and not return. Resume metoprolol and increase lisinopril today. 3. Hyperlipidemia, chronic -Stable -Continue atorvastatin 40 mg daily at bedtime as above. 4. Probable obstructive sleep apnea, chronic, present on admission. Stable. -Patient would benefit from sleep study and CPAP. 5. Systolic CHF - Newly diagnosed - Echocardiogram revelaed EF 50% with trace mitral regurgitation. No interatrial shunting. - he became orthostatic on carvedilol yesterday so will change to metoprolol and increase lisinopril dose today. Not orthostatic today. - Continue ASA 81mg Daily, and Atorvastatin 40mg PO Daily - Patient will need Cardiology follow up for possible angiogram to assess the cause of systolic dysfunction Dispo: Acute Inpatient Rehab facility Quality [facility] Deep Vein Thrombosis/Pulmonary Embolism Present on Admission: No
--- NOTE | 2018-09-29 10:30 | PT.IPTN ---
Current Diagnoses Cerebral infarction, unspecified (09/24/18) Physical Therapy Treatment Note M2 PT-IP Current Condition Start: 09/24/18 15:09 Freq: NEEDED Status: Active Protocol: Document 09/25/18 09:47 RS (Rec: 09/25/18 09:53 RS [email or web address]) Physical Therapy Current Condition Current Condition Evaluation Date 09/25/18 Treatment Diagnosis R pontine ischemic infarct - impaired mobility Onset Date 09/24/18 Precautions Other Precautions high fall risk M3 PT-IP Subjective Start: 09/24/18 15:09 Freq: NEEDED Status: Active Protocol: Document 09/29/18 10:30 GGD (Rec: 09/29/18 12:29 GGD [email or web address]) Subjective Physical Therapy Visit Type Type Treatment Note Visit Start Time 10:00 Visit Stop Time 10:30 Total Visit Minutes 30 Number of CHILD DEVELOPMENT PROFESSOR Visits 1 Physical Therapy Visit Comments Patient Comments Pt wanting to work with therapy. M4 PT-IP Mobility and Gait Start: 09/24/18 15:09 Freq: NEEDED Status: Active Protocol: Document 09/29/18 10:30 GGD (Rec: 09/29/18 12:29 GGD [email or web address]) PT-Bed Mobility Assessment Supine to Sit Supine to Sit Independent Scooting Scooting to Edge of Bed Independent Scooting Up and Down in Bed Independent PT-Transfer Assessment Sit to and From Stand Sit to and from Stand Contact Guard Assistance Equipment Transfer Assistive Device Gait Belt Straight Cane Transfers Transfer Destination Bed Transfer Ability Level of Assist Contact Guard Assistance Comments Mobility Comments BP in supine 136/95, sitting 156/92, in sitting after standing exercise 160/101 Gait Assessment Gait Gait Assistance Required: Contact Guard Assist Minimum Assistance Distance (Feet) 5 Assistive Devices Assistive Device None Gait Belt Gait Deviations General Gait Pattern Ataxic Decreased Stride Length Decreased Feet Clearance Step-to Gait Factors Limiting Gait Function Factors Limiting Gait Function Decreased Sensation Decreased Strength Incoordination Poor Balance M5 PT-IP Objective Assessments Start: 09/24/18 15:09 Freq: NEEDED Status: Active Protocol: Document 09/25/18 09:47 RS (Rec: 09/25/18 10:34 RS [email or web address]) Orientation Orientation/Cognition Level of Alertness Alert Orientation Name Age Birthday Month Date Year Day of Week Place Situation Language Function Ability Expressive Aphasia Word Finding Difficulties Safety Awareness Decreased Safety Awareness Gross Range of Motion Upper Extremity ROM Assessment Left Impaired Impairments PROM relatively intact but AROM limited due to weakness. Lower Extremity ROM Assessment Within Functional Limits Strength Upper Extremity Strength Assessment Left Impaired Lower Extremity Strength Assessment Left Impaired Hip 3+/5 Knee 3+/5 Ankle 3+/5 Coordination Assessment Gross Coordination Gross Coordination Impaired Assessment Finger to Nose Test Moderate Impairment Pronation/Supination Test Moderate Impairment Foot Tapping Test Moderate Impairment Heel on Johnson Test Moderate Impairment Coordination Comments Some of the slowness and test deficits are related to weakness, but definitely impaired coordination on all tests Sensation Assessment Sensation Light Touch Impaired Comments Sensation Comments Pt denies sensation deficits but only 50-75% for light touch on L side. Muscle Tone Muscle Tone WNL No Muscle Tone Location Left Upper Extremity Type of Tone Hypotonicity Severity of Tone Mild M6 PT-IP Treatment Start: 09/24/18 15:09 Freq: NEEDED Status: Active Protocol: Document 09/29/18 10:30 GGD (Rec: 09/29/18 12:29 GGD [email or web address]) Physical Therapy Treatment Exercises Exercises Ankle Pumps Other Treatments Other Treatment Performed standing balance tandem stance with head turns, SLS, Standing hip exetension and hip abduction. Gait around cones and step overs cones with min A. M7 PT-IP Assessment and Plan Start: 09/24/18 15:09 Freq: NEEDED Status: Active Protocol: Document 09/29/18 10:30 GGD (Rec: 09/29/18 12:29 GGD [email or web address]) PT Summary Assessment and Plan Summary Assessment Summary Pt had decrease in foot clearance with gait. He did have increase in unsteadiness with balance activities. He had improved technique with standing strengthening exercise. Frequency of Treatment Frequency Of Treatment Twice a Day Treatment Plan Physical Therapy Treatment Plan Bed Mobility Training Transfer Training Gait Training Therapeutic Exercise Balance Retraining Post Op Education Discharge Planning Hot or Cold Pack Neuromuscular Re-ed Coordination Retraining Manual Therapy Other Recommendations and Next Treatment balance, coordination, pregait Focus w.out AD and walking without AD, stairs, LE strengthening. Recommendations To Nursing Amount of Assist Needed 1 Person Assist
--- NOTE | 2018-09-29 10:51 | CM.DPC ---
Addendum entered by Hazel Preciado R.N. 09/29/18 15:17: Attempted to reach Vane at [facility] to follow up with authorization. Left her message. Have already faxed her latest physical therapy note from today, included yesterday's therapy notes as well. Original Note: DCP Cont: Checked in with patient. He was sitting up on bed. Let him know that case management is continuing to be in touch with [facility] regarding status of authorization. Erica had called [facility] today, for she also has a patient that she is trying to get into their rehab facility. Stated that [facility] is continuing to review documents. Stated that Vane would be in touch today. Her phone number is: [phone]. Will continue to follow up with her this week-end. P: DCP to continue to follow closely. Plan is for [facility] once authorization goes through and he is approved. Should be able to be transported by family. Hazel Preciado RN/Sommelier
--- NOTE | 2018-09-29 11:59 | OT.IP.TRT ---
Current Diagnoses Cerebral infarction, unspecified (09/24/18) Occupational Therapy Treatment Note M2 OT-IP Current Condition Start: 09/25/18 15:53 Freq: Status: Active Protocol: Document 09/25/18 15:06 PJM (Rec: 09/25/18 16:24 PJM [id number]) Occupational Therapy Current Condition Current Condition Evaluation Date 09/25/18 Treatment Diagnosis decreased LUE function, decreased indep in all self care,mobility s/p stroke Diagnosis Onset Date 09/24/18 Post Operative Precautions Other Precautions fall risk, L hemiparesis, LUE neglect Weight Bearing Status Weight Bearing Status Weight Bear as Tolerated M3 OT- IP Subjective and Pain Start: 09/25/18 15:53 Freq: Status: Active Protocol: Document 09/29/18 11:59 PJM (Rec: 09/29/18 17:27 PJ [email or web address]) OT- Subjective Occupational Therapy Visit Type Type Treatment Note Visit Start Time 11:02 Visit Stop Time 11:59 Total Visit Minutes 57 Notes Pt would like to shower today. Monitored BP today at RN request due to episodes of both hypotension/hypertension over last 24 hours. Pt not orthostatic or hypertensive this session with BP 127/79 HR 67 in supine, BP 141/93 HR 75 sitting EOB, BP 137/96 HR 80 standing After shower and dressing, BP 138/89, HR 79. RN notified. Occupational Therapy Visit Comments Patient Comments A shower would feel good. Let's do it. My L calf is less sore today. Patient/Caregiver Goals to go to rehab unit OT Pain Assessment Pain When Pain Assessed After Treatment Pain Present Pain Present Denied Pain M4 OT- IP ADL's Start: 09/25/18 15:53 Freq: Status: Active Protocol: Document 09/29/18 11:59 PJM (Rec: 09/29/18 17:27 PJ [email or web address]) OT ADL-Oral Care General Eval Oral Care Ability Standby Assistance Devices Oral Care Devices Toothbrush Comments Oral Care Comments Pt indep with unilateral set up of toothpaste onto brush and opening/closing toothpaste tube. SBA for balance and BLE equal weight bearing while standing at sink. OT ADL-Dressing General Eval Upper Body Dressing Ability Minimal Assistance Lower Body Dressing Ability Minimal Assistance Areas Needing Assistance Pull-Over Shirt Underpants/Brief Pants/Shorts Socks Comments OT Dressing Comments Pt impulsive with donning pullover shirt requiring min assist due to inadequate setup and planning. Pt min assist to don R sock, SBA with undershorts and pants with CGA when standing to pull pants over hips. OT ADL-Bathing Bathing Type Bathing Type Shower General Evaluation Bathing Ability Minimal Assistance Areas Needing Assistance Wash/Dry Back Devices Bathing Equipment Shower Chair with Arms Grab Bars Comments OT Bathing Comments Pt needs verbal cues to sit for safety for some tasks, use grab bars and to problem solve unilateral techniques. M7 OT- IP Mobility and Balance Start: 09/25/18 15:53 Freq: Status: Active Protocol: Document 09/29/18 11:59 PJM (Rec: 09/29/18 17:27 PJM [email or web address]) OT- Bed Mobility Assessment Rolling Type of Rolling Roll to Right Level of Assistance Standby Assistance Head of Bed Elevated Sit to Supine Sit to Supine Assist Standby Assistance Head of Bed Elevated Scooting Scooting to Edge of Bed Standby Assistance OT-Transfer Assessment Sit to and From Stand Sit to and from Stand Contact Guard Assistance 1 Person Assistance Transfers Transfer Ability Contact Guard Assistance 1 Person Assistance Technique Transfer Destination Bed Chair Shower Stall Transfer Technique Stand Step Pivot Devices Transfer Assistive Devices Gait Belt Front Wheeled Walker Comments Mobility Comments Unorganized and impulsive in tight spaces with FWW such as accessing shower stall. Pt stretched L calf with theraband prior to mobility to decrease calf pain. OT- Gait Assessment Gait Gait Assistance Required: Contact Guard Assist Distance (Feet) 20 Assistive Devices Assistive Device Gait Belt Front Wheeled Walker OT- Balance Assessment Sitting Balance and Reactions Static Sitting Balance Ability Good Dynamic Sitting Balance Ability Good Standing Balance and Reactions Static Standing Balance Ability Fair Dynamic Standing Balance Ability Fair M8 OT- IP Objective Assessments Start: 09/25/18 15:53 Freq: Status: Active Protocol: Document 09/29/18 11:59 PJM (Rec: 09/29/18 17:27 PJM [email or web address]) OT Gross Range of Motion Upper Extremity Range of Motion Assessment Left Impaired ROM Impairments AAROM WNL, AROM limited by weakness OT Strength Upper Extremity Strength Assessment Left Impaired Hand Rehab Services Aide Strength Hand Dominance Right OT- Coordination Assessment Comments Coordination Comments Pt can touch thumb to index and middle fingers but continues to lack sufficient strength for functional prehension. Pt has mass grasp and release using tenodesis assist for finger extension/ release. Pt still lacks sufficient proximal strength to asya LUE/hand functionally during self care tasks. OT-Muscle Tone Assessment Muscle Tone Location Left Upper Extremity Type of Tone Flexor Severity of Tone Mild Jah Grade Scale Grade 1 OT Sensation Assessment Edema Edema Absent M9 OT- IP Assessment and Plan Start: 09/25/18 15:53 Freq: Status: Active Protocol: Document 09/29/18 11:59 PJM (Rec: 09/29/18 17:27 PJM [email or web address]) OT Summary Assessment and Plan Potential Rehabilitation Potential Excellent Summary OT Impairments Pain Range of Motion Strength Balance Coordination Tone Functional Mobility Dressing Toileting Bathing Toilet Transfers Shower Transfers Progress Towards Goals Progressing Toward Goals Assessment Summary Pt continues to make good progress as described above.LUE neglect improving. He remains an excellent rehab candidate. Pt awaiting authorization for acute in pt rehab services at [facility]. Pt ready to progress to selected light IADL tasks. Goals Grooming Goal Independent Dressing Goal Standby Assistance Toileting Goal Independent Bathing Goal Standby Assistance Toilet Transfer Goal Standby Assistance Shower Transfer Goal Standby Assistance Patient/Caregiver Education Goal Demonstrate Energy Conservation and Pacing OT-Other Goals Grooming to be done standing at sink with no loss of balance and utilizing unilateral strategies. Pt able to do SROM and AAROM for left UE as appropriate after training by OT. Days to Meet Goals 7 Frequency of Treatment Frequency Of Treatment Once a Day Treatment Plan OT Treatment Plan ADL Training Functional Mobility Neuromuscular Re-education Patient/Family Education Discharge Planning Discharge Recommendations OT Discharge Recommendations Acute Rehab Home Equipment Needs to be determined in next rehab setting
[2018-09-29] MEDS: IBUPROFEN 600 MG TABLET PO ×2 (12:03→18:25)
[2018-09-29] MEDS: METOPROLOL ER 25 MG TABLET PO (12:03)
--- NOTE | 2018-09-29 15:30 | PT.IPTN ---
Current Diagnoses Cerebral infarction, unspecified (09/24/18) Physical Therapy Treatment Note M2 PT-IP Current Condition Start: 09/24/18 15:09 Freq: NEEDED Status: Active Protocol: Document 09/25/18 09:47 RS (Rec: 09/25/18 09:53 RS [email or web address]) Physical Therapy Current Condition Current Condition Evaluation Date 09/25/18 Treatment Diagnosis R pontine ischemic infarct - impaired mobility Onset Date 09/24/18 Precautions Other Precautions high fall risk M3 PT-IP Subjective Start: 09/24/18 15:09 Freq: NEEDED Status: Active Protocol: Document 09/29/18 15:30 GGD (Rec: 09/29/18 16:00 GGD [email or web address]) Subjective Physical Therapy Visit Type Type Treatment Note Visit Start Time 15:00 Visit Stop Time 15:30 Total Visit Minutes 30 Number of NURSING INFORMATION SYSTEMS COORDINATOR Visits 2 Physical Therapy Visit Comments Patient Comments Pt states his calf is feeling better. M4 PT-IP Mobility and Gait Start: 09/24/18 15:09 Freq: NEEDED Status: Active Protocol: Document 09/29/18 15:30 GGD (Rec: 09/29/18 16:00 GGD [email or web address]) PT-Transfer Assessment Sit to and From Stand Sit to and from Stand Contact Guard Assistance Equipment Transfer Assistive Device Gait Belt Straight Cane Transfers Transfer Destination Bed Transfer Ability Level of Assist Contact Guard Assistance Comments Mobility Comments BP in sitting 138/90, in sitting after standing exercise 162/100, sitting after 3 min 145/109 Gait Assessment Gait Gait Assistance Required: Contact Guard Assist Distance (Feet) 350 Assistive Devices Assistive Device None Gait Belt Straight Cane Gait Deviations General Gait Pattern Ataxic Decreased Stride Length Decreased Feet Clearance Step-to Gait Factors Limiting Gait Function Factors Limiting Gait Function Decreased Sensation Decreased Strength Incoordination Poor Balance Comments Gait Comments Pt ambulated 120 feet with SPC with CGA and then 230 feet without AD with CGA and min cues. M5 PT-IP Objective Assessments Start: 09/24/18 15:09 Freq: NEEDED Status: Active Protocol: Document 09/25/18 09:47 RS (Rec: 09/25/18 10:34 RS [email or web address]) Orientation Orientation/Cognition Level of Alertness Alert Orientation Name Age Birthday Month Date Year Day of Week Place Situation Language Function Ability Expressive Aphasia Word Finding Difficulties Safety Awareness Decreased Safety Awareness Gross Range of Motion Upper Extremity ROM Assessment Left Impaired Impairments PROM relatively intact but AROM limited due to weakness. Lower Extremity ROM Assessment Within Functional Limits Strength Upper Extremity Strength Assessment Left Impaired Lower Extremity Strength Assessment Left Impaired Hip 3+/5 Knee 3+/5 Ankle 3+/5 Coordination Assessment Gross Coordination Gross Coordination Impaired Assessment Finger to Nose Test Moderate Impairment Pronation/Supination Test Moderate Impairment Foot Tapping Test Moderate Impairment Heel on Johnson Test Moderate Impairment Coordination Comments Some of the slowness and test deficits are related to weakness, but definitely impaired coordination on all tests Sensation Assessment Sensation Light Touch Impaired Comments Sensation Comments Pt denies sensation deficits but only 50-75% for light touch on L side. Muscle Tone Muscle Tone WNL No Muscle Tone Location Left Upper Extremity Type of Tone Hypotonicity Severity of Tone Mild M6 PT-IP Treatment Start: 09/24/18 15:09 Freq: NEEDED Status: Active Protocol: Document 09/29/18 15:30 GGD (Rec: 09/29/18 16:00 GGD [email or web address]) Physical Therapy Treatment Exercises Exercises Ankle Pumps M7 PT-IP Assessment and Plan Start: 09/24/18 15:09 Freq: NEEDED Status: Active Protocol: Document 09/29/18 15:30 GGD (Rec: 09/29/18 16:00 GGD [email or web address]) PT Summary Assessment and Plan Summary Assessment Summary Pt improving gait. He had improved foot clearance and stability with gait without AD . He did need min cue for gait pattern. He had increase in BP with activity that limit activity. Pt would benefit from IRF. Frequency of Treatment Frequency Of Treatment Twice a Day Treatment Plan Physical Therapy Treatment Plan Bed Mobility Training Transfer Training Gait Training Therapeutic Exercise Balance Retraining Post Op Education Discharge Planning Hot or Cold Pack Neuromuscular Re-ed Coordination Retraining Manual Therapy Other Recommendations and Next Treatment monitor BP, balance, Focus coordination, pregait w.out AD and walking without AD, stairs, LE strengthening. Recommendations To Nursing Amount of Assist Needed 1 Person Assist Discharge Recommendations PT Discharge Recommendations Acute Rehab
[2018-09-29] MEDS: ATORVASTATIN 20 MG TABLET 40 MG PO (21:27)
[2018-09-29] MEDS: LISINOPRIL 10 MG TABLET PO (21:28)
[2018-09-30] VITALS (12 sets, daily range): BP systolic 116–147; BP diastolic 71–90; PULSE 55–70; RESP 10–20; TEMP 36.3–37.1; O2SAT 96–98
--- NOTE | 2018-09-30 04:08 | PC.NURSE ---
NIH scale 5 for my assessment. Denied pain so far this shift. Telemetry, SA,SB with 1 degree AVB.
[2018-09-30] MEDS: IBUPROFEN 600 MG TABLET PO (08:13)
[2018-09-30] MEDS: LISINOPRIL 10 MG TABLET PO ×2 (08:14→20:59)
[2018-09-30] MEDS: METOPROLOL ER 25 MG TABLET PO (08:14)
[2018-09-30] MEDS: ASPIRIN EC 81 MG TABLET PO (08:14)
[2018-09-30] MEDS: HEPARIN 5,000 UNIT/ML VIAL 5000 UNIT SUBCUT ×2 (08:14→20:58)
[2018-09-30] MEDS: SODIUM CHLORIDE 0.9% FLUSH 10 ML IV ×2 (08:14→21:57)
--- NOTE | 2018-09-30 10:11 | CM.DPC ---
Addendum entered by Hazel Preciado R.N. 09/30/18 14:36: Faxed physical therapy notes from today to Vane, at [facility]. Her fax number is: [phone] Original Note: DCNelsy Cont: Had spoken to Kristyana at [facility] rehab yesterday, she has returned call. Stated that it is unlikely that they will hear from [facility] this week-end, since they are not usually there on week-ends. She confirmed that she received current therapy notes from yesterday. She stated, if she does hear anything back from [facility], she will call. She stated also that most likely, will be tomorrow, Monday. In the mean time, patient continues to work with physical therapy team here, and is participating. P: DCP to continue to follow closely. Plan if for [facility], hopefully, will be tomorrow. Continuing to update hospitalist and patient. Will fax over recent physical therapy notes from today to Kristy. Hazel Preciado RN/[employer]
--- NOTE | 2018-09-30 11:08 | PM.PN.1 ---
Subjective Date Patient Seen: 09/30/18 Time Patient Seen: 11:09 Interval history: He is seen today to follow up the left yenifer paresis status post stroke. He is an excellent candidate for inpatient rehab and is awaiting placement. His insurance is [employer]. The CBC and BMP yesterday were normal. He feels like his weakness has improved since yesterday. He is noting that his slurred speech improves after taking sips of water. Exam Vital Signs (past 8 hours): - 09/30/18 04:00 09/30/18 08:10 09/30/18 08:30 Temperature 97.7 F 98.3 F Pulse Rate 65 70 Respiratory Rate 16 18 Blood Pressure 131/71 137/88 Pulse Oximetry 98 98 98 Oxygen Delivery Method Room Air Oxygen Flow Rate 0 Narrative Exam Narrative: Alert and oriented x3. No apparent distress. Heart is regular rate and rhythm without murmur. Lungs are clear to auscultation bilaterally. Extremities have no ankle edema. 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 Objective Labs Result Diagrams: 09/29/18 05:56 09/29/18 05:56 Assessment & Plan Assessment & Plan narrative: 1. Acute right pontine CVA, present on admission. Active. -Patient presented with left-sided weakness, facial droop, and expressive aphasia with slight slurring of speech that is improving steadily. -CT brain without contrast and CTA did not demonstrate any acute intracranial abnormalities. -MR stroke protocol demonstrated acute right pontine CVA. -Echocardiogram revelaed EF 50% with trace mitral regurgitation. No interatrial shunting. -PT/OT/ST evaluation: continue to recommend acute inpatient rehab. -Continue aspirin 81 mg daily and atorvastatin 40 mg daily at bedtime. Consider adding Plavix. -tolerating metoprolol and lisinopril. 2. Hypertension, chronic -orthostatic symptoms and not return. Resumed metoprolol and increased lisinopril yesterday. 3. Hyperlipidemia, chronic -Stable -Continue atorvastatin 40 mg daily at bedtime. 4. Probable obstructive sleep apnea, chronic, present on admission. Stable. -Patient would benefit from sleep study and CPAP. 5. Systolic CHF - Newly diagnosed - Echocardiogram revelaed EF 50% with trace mitral regurgitation. No interatrial shunting. - he became orthostatic on carvedilol a few days ago but is tolerating metoprolol/lisinopril at this time. - Continue ASA 81mg Daily, and Atorvastatin 40mg PO Daily - Patient will need Cardiology follow up for possible angiogram to assess the cause of systolic dysfunction Dispo: Acute Inpatient Rehab facility Quality VTE Deep Vein Thrombosis/Pulmonary Embolism Present on Admission: No
--- NOTE | 2018-09-30 14:18 | PT.IPTN ---
Current Diagnoses Cerebral infarction, unspecified (09/24/18) Physical Therapy Treatment Note M2 PT-IP Current Condition Start: 09/24/18 15:09 Freq: NEEDED Status: Active Protocol: Document 09/25/18 09:47 RS (Rec: 09/25/18 09:53 RS [email or web address]) Physical Therapy Current Condition Current Condition Evaluation Date 09/25/18 Treatment Diagnosis R pontine ischemic infarct - impaired mobility Onset Date 09/24/18 Precautions Other Precautions high fall risk M3 PT-IP Subjective Start: 09/24/18 15:09 Freq: NEEDED Status: Active Protocol: Document 09/30/18 11:15 CLB (Rec: 09/30/18 14:18 CLB [email or web address]) Subjective Physical Therapy Visit Type Type Treatment Note Visit Start Time 11:15 Visit Stop Time 11:40 Total Visit Minutes 25 Number of PEDORTHIST Visits 3 Physical Therapy Visit Comments Patient Comments Pt agreeable to do therapy. M4 PT-IP Mobility and Gait Start: 09/24/18 15:09 Freq: NEEDED Status: Active Protocol: Document 09/30/18 11:15 CLB (Rec: 09/30/18 14:18 CLB [id number]) PT-Bed Mobility Assessment Supine to Sit Supine to Sit Independent Scooting Scooting to Edge of Bed Independent PT-Transfer Assessment Sit to and From Stand Sit to and from Stand Contact Guard Assistance Equipment Transfer Assistive Device Gait Belt Straight Cane Transfers Transfer Destination Chair Transfer Ability Level of Assist Contact Guard Assistance Comments Mobility Comments BP in sitting in bed 147/79, after exercise 141/91 and in sitting in chair after 2 minutes 129/80. Pt states he feels clammy when BP goes up. Gait Assessment Gait Gait Assistance Required: Contact Guard Assist Distance (Feet) 250 Assistive Devices Assistive Device Gait Belt Straight Cane Gait Deviations General Gait Pattern Ataxic Decreased Stride Length Decreased Feet Clearance Step-to Gait Factors Limiting Gait Function Factors Limiting Gait Function Decreased Sensation Decreased Strength Incoordination Poor Balance Comments Gait Comments Pt ambulated CGA with SPC ~ 250ft with cues to stay to right as pt has some neglect of LUE during gait. M5 PT-IP Objective Assessments Start: 09/24/18 15:09 Freq: NEEDED Status: Active Protocol: Document 09/25/18 09:47 RS (Rec: 09/25/18 10:34 RS [email or web address]) Orientation Orientation/Cognition Level of Alertness Alert Orientation Name Age Birthday Month Date Year Day of Week Place Situation Language Function Ability Expressive Aphasia Word Finding Difficulties Safety Awareness Decreased Safety Awareness Gross Range of Motion Upper Extremity ROM Assessment Left Impaired Impairments PROM relatively intact but AROM limited due to weakness. Lower Extremity ROM Assessment Within Functional Limits Strength Upper Extremity Strength Assessment Left Impaired Lower Extremity Strength Assessment Left Impaired Hip 3+/5 Knee 3+/5 Ankle 3+/5 Coordination Assessment Gross Coordination Gross Coordination Impaired Assessment Finger to Nose Test Moderate Impairment Pronation/Supination Test Moderate Impairment Foot Tapping Test Moderate Impairment Heel on Johnson Test Moderate Impairment Coordination Comments Some of the slowness and test deficits are related to weakness, but definitely impaired coordination on all tests Sensation Assessment Sensation Light Touch Impaired Comments Sensation Comments Pt denies sensation deficits but only 50-75% for light touch on L side. Muscle Tone Muscle Tone WNL No Muscle Tone Location Left Upper Extremity Type of Tone Hypotonicity Severity of Tone Mild M6 PT-IP Treatment Start: 09/24/18 15:09 Freq: NEEDED Status: Active Protocol: Document 09/30/18 11:15 CLB (Rec: 09/30/18 14:18 CLB [id number]) Physical Therapy Treatment Exercises Exercises Ankle Pumps Other Treatments Other Treatment Performed Gait around cones, stepping over cones CGA-Min A, sit stepping both directions, standing balance: tandem, SLS. M7 PT-IP Assessment and Plan Start: 09/24/18 15:09 Freq: NEEDED Status: Active Protocol: Document 09/30/18 11:15 CLB (Rec: 09/30/18 14:18 CLB [id number]) PT Summary Assessment and Plan Summary Assessment Summary Pt continues to have increased BP with activity. Pt requires CGA for gait with cues for sequencing step/cane. Pt also requires CGA-Min A for all balance activities. Pt is eager to do therapy and is highly motivated to participate. Frequency of Treatment Frequency Of Treatment Twice a Day Treatment Plan Physical Therapy Treatment Plan Bed Mobility Training Transfer Training Gait Training Therapeutic Exercise Balance Retraining Post Op Education Discharge Planning Hot or Cold Pack Neuromuscular Re-ed Coordination Retraining Manual Therapy Other Recommendations and Next Treatment monitor BP, balance, Focus coordination, pregait w.out AD and walking without AD, stairs, LE strengthening. Recommendations To Nursing Amount of Assist Needed 1 Person Assist Discharge Recommendations PT Discharge Recommendations Acute Rehab
--- NOTE | 2018-09-30 14:45 | PT.IPTN ---
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 Therapy Pain Assessment Pain Present Pain Present Pain Reported Location Head Description Pressure M4 PT-IP Mobility and Gait Start: 09/24/18 15:09 Freq: NEEDED Status: Active Protocol: Document 09/30/18 13:00 CLB (Rec: 09/30/18 14:45 CLB [id number]) PT-Bed Mobility Assessment Supine to Sit Supine to Sit Independent Sit to Supine Sit to Supine Independent Scooting Scooting to Edge of Bed Independent Scooting Up and Down in Bed Independent PT-Transfer Assessment Sit to and From Stand Sit to and from Stand Contact Guard Assistance Equipment Transfer Assistive Device Gait Belt Straight Cane Transfers Transfer Destination Bed Transfer Ability Level of Assist Contact Guard Assistance Comments Mobility Comments BP while sitting in bed 113/72 , sitting up on EOB 120/79. Pt is Independent with bed mobility and CGA for sit-stand . Gait Assessment Gait Gait Assistance Required: Contact Guard Assist Distance (Feet) 250 Assistive Devices Assistive Device Gait Belt Straight Cane Gait Deviations General Gait Pattern Ataxic Decreased Stride Length Decreased Feet Clearance Step-to Gait Factors Limiting Gait Function Factors Limiting Gait Function Decreased Sensation Decreased Strength Incoordination Poor Balance Comments Gait Comments Pt with improved gait as pt took direction to slow pace and focues on step/cane sequencing. Stair Climbing Assessment Evaluation Level of Assist On Stairs Contact Guard Assistance 1 Person Assistance Devices Stair Climbing Assistive Devices Left Railing Right Railing Technique/Endurance Stair Climbing Direction Ascend and Descend Stair Climbing Technique Step to Step Number of Steps Climbed 3 Query Text: Stair Climbing Set # Repetitions (reps) 1 Comments Stair Climbing Comments Pt required cues for sequencing steps and CGA. M5 PT-IP Objective Assessments Start: 09/24/18 15:09 Freq: NEEDED Status: Active Protocol: Document 09/25/18 09:47 RS (Rec: 09/25/18 10:34 RS [email or web address]) Orientation Orientation/Cognition Level of Alertness Alert Orientation Name Age Birthday Month Date Year Day of Week Place Situation Language Function Ability Expressive Aphasia Word Finding Difficulties Safety Awareness Decreased Safety Awareness Gross Range of Motion Upper Extremity ROM Assessment Left Impaired Impairments PROM relatively intact but AROM limited due to weakness. Lower Extremity ROM Assessment Within Functional Limits Strength Upper Extremity Strength Assessment Left Impaired Lower Extremity Strength Assessment Left Impaired Hip 3+/5 Knee 3+/5 Ankle 3+/5 Coordination Assessment Gross Coordination Gross Coordination Impaired Assessment Finger to Nose Test Moderate Impairment Pronation/Supination Test Moderate Impairment Foot Tapping Test Moderate Impairment Heel on Johnson Test Moderate Impairment Coordination Comments Some of the slowness and test deficits are related to weakness, but definitely impaired coordination on all tests Sensation Assessment Sensation Light Touch Impaired Comments Sensation Comments Pt denies sensation deficits but only 50-75% for light touch on L side. Muscle Tone Muscle Tone WNL No Muscle Tone Location Left Upper Extremity Type of Tone Hypotonicity Severity of Tone Mild M6 PT-IP Treatment Start: 09/24/18 15:09 Freq: NEEDED Status: Active Protocol: Document 09/30/18 13:00 CLB (Rec: 09/30/18 14:45 CLB [id number]) Physical Therapy Treatment Other Treatments Other Treatment Performed Gait around cones, stepping over cones CGA-Min A, sit stepping both directions, standing balance: tandem, SLS. M7 PT-IP Assessment and Plan Start: 09/24/18 15:09 Freq: NEEDED Status: Active Protocol: Document 09/30/18 13:00 CLB (Rec: 09/30/18 14:45 CLB [id number]) PT Summary Assessment and Plan Summary Assessment Summary BP while sitting in bed 113/72 , sitting up on EOB 120/79, after exercise 144/86 then 128 /89 after 2 minute rest. Pt improved with stability with gait but continues to require CGA. BP limits activity. Pt would benefit from IRF. Goals Bed Mobility Goal Independent Transfer Goal Standby Assistance Contact Guard Assistance Gait Goal Contact Guard Assistance Minimal Assistance Gait Distance 100 Other Goals no AD Days to Meet Goals 4 Frequency of Treatment Frequency Of Treatment Twice a Day Treatment Plan Physical Therapy Treatment Plan Bed Mobility Training Transfer Training Gait Training Therapeutic Exercise Balance Retraining Post Op Education Discharge Planning Hot or Cold Pack Neuromuscular Re-ed Coordination Retraining Manual Therapy Other Recommendations and Next Treatment monitor BP, balance, Focus coordination, pregait w.out AD and walking without AD, stairs, LE strengthening. Recommendations To Nursing Amount of Assist Needed 1 Person Assist Discharge Recommendations PT Discharge Recommendations Acute Rehab
[2018-09-30] MEDS: ATORVASTATIN 20 MG TABLET 40 MG PO (20:59)
--- NOTE | 2018-09-30 21:27 | PC.NURSE ---
Pt continues to be hypertensive and low pulse rate. 147/90, pulse 60. NIH scale of 4, left residential support worker is improving with strength. Pt. ambulated in the [place] with w/ fww with NAC. Pleasant and talkative and eager for discharge.
[2018-10-01] VITALS (10 sets, daily range): BP systolic 109–153; BP diastolic 60–95; PULSE 56–76; RESP 16–18; TEMP 36.3–36.6; O2SAT 96–97
[2018-10-01] MEDS: IBUPROFEN 600 MG TABLET PO (07:48)
[2018-10-01] MEDS: METOPROLOL ER 25 MG TABLET PO (07:49)
[2018-10-01] MEDS: ASPIRIN EC 81 MG TABLET PO (08:01)
[2018-10-01] MEDS: LISINOPRIL 10 MG TABLET PO ×2 (08:01→20:27)
[2018-10-01] MEDS: SODIUM CHLORIDE 0.9% FLUSH 10 ML IV ×2 (08:01→20:28)
[2018-10-01] MEDS: HEPARIN 5,000 UNIT/ML VIAL 5000 UNIT SUBCUT ×2 (08:01→20:27)
--- NOTE | 2018-10-01 08:28 | CM.DPC ---
Addendum entered by Renu Meade LPN 10/01/18 16:08: faxed FINISHED CLOTH EXAMINER notes in at 1500 and have now faxed the OT notes. Spoke with Leann. She states that the Peer/Peer visit was set up for sometime between 1500 and 1600. She expects to have the determination by tomorrow morning. Original Note: Addendum entered by Renu Meade LPN 10/01/18 14:36: Received a call now from Leann/Mireille. She reports that a denial of the INPT authorization had just been received and with an appeal process. She stated that the [facility] community life director will be doing a Peer/Peer appeal with intent to get the denial overturned. She requests today's updated therapy notes and physician progress note. Dr. Norris's note of yesterday is faxed. Dr. Spicer is now on for hospitalist and his note is not yet in but the plan for INPT was discussed in Team Rounds with him today. PT note for today is faxed. OT is currently in session with pt. Both pt and OT/Cely are updated re the status of the auth. Cely will put her notes in as soon as the session is finished. FINISHED CLOTH EXAMINER did see pt today but her note is not yet in and she is currently in OUTPT treatment. Cely is calling her to alert her to need for her notes of today BRIONNA. Leann is updated re what is available to fax and will send rest of the notes to her as soon as received. She will call pt's brother and sister in law to update them as she has been doing this through out the referral process. Will be following closely. Leann notes frustration by their team as this patient is such a great INPT rehab candidate. Original Note: Addendum entered by Renu Meade LPN 10/01/18 10:54: Received a call from Leann. She states she just spoke directly with the person at [facility] reviewing this case and faxed her additional information. She continued to say that she expects a positive response to the rehab request today. Original Note: DCP: continued: case again received and weekend notes reviewed. Placed a call to [facility] to check on the referral status. Leann reports she will be at her office soon and will review the weekend notes including status of the [employer] auth and will call back as soon as she has a good understanding of where all stands. Will check in with pt and also discuss case this morning in Team Rounds.
[2018-10-01] MEDS: ACETAMINOPHEN 325 MG TABLET 650 MG PO (10:56)
--- NOTE | 2018-10-01 10:58 | PT.IPTN ---
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 Therapy Pain Assessment Pain When Pain Assessed At Rest Pain Present Pain Present Denied Pain M4 PT-IP Mobility and Gait Start: 09/24/18 15:09 Freq: NEEDED Status: Active Protocol: Document 10/01/18 10:45 RS (Rec: 10/01/18 10:57 RS [email or web address]) PT-Bed Mobility Assessment Supine to Sit Supine to Sit Independent PT-Transfer Assessment Sit to and From Stand Sit to and from Stand Contact Guard Assistance Equipment Transfer Assistive Device Gait Belt Front Wheeled Walker Transfers Transfer Destination Bed Transfer Ability Level of Assist Contact Guard Assistance Comments Mobility Comments BP 140/88 sitting EOB prior to mobilization, 117/57 sitting EOB at end of session. Pt is mod ind with bed mobility using HOB elevated and rails, will need to practice more from a flat bed. Gait Assessment Gait Gait Assistance Required: Contact Guard Assist Minimum Assistance Distance (Feet) 250 Assistive Devices Assistive Device Gait Belt Front Wheeled Walker Gait Deviations General Gait Pattern Ataxic Decreased Stride Length Decreased Feet Clearance Step-to Gait Factors Limiting Gait Function Factors Limiting Gait Function Decreased Sensation Decreased Strength Incoordination Poor Balance Comments Gait Comments Used FWW today instead of SPC as we were introducing dual task activities while walking. Pt did have more L knee instability during both physical and cognitive dual tasks, a few times requiring min A to prevent fall. Stair Climbing Assessment Evaluation Level of Assist On Stairs Contact Guard Assistance 1 Person Assistance Devices Stair Climbing Assistive Devices Left Railing Right Railing Technique/Endurance Stair Climbing Direction Ascend and Descend Stair Climbing Technique Step to Step Number of Steps Climbed 3 Query Text: Stair Climbing Set # Repetitions (reps) 1 Comments Stair Climbing Comments Pt still requiring cues for sequencing, needing it for each step as he repeatedly tried to lead with the L foot when ascending despite cues to use the R foot. PT-Balance Assessment Comments Other Balance Tests/Deviations/Treatment DGI and Rao items completed : while walking but full/formal test not completed. Pt with quite a meandering path during head turns and with ECS walking forward, however, no major LOB. L knee instability much more prominent with balance activities than with regular walking. M5 PT-IP Objective Assessments Start: 09/24/18 15:09 Freq: NEEDED Status: Active Protocol: Document 09/25/18 09:47 RS (Rec: 09/25/18 10:34 RS [email or web address]) Orientation Orientation/Cognition Level of Alertness Alert Orientation Name Age Birthday Month Date Year Day of Week Place Situation Language Function Ability Expressive Aphasia Word Finding Difficulties Safety Awareness Decreased Safety Awareness Gross Range of Motion Upper Extremity ROM Assessment Left Impaired Impairments PROM relatively intact but AROM limited due to weakness. Lower Extremity ROM Assessment Within Functional Limits Strength Upper Extremity Strength Assessment Left Impaired Lower Extremity Strength Assessment Left Impaired Hip 3+/5 Knee 3+/5 Ankle 3+/5 Coordination Assessment Gross Coordination Gross Coordination Impaired Assessment Finger to Nose Test Moderate Impairment Pronation/Supination Test Moderate Impairment Foot Tapping Test Moderate Impairment Heel on Johnson Test Moderate Impairment Coordination Comments Some of the slowness and test deficits are related to weakness, but definitely impaired coordination on all tests Sensation Assessment Sensation Light Touch Impaired Comments Sensation Comments Pt denies sensation deficits but only 50-75% for light touch on L side. Muscle Tone Muscle Tone WNL No Muscle Tone Location Left Upper Extremity Type of Tone Hypotonicity Severity of Tone Mild M6 PT-IP Treatment Start: 09/24/18 15:09 Freq: NEEDED Status: Active Protocol: Document 10/01/18 10:45 RS (Rec: 10/01/18 10:57 RS [email or web address]) Physical Therapy Treatment Other Treatments Other Treatment Performed LLE forward and lateral step ups onto 1st step of stairs x 10 each, lateral stepping w/ wall rail 2 x 10ft each R/L, tandem walking with single UE support at wall rail 2x10ft forward and 1x10ft backward M7 PT-IP Assessment and Plan Start: 09/24/18 15:09 Freq: NEEDED Status: Active Protocol: Document 10/01/18 10:45 RS (Rec: 10/01/18 10:57 RS [email or web address]) PT Summary Assessment and Plan Potential Rehabilitation Potential Excellent Status of Condition at Evaluation Stable Summary Impairments Strength Balance Coordination Tone Transfers Gait Progress Towards Goals Progressing Toward Goals Assessment Summary While patient continues to make great functional gains, pt still loses balance and is at increased fall risk when confronted with dual tasks/ distractions. Pt is still motivated and has excellent potential for further functional improvement. Pt will greatly benefit from daily skilled therapies at inpatient rehab once medically ready. Frequency of Treatment Frequency Of Treatment Twice a Day Treatment Plan Physical Therapy Treatment Plan Bed Mobility Training Transfer Training Gait Training Therapeutic Exercise Balance Retraining Post Op Education Discharge Planning Hot or Cold Pack Neuromuscular Re-ed Coordination Retraining Manual Therapy Other Recommendations and Next Treatment monitor BP, balance, Focus coordination, pregait w.out AD and walking without AD, stairs, LE strengthening. Recommendations To Nursing Amount of Assist Needed 1 Person Assist Discharge Recommendations PT Discharge Recommendations Acute Rehab
--- NOTE | 2018-10-01 14:28 | ST.IPTN ---
HEEL NAIL RASPER Treatment Note HEEL NAIL RASPER Treatment Note Start: 09/24/18 16:14 Freq: Status: Active Protocol: Document 10/01/18 14:19 TLC (Rec: 10/01/18 14:28 TLC [id number]) Speech Pathology Treatment Note Session Time Visit Start Time 09:40 Visit Stop Time 10:10 Total Visit Minutes 30 Setting Treatment Setting Acute Care Visit Type Note Type Treatment Note Next Note Type Next Note Type Treatment Note General Information General Information Patient in with 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 Subjective Observations/Patient Presentation Patient was seen sitting up in bed. His brother was present. They both remembered me from last week. Chief Complaint(s) Speech Cognitive Objective Short Term Goals Brandon will use appropriate eye contact in conversations without verbal cues. - ongoing Brandon will perform deductive reasoning tasks with out assistance with 80% accuracy. Treatment Activities Patient attempted to complete the deductive reasoning puzzles I gave him on Monday. Two of them were attempted but incomplete. Patient verbalized he had difficulty completing them. With min verbal cues, he was able to complete two of the puzzles. He expressed some improvement with his speech. He continues to have mild impairments in speech coordination and accuracy during diadochokinetic tasks. One phonemic error was observed in conversation. Patient reports his speech is precise when he speaks slowly, but he does have difficulty when he tries to speak at an increased rate. Alliterative sentences, words of increasing complexity and multisyllabic word lists were left in the room for the patient to practice per his request. Eye contact remains reduced. Assessment Patient Response to Treatment Good Rehab Potential Excellent Impairments Identified Cognitive-Linguistic Skills Pragmatic Language Progress Towards Goals Excellent Progress Assessment of Overall Progress Improving Assessment of Improvement Progress is ongoing. He continues to have mild impairments in speech and cognition. He is motivated to return to prior level. He will be an excellent candidate for rehab. Reviewed with Patient Goals Progress Being Made Patient/Caregiver Understanding Good Plan Therapy Recommendations Continue with Current Program
--- NOTE | 2018-10-01 15:19 | OT.IP.TRT ---
Current Diagnoses Cerebral infarction, unspecified (09/24/18) Occupational Therapy Treatment Note M2 OT-IP Current Condition Start: 09/25/18 15:53 Freq: Status: Active Protocol: Document 09/25/18 15:06 PJM (Rec: 09/25/18 16:24 PJM [id number]) Occupational Therapy Current Condition Current Condition Evaluation Date 09/25/18 Treatment Diagnosis decreased LUE function, decreased indep in all self care,mobility s/p stroke Diagnosis Onset Date 09/24/18 Post Operative Precautions Other Precautions fall risk, Lhemiparesis, LUE neglect Weight Bearing Status Weight Bearing Status Weight Bear as Tolerated M3 OT- IP Subjective and Pain Start: 09/25/18 15:53 Freq: Status: Active Protocol: Document 10/01/18 14:55 [facility] (Rec: 10/01/18 15:18 [facility] [id number]) OT- Subjective Occupational Therapy Visit Type Type Treatment Note Visit Start Time 14:15 Visit Stop Time 14:55 Total Visit Minutes 40 Occupational Therapy Visit Comments Patient Comments Pt very motivated to go to acute rehab. OT Pain Assessment Pain When Pain Assessed After Treatment Pain Present Pain Present Denied Pain M4 OT- IP ADL's Start: 09/25/18 15:53 Freq: Status: Active Protocol: Document 10/01/18 14:55 [facility] (Rec: 10/01/18 15:18 [facility] [id number]) OT ADL-Grooming Comments OT Grooming Comments Pt able to use left when washcloth in place and support of right hand on left elbow to be able to wash his face with left hand. OT ADL-Oral Care Comments Oral Care Comments Today pt states able to use left hand to hold toothpaste. M5 OT- IP IADL's Start: 09/25/18 15:53 Freq: Status: Active Protocol: Document 09/25/18 15:06 PJM (Rec: 09/25/18 16:24 PJM [id number]) OT-Instrumental Activities of Daily Living Deficits IADL Deficits Identified Deficits Home Safety Awareness Awareness of Need for Assistance at Home Good Awareness Medication Management Medication Management Comments pt currently needs assist due to unilateral function and inability to manage containers Money Management Money Management Comments to be assessed Meal Preparation Meal Preparation Comments pt currently needs assist due to decreased mobility and non functional L hand Customs Officer Customs Officer Comments pt currently needs assist due to decreased mobility and non functional L hand Driving Driving Comments needs further assessment when mobility improves M6 OT- IP Functional Cognition Start: 09/25/18 15:53 Freq: Status: Active Protocol: Document 10/01/18 14:55 [facility] (Rec: 10/01/18 15:18 [facility] [id number]) Cognitive Factors Limiting Selfcare Function Cognitive Ability Level of Alertness Alert Patient Orientation Name Age Birthday Month Date Year Day of Week Place Situation Attention Span Ability Capable of Focused Attention Capable of Sustained Attention Ability to Follow Commands Able to Follow One Step Commands Able to Follow Multi-Step Commands Memory Description No Deficits Noted Safety Awareness Underestimates Need for Assistance Cognitive Comments Cognitive Assessment Comments Pt states has good understanding to call for assist for needs. Pt able to add fractions, measure sheet of paper with tape measure and able to problem solve how to measure as left hand not able to coordinate to to hold tape measure. Pt able to use left hand to keep tape measure from moving instead. M7 OT- IP Mobility and Balance Start: 09/25/18 15:53 Freq: Status: Active Protocol: Document 10/01/18 14:55 [facility] (Rec: 10/01/18 15:18 [facility] [id number]) OT-Transfer Assessment Sit to and From Stand Sit to and from Stand Contact Guard Assistance 1 Person Assistance Transfers Transfer Ability Contact Guard Assistance 1 Person Assistance Technique Transfer Destination Bed Toilet Devices Transfer Assistive Devices Gait Belt Front Wheeled Walker Comments Mobility Comments Pt tends to reach for FWW to stand. Educated to push through open flat left hand on the bed to help to stand. When up on FWW, pt needing NO assist to helped support at elbow so able to put equal amount of weight through both arms as currently have more weight through right side. While sitting down to toilet heavily relies on grab bar and right arm to help control descent to toilet . OT- Balance Assessment Sitting Balance and Reactions Static Sitting Balance Ability Good Dynamic Sitting Balance Ability Good Standing Balance and Reactions Static Standing Balance Ability Fair Dynamic Standing Balance Ability Fair M8 OT- IP Objective Assessments Start: 09/25/18 15:53 Freq: Status: Active Protocol: Document 10/01/18 14:55 [facility] (Rec: 10/01/18 15:18 [facility] [id number]) OT Gross Range of Motion Upper Extremity Range of Motion Assessment Left Impaired ROM Impairments AAROM WNL, AROM limited by weakness. Pt tends to compensate by shoulder elevation due to left arm weakness. OT Strength Upper Extremity Strength Assessment Left Impaired Comments Strength Comments Improved extension of fingers against gravity, however 4th and 5th digit not able to fully extend all the way yet. 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 OT-Muscle Tone Assessment Muscle Tone Location Left Upper Extremity Type of Tone Flexor Severity of Tone Mild Jah Grade Scale Grade 1 M9 OT- IP Assessment and Plan Start: 09/25/18 15:53 Freq: Status: Active Protocol: Document 10/01/18 14:55 [facility] (Rec: 10/01/18 15:18 [facility] [id number]) OT Summary Assessment and Plan Potential Rehabilitation Potential Excellent Summary OT Impairments Pain Range of Motion Strength Balance Coordination Tone Functional Mobility Dressing Toileting Bathing Toilet Transfers Shower Transfers Progress Towards Goals Progressing Toward Goals Assessment Summary Pt continues to make progress with functional use of left hand. Now starting to be able to incorporate use of ADL needs. 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 Pt has excellent rehab potential and good sensation through left UE and very motivated to get better. Goals Grooming Goal Minimal Assistance Dressing Goal Minimal Assistance Toileting Goal Minimal Assistance Bathing Goal Moderate Assistance Toilet Transfer Goal Contact Guard Assistance Shower Transfer Goal Minimal Assistance Patient/Caregiver Education Goal Demonstrate Energy Conservation and Pacing OT-Other Goals All goals upgraded to incorporate use of left hand. Days to Meet Goals 7 Frequency of Treatment Frequency Of Treatment Once a Day Treatment Plan OT Treatment Plan ADL Training Functional Mobility Neuromuscular Re-education Patient/Family Education Discharge Planning Discharge Recommendations OT Discharge Recommendations Acute Rehab Home Equipment Needs to be determined in next rehab setting
--- NOTE | 2018-10-01 17:03 | PT.IPTN ---
Current Diagnoses Cerebral infarction, unspecified (09/24/18) Physical Therapy Treatment Note M2 PT-IP Current Condition Start: 09/24/18 15:09 Freq: NEEDED Status: Active Protocol: Document 09/25/18 09:47 RS (Rec: 09/25/18 09:53 RS [id number]) Physical Therapy Current Condition Current Condition Evaluation Date 09/25/18 Treatment Diagnosis R pontine ischemic infarct - impaired mobility Onset Date 09/24/18 Precautions Other Precautions high fall risk M3 PT-IP Subjective Start: 09/24/18 15:09 Freq: NEEDED Status: Active Protocol: Document 10/01/18 16:10 LJ (Rec: 10/01/18 17:03 LJ [id number]) Subjective Physical Therapy Visit Type Type Treatment Note Visit Start Time 16:09 Visit Stop Time 16:32 Total Visit Minutes 23 Physical Therapy Visit Comments Patient Comments Pt willing to get out of bed to ambulate and exercise. States he has a mild headache M4 PT-IP Mobility and Gait Start: 09/24/18 15:09 Freq: NEEDED Status: Active Protocol: Document 10/01/18 16:10 LJ (Rec: 10/01/18 17:03 LJ [id number]) PT-Bed Mobility Assessment Supine to Sit Supine to Sit Independent Scooting Scooting to Edge of Bed Independent Scooting Up and Down in Bed Independent PT-Transfer Assessment Sit to and From Stand Sit to and from Stand Standby Assistance Equipment Transfer Assistive Device Gait Belt Front Wheeled Walker Transfers Transfer Destination Bed Transfer Ability Level of Assist Standby Assistance Comments Mobility Comments Pt able to mobilize in bed SBA . Performed 10 sit<>stand from EOB w/o use of walker or UEs. Gait Assessment Gait Gait Assistance Required: Contact Guard Assist Minimum Assistance Distance (Feet) 430 Assistive Devices Assistive Device Gait Belt Front Wheeled Walker Gait Deviations General Gait Pattern Ataxic Decreased Stride Length Decreased Feet Clearance Factors Limiting Gait Function Factors Limiting Gait Function Decreased Sensation Decreased Strength Incoordination Poor Balance Comments Gait Comments Pt CGA with ambulation for safety using FWW. Able to maintain proper posture with verbal cueing. Demonstrates awareness of obstacles in hallway and avoids them appropriately. Pt performed backward stepping x 5 in room w/o LOB. Cueing for feet spacing to be wider. Able to transfer weight and stand on single leg unilaterally at counter with handhold. RLE shows slight buckling and unsteadiness occasionally. M5 PT-IP Objective Assessments Start: 09/24/18 15:09 Freq: NEEDED Status: Active Protocol: Document 09/25/18 09:47 RS (Rec: 09/25/18 10:34 RS [id number]) Orientation Orientation/Cognition Level of Alertness Alert Orientation Name Age Birthday Month Date Year Day of Week Place Situation Language Function Ability Expressive Aphasia Word Finding Difficulties Safety Awareness Decreased Safety Awareness Gross Range of Motion Upper Extremity ROM Assessment Left Impaired Impairments PROM relatively intact but AROM limited due to weakness. Lower Extremity ROM Assessment Within Functional Limits Strength Upper Extremity Strength Assessment Left Impaired Lower Extremity Strength Assessment Left Impaired Hip 3+/5 Knee 3+/5 Ankle 3+/5 Coordination Assessment Gross Coordination Gross Coordination Impaired Assessment Finger to Nose Test Moderate Impairment Pronation/Supination Test Moderate Impairment Foot Tapping Test Moderate Impairment Heel on Johnson Test Moderate Impairment Coordination Comments Some of the slowness and test deficits are related to weakness, but definitely impaired coordination on all tests Sensation Assessment Sensation Light Touch Impaired Comments Sensation Comments Pt denies sensation deficits but only 50-75% for light touch on L side. Muscle Tone Muscle Tone WNL No Muscle Tone Location Left Upper Extremity Type of Tone Hypotonicity Severity of Tone Mild M6 PT-IP Treatment Start: 09/24/18 15:09 Freq: NEEDED Status: Active Protocol: Document 10/01/18 16:10 (Rec: 10/01/18 17:03 [id number]) Physical Therapy Treatment Exercises Exercises Gluteal Sets Education Education Provided Safety Other Treatments Other Treatment Performed mini-squats, bilat hip abd, weight shifting, SL stance, marching in place M7 PT-IP Assessment and Plan Start: 09/24/18 15:09 Freq: NEEDED Status: Active Protocol: Document 10/01/18 16:10 (Rec: 10/01/18 17:03 [id number]) PT Summary Assessment and Plan Potential Rehabilitation Potential Excellent Status of Condition at Evaluation Stable Summary Impairments Strength Balance Coordination Tone Transfers Gait Progress Towards Goals Progressing Toward Goals Assessment Summary While patient continues to make great functional gains, pt still loses balance and is at increased fall risk when confronted with dual tasks/ distractions. Pt is still motivated and has excellent potential for further functional improvement. Pt will greatly benefit from daily skilled therapies at inpatient rehab once medically ready. Goals Bed Mobility Goal Independent Transfer Goal Standby Assistance Contact Guard Assistance Gait Goal Contact Guard Assistance Minimal Assistance Gait Distance 100 Other Goals no AD Days to Meet Goals 4 Frequency of Treatment Frequency Of Treatment Twice a Day Treatment Plan Physical Therapy Treatment Plan Bed Mobility Training Transfer Training Gait Training Therapeutic Exercise Balance Retraining Post Op Education Discharge Planning Hot or Cold Pack Neuromuscular Re-ed Coordination Retraining Manual Therapy Other Recommendations and Next Treatment monitor BP, balance, Focus coordination, pregait w.out AD and walking without AD, stairs, LE strengthening. Recommendations To Nursing Amount of Assist Needed 1 Person Assist Discharge Recommendations PT Discharge Recommendations Acute Rehab
--- NOTE | 2018-10-01 17:16 | PM.PN.1 ---
Subjective Date Patient Seen: 10/01/18 Interval history: Patient is a 62-year-old male right-handed male admitted with acute right pontine CVA. Gait unsteady and PT and OT recommending inpatient rehab. Speech remains mildly slurred. Left hand weakness is improving. We are awaiting insurance authorization from [employer] to get him to inpatient rehab. 1. Acute right pontine CVA, present on admission. Active. -Patient presented with left-sided weakness, facial droop, and expressive aphasia with slight slurring of speech that is improving steadily. -CT brain without contrast and CTA did not demonstrate any acute intracranial abnormalities. -MR stroke protocol demonstrated acute right pontine CVA. -Echocardiogram revelaed EF 50% with trace mitral regurgitation. No interatrial shunting. -PT/OT/ST evaluation: continue to recommend acute inpatient rehab. -Continue aspirin 81 mg daily and atorvastatin 40 mg daily at bedtime. -continue metoprolol and lisinopril for BP control. 2. Hypertension, chronic -he became orthostatic on carvedilol a few days ago but is tolerating metoprolol/lisinopril at this time with good BP control. -mild systolic dysfunction on echo with LVEF 50% 3. Hyperlipidemia, chronic -Stable -Continue atorvastatin 40 mg daily at bedtime. 4. Probable obstructive sleep apnea, chronic, present on admission. Stable. -Patient would benefit from sleep study and CPAP. Dispo: Acute Inpatient Rehab facility Exam Vital Signs (past 8 hours): - 10/01/18 11:35 10/01/18 15:20 Temperature 97.6 F 97.8 F Pulse Rate 56 L 60 Respiratory Rate 18 18 Blood Pressure 153/95 H 128/77 Pulse Oximetry 97 96 Oxygen Delivery Method Room Air Oxygen Flow Rate 0 Objective Labs Result Diagrams: 09/29/18 05:56 09/29/18 05:56 Quality VTE Deep Vein Thrombosis/Pulmonary Embolism Present on Admission: No
[2018-10-01] MEDS: ATORVASTATIN 20 MG TABLET 40 MG PO (20:27)
[2018-10-02] VITALS (11 sets, daily range): BP systolic 100–154; BP diastolic 48–98; PULSE 56–84; RESP 14–16; TEMP 36.2–37; O2SAT 94–98
--- NOTE | 2018-10-02 02:10 | PC.NURSE ---
2300- NIH assessment complete; pt scored a 2 for minor facial droop & slurred speech. A+Ox4; able to state needs. Tele in place reading SB at this time. Denies pain. 0600- Up to bathroom SBA w/ FWW; states he is feeling stronger this AM.
[2018-10-02] MEDS: ACETAMINOPHEN 325 MG TABLET 650 MG PO ×2 (08:25→21:03)
--- NOTE | 2018-10-02 08:35 | CM.DPC ---
Addendum entered by Renu Meade LPN 10/02/18 17:04: Just spoke by phone with pt's sister in law and primary coordinator in family of his home POC. She reports she was not able to find a PCP and says the hospital cannot safely release pt without this in place. Either she or her Gregory will be here tomorrow at 0800. Have left a now for Penny at [facility] Provider assist line to followup on what she found in her search for an accepting clinic and provider for pt. They also wish to discuss the medical plan of care with the hospitalist as they have many questions and state the RNs on the floor have been helpful in giving information but they wish to have more clarity from the physician. She understands that [facility] will be tomorrow at 0930 and CM Cortney, taking over as dc senior planner will be able to discuss this at that time with the physician and the team. Pt says that his brother was able to go to [facility] today and get equipment that was recommended by PT and OT. Cinthia is also given specifics of RN Luann Zuniga/[facility] contact info and she will contact her for ongoing assist in the home setting. P: home with family and OUTPT Therapy when a safe and appropriate d/c plan is set up and all the details of the plan are in place. Follow very closely with family. Original Note: Addendum entered by Renu Meade LPN 10/02/18 16:29: Luann from [facility]/Transitions of care did return the call. She will be following up with pt when he returns to the home setting of his family to help with any needs that may arise. Will make sure Cinthia has her contact number as she spoke only to the pt. Original Note: Addendum entered by Renu Meade LPN 10/02/18 14:52: Sherman back via from [facility]. She has confirmed with [facility] that the hospitalist can make the initial referral for HH orders. If more is needed beyond the visits as per below the PCP will have to request this. Have asked her now for the specifics of what she will need to get this scheduled. RONNIEPlanhenry for tomorrow can follow up with her at her ext: [phone]. Will update pt and family before leaving today. Discussed with OT Cely. She will be in tomorrow to work with pt before he leaves. Original Note: Addendum entered by Renu Meade LPN 10/02/18 11:27: Spoke with Ray/ OUTPT Therapy dept after she discussed case with Kerry. She reports they do accept [facility] nieto the orders need to come from a PCP. She is updated re the lack currently of same. She agrees to contact [facility] to see if the hospitalist can start the referral. She states [facility] allow: 12 PT 12 OT 6 PANEL MAKER visits Will update pt and brother once have final word on the PCP/order piece. Original Note: Addendum entered by Renu Meade LPN 10/02/18 10:38: Have left a vm now for [facility] RN Luann Zuniga: cell: [phone] and requested assist with this sudden change in the d/c dispo plan. Original Note: Addendum entered by Renu Meade LPN 10/02/18 10:31: After discussion with therapists, have put a call into the INPT/OUTPT director: Kerry to see is she can assist in facilitation of the OUTPT therapy. Original Note: Addendum entered by Renu Meade LPN 10/02/18 10:17: Have met in followup with pt and his brother Gregory. Have discussed case in Team Rounds. Dr. Spicer agrees that pt is stable for d/c pending a safe plan. He advises to put this in place today with a d/c to home setting and OUTPT Therapy tomorrow. Gregory notes that pt has no PCP. They initially hoped for [facility]. A call to this clinic reveals that they do not take any managed medicaid plans. Gregory is given the [facility] number [phone] as they will assist pt find a PCP that will take this insurance company. Dr. Spicer is aware, says an appt in a couple of weeks would be ok for pt. Gregory wonders about coverage with the insurance at the OUTPT therapy department. Put a call into Sheryl ex [phone] as she is the listed project management it specialist. vm left. Pt will need PT/OT and PANEL MAKER followup and DME for the home setting. Will defer to PT and OT for specifics of the DME. Pt would like to get this from [facility] lending/dme area. Will be following. Original Note: DCP: continued: Spoke with Leann/Mireille this morning. She reports the [employer] appeal resulted in a determination that [facility] would not authorize the INPT rehab treatment. She noted no other recommendations from the insurance company were offered. Leann is notifying the pt and family of the determination this morning. Therapy team is updated and at this point plan to meet later today with pt, family and therapists to determine the next step. SNF might be an option but would again need auth. OUTPT therapy and home with family support is more likely but will have to determine with the care team and pt/family. Leann expresses the frustration her Prov team feels at this denial of a pt they hoped to assist in his rehab process.
[2018-10-02] MEDS: ASPIRIN EC 81 MG TABLET PO (09:36)
[2018-10-02] MEDS: LISINOPRIL 10 MG TABLET PO ×2 (09:37→20:45)
[2018-10-02] MEDS: METOPROLOL ER 25 MG TABLET PO (09:38)
[2018-10-02] MEDS: HEPARIN 5,000 UNIT/ML VIAL 5000 UNIT SUBCUT ×2 (09:38→20:46)
[2018-10-02] MEDS: DOCUSATE 100 MG CAPSULE PO (09:40)
[2018-10-02] MEDS: SODIUM CHLORIDE 0.9% FLUSH 10 ML IV ×2 (09:42→20:46)
--- NOTE | 2018-10-02 10:52 | PC.NURSE ---
Darinel is alert and oriented. He can nearly recite the NIH Stroke scale pictures from memory and puts on a [place] accent to read and pronounce the words. Slight slurring of words after speaking for some time, otherwise crisp speech. He is moving about but does display some L hand neglect, for example, had to be coached to use L hand to unroll napkin and retrieve utensils. Eating and swallowing w/ out problems. VSS.
--- NOTE | 2018-10-02 14:06 | OT.IP.TRT ---
Current Diagnoses Cerebral infarction, unspecified (09/24/18) Occupational Therapy Treatment Note M2 OT-IP Current Condition Start: 09/25/18 15:53 Freq: Status: Active Protocol: Document 09/25/18 15:06 [facility] (Rec: 09/25/18 16:24 [facility] [id number]) Occupational Therapy Current Condition Current Condition Evaluation Date 09/25/18 Treatment Diagnosis decreased LUE function, decreased indep in all self care,mobility s/p stroke Diagnosis Onset Date 09/24/18 Post Operative Precautions Other Precautions fall risk, Lhemiparesis, LUE neglect Weight Bearing Status Weight Bearing Status Weight Bear as Tolerated M3 OT- IP Subjective and Pain Start: 09/25/18 15:53 Freq: Status: Active Protocol: Document 10/02/18 13:09 [facility] (Rec: 10/02/18 13:36 [facility] [id number]) OT- Subjective Occupational Therapy Visit Type Type Treatment Note Visit Start Time 10:20 Visit Stop Time 11:20 Total Visit Minutes 60 Occupational Therapy Visit Comments Patient Comments Pt agreeable to get up for therapy. Pt's brother present for family training and able to discuss equipment needs. OT Pain Assessment Pain When Pain Assessed At Rest Pain Present Pain Present Denied Pain M4 OT- IP ADL's Start: 09/25/18 15:53 Freq: Status: Active Protocol: Document 10/02/18 13:09 [facility] (Rec: 10/02/18 13:36 [facility] [id number]) OT ADL-Toileting General Evaluation Toileting Ability Standby Assistance Devices Toileting Assistive Devices Grab Bars Comments OT Toileting Comments Pt able to do all toileting needs of urination while sitting on commode. Educated brother to initially be there with pt as get s little impulsive and at time has loss of balance. Pt's brother states there is a cabinet on the right and may also be able to install a grab bar. Pt heavily relies on grab bar in the bathroom here in the hospital. M5 OT- IP IADL's Start: 09/25/18 15:53 Freq: Status: Active Protocol: Document 09/25/18 15:06 [facility] (Rec: 09/25/18 16:24 [facility] [id number]) OT-Instrumental Activities of Daily Living Deficits IADL Deficits Identified Deficits Home Safety Awareness Awareness of Need for Assistance at Home Good Awareness Medication Management Medication Management Comments pt currently needs assist due to unilateral function and inability to manage containers Money Management Money Management Comments to be assessed Meal Preparation Meal Preparation Comments pt currently needs assist due to decreased mobility and non functional L hand Upholstery Department Supervisor Upholstery Department Supervisor Comments pt currently needs assist due to decreased mobility and non functional L hand Driving Driving Comments needs further assessment when mobility improves M6 OT- IP Functional Cognition Start: 09/25/18 15:53 Freq: Status: Active Protocol: Document 10/02/18 13:09 [facility] (Rec: 10/02/18 13:36 [facility] [id number]) Cognitive Factors Limiting Selfcare Function Cognitive Ability Level of Alertness Alert Patient Orientation Name Age Birthday Month Date Year Day of Week Place Situation Attention Span Ability Capable of Focused Attention Capable of Sustained Attention Ability to Follow Commands Able to Follow One Step Commands Able to Follow Multi-Step Commands Memory Description No Deficits Noted Safety Awareness Underestimates Need for Assistance Cognitive Comments Cognitive Assessment Comments Noted increased neglect of left arm. Pt needing vc to remove call light wrapped around his left hand, vc to bring left arm forwards while getting up from the bed. M7 OT- IP Mobility and Balance Start: 09/25/18 15:53 Freq: Status: Active Protocol: Document 10/02/18 13:09 [facility] (Rec: 10/02/18 13:36 [facility] [id number]) OT- Bed Mobility Assessment Rolling Type of Rolling Roll to Right Level of Assistance Standby Assistance Supine to Sit Supine to Sit Assist Standby Assistance Sit to Supine Sit to Supine Assist Standby Assistance Scooting Scooting to Edge of Bed Standby Assistance OT-Transfer Assessment Comments Mobility Comments VC to incorporate left hand/ arm to scoot forwards in the bed, and use left hand to pull sheet off from his lap. Pt safer to use FWW, however still had loss of blance as turning too quickly. Therefore recommended to pt's brother if getting up to the bathroom initially to supervise pt or use of urinal if needed. OT- Balance Assessment Sitting Balance and Reactions Static Sitting Balance Ability Good Dynamic Sitting Balance Ability Good Standing Balance and Reactions Static Standing Balance Ability Fair Dynamic Standing Balance Ability Fair M8 OT- IP Objective Assessments Start: 09/25/18 15:53 Freq: Status: Active Protocol: Document 10/02/18 13:09 [facility] (Rec: 10/02/18 13:36 [facility] [id number]) OT Gross Range of Motion Upper Extremity Range of Motion Assessment Left Impaired ROM Impairments AROM also limitied by tightness Left internal rotators in addition to weakness. OT Strength Upper Extremity Strength Assessment Left Impaired Comments Strength Comments Pt now able to touch left thumb to left 2nd, 3rd, and now 4th digit. Pt can actively extend fingers all the way especially after stretching via weight beargin through left hand with shoulders retracted and arm supinated. OT- Coordination Assessment Comments Coordination Comments Pt able to grasp bedding to help pull after from his body with left hand. Pt able to grasp tissue form the box as well today. M9 OT- IP Assessment and Plan Start: 09/25/18 15:53 Freq: Status: Active Protocol: Document 10/02/18 13:09 [facility] (Rec: 10/02/18 13:36 [facility] [email or web address]) OT Summary Assessment and Plan Potential Rehabilitation Potential Excellent Summary OT Impairments Pain Range of Motion Strength Balance Coordination Tone Functional Mobility Dressing Toileting Bathing Toilet Transfers Shower Transfers Progress Towards Goals Progressing Toward Goals Assessment Summary Pt continues to be excellent candidate for acute rehab , however pt's insurance has denied the request and now looking into either SNF versus home with brother and outpt OT/PT/[employer] 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 Pt would benefit from skilled rehab as progressing well would be able to be seen daily for therapy needs. Goals Grooming Goal Minimal Assistance Dressing Goal Minimal Assistance Toileting Goal Minimal Assistance Bathing Goal Moderate Assistance Toilet Transfer Goal Contact Guard Assistance Shower Transfer Goal Minimal Assistance Patient/Caregiver Education Goal Demonstrate Energy Conservation and Pacing OT-Other Goals All goals upgraded to incorporate use of left hand. Days to Meet Goals 7 Frequency of Treatment Frequency Of Treatment Once a Day Treatment Plan OT Treatment Plan ADL Training Functional Mobility Neuromuscular Re-education Patient/Family Education Discharge Planning Other Treatment Recommendations and Next Pt to be able to recall Treatment Focus stretches for left hand. Discharge Recommendations OT Discharge Recommendations Home with 20/02 Assist SNF Rehab Acute Rehab Outpatient PT Other Discharge Recommendations if having to go to outpt- OT/ PT/[employer] 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
--- NOTE | 2018-10-02 14:39 | ST.IPTN ---
[facility] Treatment Note [facility] Treatment Note Start: 09/24/18 16:14 Freq: Status: Active Protocol: Document 10/02/18 14:29 [facility] (Rec: 10/02/18 14:39 [facility] [id number]) Speech Pathology Treatment Note Session Time Visit Start Time 11:50 Visit Stop Time 12:10 Total Visit Minutes 20 Setting Treatment Setting Acute Care Visit Type Note Type Treatment Note Next Note Type Next Note Type Treatment Note General Information General Information Patient in with 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 Subjective Observations/Patient Presentation Patient was seen sitting up in bed preparing to eat lunch. Per nursing, patient ate well during breakfast but required a verbal cue on one occasion to slow down. Chief Complaint(s) Speech Cognitive Objective Short Term Goals Brandon will use appropriate eye contact in conversations without verbal cues. - ongoing Brandon will perform deductive reasoning tasks with out assistance with 80% accuracy. - needs min verbal cues Treatment Activities No cognitive therapy provided on this date as patient was seen during lunch time. Patient had not completed deductive reasoning puzzle I left in his room yesterday. Observation of patient during meal revealed he is able to self-feed, self-monitor and implement strategies as needed to consume a meal safely. During conversation, he was noted to have difficulty with topic maintenance and sustained attention often drifting from the topic or beginning to talk about something related but not answering the question asked. Assessment Patient Response to Treatment Good Rehab Potential Excellent Impairments Identified Cognitive-Linguistic Skills Pragmatic Language Progress Towards Goals Excellent Progress Assessment of Overall Progress Improving Assessment of Improvement Great progress. No dysphagia observed during meal. Insurance denied inpatient rehab, recommend outpatient ST upon d/c home vs. SNF. Reviewed with Patient Goals Progress Being Made Patient/Caregiver Understanding Good Plan Therapy Recommendations Continue with Current Program
--- NOTE | 2018-10-02 15:57 | PT.IPTN ---
Current Diagnoses Cerebral infarction, unspecified (09/24/18) Physical Therapy Treatment Note M2 PT-IP Current Condition Start: 09/24/18 15:09 Freq: NEEDED Status: Active Protocol: Document 09/25/18 09:47 RS (Rec: 09/25/18 09:53 RS [id number]) Physical Therapy Current Condition Current Condition Evaluation Date 09/25/18 Treatment Diagnosis R pontine ischemic infarct - impaired mobility Onset Date 09/24/18 Precautions Other Precautions high fall risk M3 PT-IP Subjective Start: 09/24/18 15:09 Freq: NEEDED Status: Active Protocol: Document 10/02/18 15:10 [facility] (Rec: 10/02/18 15:57 [facility] [id number]) Subjective Physical Therapy Visit Type Type Treatment Note Visit Start Time 15:10 Visit Stop Time 15:35 Total Visit Minutes 25 Number of COUPLER Visits 2 Physical Therapy Visit Comments Patient Comments Pt agreeable to do therapy. M4 PT-IP Mobility and Gait Start: 09/24/18 15:09 Freq: NEEDED Status: Active Protocol: Document 10/02/18 15:10 [facility] (Rec: 10/02/18 15:57 [facility] [id number]) PT-Bed Mobility Assessment Supine to Sit Supine to Sit Independent Scooting Scooting to Edge of Bed Independent Scooting Up and Down in Bed Independent PT-Transfer Assessment Sit to and From Stand Sit to and from Stand Standby Assistance Equipment Transfer Assistive Device Gait Belt Straight Cane Front Wheeled Walker Transfers Transfer Destination Bed Transfer Ability Level of Assist Standby Assistance Comments Mobility Comments BP 147/84 sitting on EOB. Pt stood at counter for ther ex c /o dizziness pt returned to sitting on EOB BP 130/85. Gait Assessment Gait Gait Assistance Required: Contact Guard Assist Minimum Assistance Distance (Feet) 250 Assistive Devices Assistive Device Gait Belt Front Wheeled Walker Gait Deviations General Gait Pattern Ataxic Decreased Stride Length Decreased Feet Clearance Factors Limiting Gait Function Factors Limiting Gait Function Decreased Sensation Decreased Strength Incoordination Poor Balance Comments Gait Comments Pt ambulated in ceballos ~250ft with SPC CGA with cues for step/cane sequencing. M5 PT-IP Objective Assessments Start: 09/24/18 15:09 Freq: NEEDED Status: Active Protocol: Document 09/25/18 09:47 RS (Rec: 09/25/18 10:34 [facility] [id number]) Orientation Orientation/Cognition Level of Alertness Alert Orientation Name Age Birthday Month Date Year Day of Week Place Situation Language Function Ability Expressive Aphasia Word Finding Difficulties Safety Awareness Decreased Safety Awareness Gross Range of Motion Upper Extremity ROM Assessment Left Impaired Impairments PROM relatively intact but AROM limited due to weakness. Lower Extremity ROM Assessment Within Functional Limits Strength Upper Extremity Strength Assessment Left Impaired Lower Extremity Strength Assessment Left Impaired Hip 3+/5 Knee 3+/5 Ankle 3+/5 Coordination Assessment Gross Coordination Gross Coordination Impaired Assessment Finger to Nose Test Moderate Impairment Pronation/Supination Test Moderate Impairment Foot Tapping Test Moderate Impairment Heel on Johnson Test Moderate Impairment Coordination Comments Some of the slowness and test deficits are related to weakness, but definitely impaired coordination on all tests Sensation Assessment Sensation Light Touch Impaired Comments Sensation Comments Pt denies sensation deficits but only 50-75% for light touch on L side. Muscle Tone Muscle Tone WNL No Muscle Tone Location Left Upper Extremity Type of Tone Hypotonicity Severity of Tone Mild M6 PT-IP Treatment Start: 09/24/18 15:09 Freq: NEEDED Status: Active Protocol: Document 10/02/18 15:10 [facility] (Rec: 10/02/18 15:57 [facility] [id number]) Physical Therapy Treatment Exercises Exercises Gluteal Sets Quad Sets Education Education Provided Safety Other Treatments Other Treatment Performed mini-squats, weight shifting, SLS. M7 PT-IP Assessment and Plan Start: 09/24/18 15:09 Freq: NEEDED Status: Active Protocol: Document 10/02/18 15:10 [facility] (Rec: 10/02/18 15:57 [facility] [id number]) PT Summary Assessment and Plan Summary Impairments Strength Balance Coordination Tone Transfers Gait Progress Towards Goals Progressing Toward Goals Assessment Summary Pt is IND/SBA for bed mobility and CGA for transfers and gait. BP 147/84 sitting on EOB . Pt stood at counter for ther ex c/o dizziness pt returned to sitting on EOB BP 130/85. After ambulating ~250ft pt BP 143/94. Goals Bed Mobility Goal Independent Transfer Goal Standby Assistance Contact Guard Assistance Gait Goal Contact Guard Assistance Minimal Assistance Gait Distance 100 Other Goals no AD Days to Meet Goals 4 Frequency of Treatment Frequency Of Treatment Twice a Day Treatment Plan Physical Therapy Treatment Plan Bed Mobility Training Transfer Training Gait Training Therapeutic Exercise Balance Retraining Post Op Education Discharge Planning Hot or Cold Pack Neuromuscular Re-ed Coordination Retraining Manual Therapy Other Recommendations and Next Treatment monitor BP, balance, Focus coordination, pregait w.out AD and walking without AD, stairs, LE strengthening. Recommendations To Nursing Amount of Assist Needed 1 Person Assist Discharge Recommendations PT Discharge Recommendations Acute Rehab
--- NOTE | 2018-10-02 19:43 | PM.PN.1 ---
Subjective Date Patient Seen: 10/02/18 Interval history: Patient is a 62-year-old male right-handed male admitted with acute right pontine CVA. Speech remains mildly slurred. Left hand weakness is improving. Gait is improving. Exam Vital Signs (past 8 hours): - 10/02/18 13:30 10/02/18 15:00 10/02/18 15:47 Temperature 97.8 F 98.6 F Pulse Rate 70 64 Respiratory Rate 16 15 Blood Pressure 139/78 147/84 H Pulse Oximetry 97 10/02/18 16:03 Temperature Pulse Rate Respiratory Rate Blood Pressure Pulse Oximetry 98 Oxygen Delivery Method Room Air Oxygen Flow Rate 0 Narrative Exam Narrative: General: Alert, pleasant and in no acute distress Neurological: Slight left facial droop, slight aphasia but easily understood, left hand weak but can't seed cone picker cell phone, left leg with difficulty heel to han, gait much improved walking with contact guard assist Objective Labs Result Diagrams: 09/29/18 05:56 09/29/18 05:56 Assessment & Plan Assessment & Plan narrative: Patient is a 62-year-old male right-handed male admitted with acute right pontine CVA. 1. Acute right pontine CVA, present on admission. Active. -Patient presented with left-sided weakness, facial droop, and expressive aphasia with slight slurring of speech that is improving steadily. -CT brain without contrast and CTA did not demonstrate any acute intracranial abnormalities. -MR stroke protocol demonstrated acute right pontine CVA. -Echocardiogram revelaed EF 50% with trace mitral regurgitation. No interatrial shunting. -PT/OT/ST evaluation: continue to recommend acute inpatient rehab. -Continue aspirin 81 mg daily and atorvastatin 40 mg daily at bedtime. -continue metoprolol and lisinopril for BP control. 2. Hypertension, chronic -tolerating metoprolol/lisinopril at this time with good BP control. -mild systolic dysfunction on echo with LVEF 50% 3. Hyperlipidemia, chronic -Stable -Continue atorvastatin 40 mg daily at bedtime. 4. Probable obstructive sleep apnea, chronic, present on admission. Stable. -Patient would benefit from sleep study and CPAP. Dispo: Patient is stable for discharge tomorrow, Monday. His health plan [employer] declined inpatient rehab. Patient appears stable to discharge home with family 24 hr support. He will need home health or outpatient PT, OT and ST. He does not have PCP and will need to establish with PCP (can try getting him appointment at [facility] or [facility] prior to discharge). Quality VTE Deep Vein Thrombosis/Pulmonary Embolism Present on Admission: No
--- NOTE | 2018-10-02 19:49 | P.PN_ITS ---
Subjective Date Patient Seen: 10/02/18 Interval history: Patient is a 62-year-old male right-handed male admitted with acute right pontine CVA. Speech remains mildly slurred. Left hand weakness is improving. Gait is improving. Exam Vital Signs (past 8 hours): - 10/02/18 13:30 10/02/18 15:00 10/02/18 15:47 Temperature 97.8 F 98.6 F Pulse Rate 70 64 Respiratory Rate 16 15 Blood Pressure 139/78 147/84 H Pulse Oximetry 97 10/02/18 16:03 Temperature Pulse Rate Respiratory Rate Blood Pressure Pulse Oximetry 98 Oxygen Delivery Method Room Air Oxygen Flow Rate 0 Narrative Exam Narrative: General: Alert, pleasant and in no acute distress Neurological: Slight left facial droop, slight aphasia but easily understood, left hand weak but can't forklift picker cell phone, left leg with difficulty heel to han, gait much improved walking with contact guard assist Objective Labs Result Diagrams: 09/29/18 05:56 09/29/18 05:56 Assessment & Plan Assessment & Plan narrative: Patient is a 62-year-old male right-handed male admitted with acute right pontine CVA. 1. Acute right pontine CVA, present on admission. Active. -Patient presented with left-sided weakness, facial droop, and expressive a phasia with slight slurring of speech that is improving steadily. -CT brain without contrast and CTA did not demonstrate any acute intracranial abnormalities. -MR stroke protocol demonstrated acute right pontine CVA. -Echocardiogram revelaed EF 50% with trace mitral regurgitation. No interatrial shunting. -PT/OT/ST evaluation: continue to recommend acute inpatient rehab. -Continue aspirin 81 mg daily and atorvastatin 40 mg daily at bedtime. -continue metoprolol and lisinopril for BP control. 2. Hypertension, chronic -tolerating metoprolol/lisinopril at this time with good BP control. -mild systolic dysfunction on echo with LVEF 50% 3. Hyperlipidemia, chronic -Stable -Continue atorvastatin 40 mg daily at bedtime. 4. Probable obstructive sleep apnea, chronic, present on admission. Stable. -Patient would benefit from sleep study and CPAP. Dispo: Patient is stable for discharge tomorrow, Monday. His health plan [employer] declined inpatient rehab. Patient appears stable to discharge home with family 24 hr support. He will need home health or outpatient PT, OT and ST. He does not have PCP and will need to establish with PCP (can try getting him appointment at [facility] or [facility] prior to discharge). Quality VTE Deep Vein Thrombosis/Pulmonary Embolism Present on Admission: No
[2018-10-02] MEDS: ATORVASTATIN 20 MG TABLET 40 MG PO (20:45)
[2018-10-03] VITALS (10 sets, daily range): BP systolic 111–147; BP diastolic 70–88; PULSE 50–64; RESP 16–18; TEMP 35.8–36.5; O2SAT 95–99
[2018-10-03] MEDS: IBUPROFEN 600 MG TABLET PO ×2 (02:03→13:22)
--- NOTE | 2018-10-03 02:47 | PC.NURSE ---
Assumed care of pt at 2300 on 10/02/18. Pt sleeping during bedside hand-off. Awakens to voice for assessment. NIH 3 r/t slight weakness to LLE and LUE. Reports POND behind eyes. Medicated per sep. 1 PA w/fww, steady on feet. Calling appropriately for needs.
--- NOTE | 2018-10-03 06:47 | P.DS_ITS ---
History of Present Illness Chief complaint: mild stroke Narrative: Written by myself Dr. Byrd: Brandon Ivey is a 62-year-old male with a past medical history significant for hypertension and probable obstructive sleep apnea not on CPAP who presented with left-sided weakness and facial droop. His significant other reports that she thought he had the flu yesterday as he experience nausea and vomiting after a meal yesterday. This morning he threw up another time and is she noticed his left face was definitely weaker and he was having difficulty walking. 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 He exhibits expressive aphasia and reports that it is hard to get the words out that he wants to say. He also has had pain in his right eye that has resolved, as well as, blurriness which has not. He current denies headache, chest pain, shortness of breath, abdominal pain, nausea, vomiting, fever, chills, dysuria, diarrhea or constipation. He has no other complaints at this time. Discharge Providers Date of admission: 09/24/18 11:08 Discharge Date: 10/04/18 Consults: 09/24/18 12:16 Consult to Occupational Therapy Evaluate & Treat Comment: Physician Instructions: Evaluate and treat Consult to Physical Therapy Evaluate & Treat Comment: Physician Instructions: Evaluate and Treat 09/24/18 12:18 Consult to Speech Therapy Evaluate & Treat Comment: Physician Instructions: Evaluate and treat 09/24/18 12:47 Consult to Speech Therapy Evaluate & Treat Comment: Physician Instructions: Evaluate and treat Discharge provider: Yenifer Byrd DO Summary Discharge Diagnosis: 1. Acute right pontine CVA, present on admission. Improving. 2. Hypertension, chronic, present on admission. Stable. 3. Hyperlipidemia, chronic , present on admission. Stable. 4. Probable obstructive sleep apnea, chronic, present on admission. Stable. Hospital Course: Brandon Ivey is a 62-year-old male right-handed male admitted with acute right pontine CVA. 1. Acute right pontine CVA, present on admission. Improving. -Patient presented with left-sided weakness, facial droop, and expressive aphasia with slight slurring of speech that is improving steadily. -CT brain without contrast and CTA did not demonstrate any acute intracranial abnormalities. -MR stroke protocol demonstrated acute right pontine CVA. -Echocardiogram revelaed EF 50% with trace mitral regurgitation. No interatrial shunting. -PT/OT/ST evaluation: continued to recommend acute inpatient rehab which was declined by his insurance. -Continued aspirin 81 mg daily and atorvastatin 40 mg daily at bedtime for stroke prophylaxis. -Continued metoprolol and lisinopril for BP control. 2. Hypertension, chronic, present on admission. Stable. -Started him on metoprolol succinate 25 mg daily and lisinopril 10 mg twice daily with good BP control and provided prescription at time of discharge. Orthostatic on carvedilol. -Mild systolic dysfunction on echo with LVEF 50%. 3. Hyperlipidemia, chronic , present on admission. Stable. -Continued atorvastatin 40 mg daily at bedtime. 4. Probable obstructive sleep apnea, chronic, present on admission. Stable. -Patient would benefit from sleep study and CPAP. Status at Discharge Functional status at discharge: uses cane/walker Overall status at discharge: patient is not back to baseline Exam Vital Signs (past 8 hours): - 10/03/18 01:30 10/03/18 01:50 10/03/18 06:00 Temperature 97.0 F L 96.5 F L Pulse Rate 60 50 L Respiratory Rate 18 18 Blood Pressure 147/85 H 131/78 Pulse Oximetry 99 99 95 Oxygen Delivery Method Room Air Oxygen Flow Rate 0 Narrative Exam Narrative: General: Older male sitting in bed and in no acute distress, appears older than stated age, well-developed, well-nourished, appropriately interactive. HEENT: Normocephalic, atraumatic. External ears without defect. Pupils equal, round, and reactive to light. Anicteric sclerae, moist conjunctivae, and no lid lag. Neck: Supple with full range of motion. No lymphadenopathy or thyromegaly. Cardiovascular: Regular rate and rhythm without murmurs, rubs, or gallops appreciated Pulmonary: Clear to auscultation bilaterally without crackles, wheezes, or rhonchi. Normal respiratory effort with no use of accessory muscles. Abdomen: Soft, bowel sounds present, nontender, nondistended. No hepatosplenomegaly or masses appreciated. Extremities: No clubbing, cyanosis, or edema. Skin: Normal temperature, turgor, and texture; no rash, ulcers, or subcutaneous nodules appreciated. 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 Right upper and lower extremity normal muscle strength 5/5. [id number] intact bilaterally. Psychiatric: Normal mood and affect. Alert and oriented to person, place, and time. Objective Labs Result Diagrams: 09/29/18 05:56 09/29/18 05:56 Discharge Plan Discharge Plan Patient Disposition: Home Health Service Transfer to: [facility] Discharge comment: You're being discharged home with home health for physical therapy, occupational therapy, speech therapy, and nursing. Please follow-up with the primary care provider regarding your hospitalization and stroke as soon as possible. you would benefit from an outpatient sleep study to assess you for obstructive sleep apnea Discharge Med Rec/Prescriptions Prescriptions: New atorvastatin [Lipitor] 20 mg Tablet 40 mg PO BEDTIME Qty: 60 RF: 0 lisinopril 10 mg Tablet 10 mg PO BID Qty: 60 RF: 0 metoprolol succinate 25 mg Tablet Extended Release 24 Hr 25 mg PO DAILY Qty: 30 RF: 0 Continued multivitamin [Multiple Vitamins] 1 EACH tablet 1 tab PO DAILY Qty: 0 RF: 0 Changed aspirin 81 mg Tablet,Delayed Release (Dr/Ec) 81 mg PO DAILY Qty: 30 RF: 0 Discontinued ibuprofen 200 mg Tablet 200 mg PO QID PRN (Reason: Pain, Moderate) RF: 0 Provider Discharge Instructions Diet: Low-fat, Low-sodium and Low-cholesterol Activity: Activity as tolerated with a forward wheeled walker. Visit Report/Discharge Packet Instructions: Transient Ischemic Attack, Ischemic Stroke, Right-side Stroke Visit Report Forms: Stroke Signs & Symptoms Discharge Data Attending Provider: Yenifer Byrd Admit Date/Time: 09/24/18 11:08 Quality VTE Deep Vein Thrombosis/Pulmonary Embolism Present on Admission: No
[2018-10-03] MEDS: HEPARIN 5,000 UNIT/ML VIAL 5000 UNIT SUBCUT ×2 (09:17→22:22)
[2018-10-03] MEDS: ASPIRIN EC 81 MG TABLET PO (09:17)
[2018-10-03] MEDS: LISINOPRIL 10 MG TABLET PO ×2 (09:17→22:23)
[2018-10-03] MEDS: ACETAMINOPHEN 325 MG TABLET 650 MG PO (09:17)
[2018-10-03] MEDS: METOPROLOL ER 25 MG TABLET PO (09:18)
[2018-10-03] MEDS: SODIUM CHLORIDE 0.9% FLUSH 10 ML IV ×2 (09:18→22:24)
--- NOTE | 2018-10-03 10:40 | CM.DPC ---
DCP Cont: Had a meeting with [id number]. She stated that she is wondering about a plan B, and why [facility] plan was not initiated. Let her know, this was due to attempting to get patient into inpatient rehab at [facility], which Annette had just denied. She is concerned about taking him home, stated, I don't feel that he is medically stable with his medications, and I personally don't feel comfortable taking him home, even though my does. Discussed finding patient a new physician. Stated, can't you help with this. Let her know that this case assembler would attempt to get information for her with the [facility], and would also call [facility] to follow up with Luann. Discussed case at team rounds as well. Gave [id number], Glory, [facility] phone number. Called Luann at [facility]. She called back stating that they have no beds at this time, and that there was a waiting list. She suggested that [id number] fill out I-MD application, for her concerns about sales marketing manager care is ensuring that there is a plan afterward. Met with Natalya, she stated that she had spoken to Luann as well. She was able to call [facility] and get appt with Dr. Bernard Vogel on 10/08, but she also stated that she called a facility in [facility], and they have a male bed available. She stated gave this case manage phone number and fax number. Went ahead and called them, their number is: [phone]. Grant was not available, she is in admissions, but napper tender stated to go ahead and fax clinical information. Faxing clinical information at: [phone]. Will follow up with call. Hazel Preciado RN/Milk Drying Machine Operator
--- NOTE | 2018-10-03 10:53 | PC.NURSE ---
Addendum entered by Ritika Mijares R.N. 10/03/18 13:24: PAIN -sitting chair, talking to brother at bedside and filling out a form, states his headache did return this afternoon and given ibuprofen. Original Note: Addendum entered by Ritika Mijares R.N. 10/03/18 12:10: MS - ater phys therapy, per Emi, pt does not need to be on chair alarm, discussed pt can be impulsive at times and will need door open and freq monitoring. Original Note: AM NOTE - Pt is alert, speech is slightly slurred and per pt this comes and goes, l side mouth is weaker than r, l hand and lle weakness continues, some headache discomfort, points to top of his head that earlier ibuprofen didn't relieve and given tylenol with breakfast, no coughing or difficulty swallowing, sister in law in this am with questions re plan care, discharge, Cortney in this am to speak to her.
--- NOTE | 2018-10-03 12:10 | PT.IPTN ---
Current Diagnoses Cerebral infarction, unspecified (09/24/18) Physical Therapy Treatment Note M2 PT-IP Current Condition Start: 09/24/18 15:09 Freq: NEEDED Status: Active Protocol: Document 09/25/18 09:47 RS (Rec: 09/25/18 09:53 RS [id number]) Physical Therapy Current Condition Current Condition Evaluation Date 09/25/18 Treatment Diagnosis R pontine ischemic infarct - impaired mobility Onset Date 09/24/18 Precautions Other Precautions high fall risk M3 PT-IP Subjective Start: 09/24/18 15:09 Freq: NEEDED Status: Active Protocol: Document 10/03/18 12:10 GGD (Rec: 10/03/18 12:21 GGD [id number]) Subjective Physical Therapy Visit Type Type Treatment Note Visit Start Time 11:45 Visit Stop Time 12:10 Total Visit Minutes 25 Number of HAMMER SETTER Visits 3 Physical Therapy Visit Comments Patient Comments Pt states that he is tired. M4 PT-IP Mobility and Gait Start: 09/24/18 15:09 Freq: NEEDED Status: Active Protocol: Document 10/03/18 12:10 GGD (Rec: 10/03/18 12:21 GGD [id number]) PT-Bed Mobility Assessment Supine to Sit Supine to Sit Independent Scooting Scooting to Edge of Bed Independent Scooting Up and Down in Bed Independent PT-Transfer Assessment Sit to and From Stand Sit to and from Stand Independent Equipment Transfer Assistive Device Gait Belt Straight Cane Front Wheeled Walker Transfers Transfer Destination Bed Chair Transfer Ability Level of Assist Standby Assistance Gait Assessment Gait Gait Assistance Required: Contact Guard Assist Minimum Assistance Distance (Feet) 500 Assistive Devices Assistive Device Gait Belt Front Wheeled Walker Gait Deviations General Gait Pattern Ataxic Decreased Stride Length Decreased Feet Clearance Factors Limiting Gait Function Factors Limiting Gait Function Decreased Sensation Decreased Strength Incoordination Poor Balance Comments Gait Comments gait with FWW with distraction with SBA. Gait with SPC x 250 feet with CGA. Stair Climbing Assessment Evaluation Level of Assist On Stairs Contact Guard Assistance 1 Person Assistance Devices Stair Climbing Assistive Devices Left Railing Right Railing Technique/Endurance Stair Climbing Direction Ascend and Descend Stair Climbing Technique Step to Step Number of Steps Climbed 3 Query Text: Stair Climbing Set # Repetitions (reps) 2 Comments Stair Climbing Comments Pt used both rails for one rep and then one rail. He need cues for sequencing. M5 PT-IP Objective Assessments Start: 09/24/18 15:09 Freq: NEEDED Status: Active Protocol: Document 09/25/18 09:47 RS (Rec: 09/25/18 10:34 RS [id number]) Orientation Orientation/Cognition Level of Alertness Alert Orientation Name Age Birthday Month Date Year Day of Week Place Situation Language Function Ability Expressive Aphasia Word Finding Difficulties Safety Awareness Decreased Safety Awareness Gross Range of Motion Upper Extremity ROM Assessment Left Impaired Impairments PROM relatively intact but AROM limited due to weakness. Lower Extremity ROM Assessment Within Functional Limits Strength Upper Extremity Strength Assessment Left Impaired Lower Extremity Strength Assessment Left Impaired Hip 3+/5 Knee 3+/5 Ankle 3+/5 Coordination Assessment Gross Coordination Gross Coordination Impaired Assessment Finger to Nose Test Moderate Impairment Pronation/Supination Test Moderate Impairment Foot Tapping Test Moderate Impairment Heel on Johnson Test Moderate Impairment Coordination Comments Some of the slowness and test deficits are related to weakness, but definitely impaired coordination on all tests Sensation Assessment Sensation Light Touch Impaired Comments Sensation Comments Pt denies sensation deficits but only 50-75% for light touch on L side. Muscle Tone Muscle Tone WNL No Muscle Tone Location Left Upper Extremity Type of Tone Hypotonicity Severity of Tone Mild M6 PT-IP Treatment Start: 09/24/18 15:09 Freq: NEEDED Status: Active Protocol: Document 10/03/18 12:10 GGD (Rec: 10/03/18 12:21 GGD [id number]) Physical Therapy Treatment Education Education Provided Safety Other Treatments Other Treatment Performed standing balance SLS, tandem, side step. M7 PT-IP Assessment and Plan Start: 09/24/18 15:09 Freq: NEEDED Status: Active Protocol: Document 10/03/18 12:10 GGD (Rec: 10/03/18 12:21 GG [id number]) PT Summary Assessment and Plan Summary Assessment Summary Pt improved with gait. He had no LOB with FWW. He was safe and stable gait with SPC. He improved gait pattern and foot clearance. He had LOB with SLS. Frequency of Treatment Frequency Of Treatment Twice a Day Treatment Plan Physical Therapy Treatment Plan Bed Mobility Training Transfer Training Gait Training Therapeutic Exercise Balance Retraining Post Op Education Discharge Planning Hot or Cold Pack Neuromuscular Re-ed Coordination Retraining Manual Therapy Other Recommendations and Next Treatment monitor BP, balance, Focus coordination, pregait w.out AD and walking without AD, stairs, LE strengthening. Recommendations To Nursing Amount of Assist Needed 1 Person Assist Discharge Recommendations PT Discharge Recommendations Acute Rehab
--- NOTE | 2018-10-03 13:57 | CM.DPC ---
DCP Cont: [facility], for had not heard back from facility. Was originally given Grant as contact agent. When this showcase trimmer called back, Grant had answered, but stated that the director of athletics is handling the case, and his name is Aime. Spoke to Aime at [facility], and he stated that he did received clinical notes, and would be reviewing. At this point, patient does have an MD appt set up with Dr. Bernard Vogel at [facility], for Monday, at 3:00. This will be changed, if facility accepts patient. P: DCP will continue to follow closely. Aime at [facility] is main contact. It is hopeful if they will be able to accept patient. Did speak to Heath at [facility], for he came in to provide brochures. Stated, they can accept [place] in some cases, depends on compliance of the patient. He also mentioned that they can accept if they know that the patient will be seeing a primary provider soon. Hazel Preciado, RN/Roll Cutting Operator
--- NOTE | 2018-10-03 14:48 | OT.IP.TRT ---
Current Diagnoses Cerebral infarction, unspecified (09/24/18) Occupational Therapy Treatment Note M2 OT-IP Current Condition Start: 09/25/18 15:53 Freq: Status: Active Protocol: Document 09/25/18 15:06 PJM (Rec: 09/25/18 16:24 PJM [id number]) Occupational Therapy Current Condition Current Condition Evaluation Date 09/25/18 Treatment Diagnosis decreased LUE function, decreased indep in all self care,mobility s/p stroke Diagnosis Onset Date 09/24/18 Post Operative Precautions Other Precautions fall risk, Lhemiparesis, LUE neglect Weight Bearing Status Weight Bearing Status Weight Bear as Tolerated M3 OT- IP Subjective and Pain Start: 09/25/18 15:53 Freq: Status: Active Protocol: Document 10/03/18 14:28 [facility] (Rec: 10/03/18 14:48 [facility] [id number]) OT- Subjective Occupational Therapy Visit Type Type Treatment Note Visit Start Time 10:00 Visit Stop Time 11:30 Total Visit Minutes 120 Notes Pt also seen from [id number] for BUE exercises Occupational Therapy Visit Comments Patient Comments Pt cooperative and willing to do left UE exercises. OT Pain Assessment Pain When Pain Assessed At Rest Pain Present Pain Present Denied Pain M6 OT- IP Functional Cognition Start: 09/25/18 15:53 Freq: Status: Active Protocol: Document 10/03/18 14:28 [facility] (Rec: 10/03/18 14:48 [facility] [id number]) Cognitive Factors Limiting Selfcare Function Cognitive Ability Level of Alertness Alert Patient Orientation Name Age Birthday Month Date Year Day of Week Place Situation Attention Span Ability Capable of Focused Attention Capable of Sustained Attention Ability to Follow Commands Able to Follow Multi-Step Commands Memory Description No Deficits Noted Safety Awareness Underestimates Need for Assistance Cognitive Comments Cognitive Assessment Comments Today better for left neglect and thinking through for problem solving for new skills. M7 OT- IP Mobility and Balance Start: 09/25/18 15:53 Freq: Status: Active Protocol: Document 10/03/18 14:28 [facility] (Rec: 10/03/18 14:48 [facility] [id number]) OT- Bed Mobility Assessment Rolling Type of Rolling Roll to Right Level of Assistance Independent Supine to Sit Supine to Sit Assist Independent Sit to Supine Sit to Supine Assist Independent OT-Transfer Assessment Sit to and From Stand Sit to and from Stand Independent Transfers Transfer Ability Independent Technique Transfer Destination Bed Chair Devices Transfer Assistive Devices None Comments Mobility Comments Pt able to transfer from bed to recliner on his own with good safety. Pt states getting a little frustrated and depressed about not being able to get up on his own. Spoke to [employer] CLERK regarding if pt able to be MOD I in the room or have trial to see if pt able to be independent in his room. OT- Balance Assessment Sitting Balance and Reactions Static Sitting Balance Ability Normal Dynamic Sitting Balance Ability Good Standing Balance and Reactions Static Standing Balance Ability Normal Dynamic Standing Balance Ability Fair M8 OT- IP Objective Assessments Start: 09/25/18 15:53 Freq: Status: Active Protocol: Document 10/03/18 14:28 [facility] (Rec: 10/03/18 14:48 [facility] [id number]) OT Gross Range of Motion Upper Extremity Range of Motion Assessment Left Impaired ROM Impairments Pt now WFL for PROM for LUE. OT Strength Upper Extremity Strength Assessment Left Impaired OT- Coordination Assessment Comments Coordination Comments Pt now able to grasp water bottle and release onto table. Pt more conscious to try to incorporate left hand for all needs. Emphasized with pt for proper posture for stretching, being sure to breath as pt tends to hold his breath. Went over step by step for ways pt able to self stretch his left hand and arm. At the end of the session noted increased control with left arm and stability for left shoulder. M9 OT- IP Assessment and Plan Start: 09/25/18 15:53 Freq: Status: Active Protocol: Document 10/03/18 14:28 [facility] (Rec: 10/03/18 14:48 [facility] [id number]) OT Summary Assessment and Plan Potential Rehabilitation Potential Excellent Summary OT Impairments Strength Balance Coordination Functional Cognition Functional Mobility Self-Feeding Grooming Dressing Toileting Bathing Toilet Transfers Shower Transfers Progress Towards Goals Progressing Toward Goals Assessment Summary Pt doing well with OT home exercise and stretching able to follow with good safety. Pt now looking into going to skilled rehab versu home with outpt and awaiting insurance acceptance. Goals Grooming Goal Minimal Assistance Dressing Goal Minimal Assistance Toileting Goal Minimal Assistance Bathing Goal Moderate Assistance Toilet Transfer Goal Contact Guard Assistance Shower Transfer Goal Minimal Assistance Patient/Caregiver Education Goal Demonstrate Energy Conservation and Pacing OT-Other Goals All goals upgraded to incorporate use of left hand. Days to Meet Goals 7 Frequency of Treatment Frequency Of Treatment Once a Day Treatment Plan OT Treatment Plan ADL Training Functional Mobility Neuromuscular Re-education Patient/Family Education Discharge Planning Other Treatment Recommendations and Next To be able to recall all home Treatment Focus exercises and stretched and show good safety and understanding. Discharge Recommendations OT Discharge Recommendations Home with 24/7 Assist SNF Rehab Acute Rehab Outpatient PT Other Discharge Recommendations if having to go to outpt- OT/ PT/LANE ATTENDANT.
--- NOTE | 2018-10-03 15:03 | CM.DPC ---
DCP Cont: Updated [id number], Natalya, as well as brother, Darwin. Let them both know that this field nurse case manager has been in contact with Aime at [facility] in [place]. Did let her know that they have received paper work, and am not sure as far as [facility] authorizing, but will continue to be in contact. Let her know that this field nurse case manager would call them again before leaving today, for status update. Let her know that other option may be home health, since patient does have an appt coming up on Monday with Dr. Vogel. P: DCP to continue to work on placement. Hazel Preciado RN/Cafeteria Aide
--- NOTE | 2018-10-03 15:23 | ST.IPTN ---
BEHAVIOR INTERVENTIONIST Treatment Note BEHAVIOR INTERVENTIONIST Treatment Note Start: 09/24/18 16:14 Freq: Status: Active Protocol: Document 10/03/18 15:15 TLC (Rec: 10/03/18 15:22 TLC [id number]) Speech Pathology Treatment Note Session Time Visit Start Time 12:45 Visit Stop Time 13:15 Total Visit Minutes 30 Setting Treatment Setting Acute Care Visit Type Note Type Treatment Note Next Note Type Next Note Type Treatment Note General Information General Information Patient in with 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 Awaiting placement for discharge. Subjective Observations/Patient Presentation Prior to entering room, PT informed me patient's chair alarm was removed from the room and he is cleared to ambulate around his room with out assistance. Upon entering room, patient was sitting in the chair completing medical paperwork. His brother was present. Chief Complaint(s) Speech Cognitive Objective Short Term Goals Brandon will use appropriate eye contact in conversations without verbal cues. - improving Brandon will perform deductive reasoning tasks with out assistance with 80% accuracy. - requires min-mod verbal cues Treatment Activities Speech: patient continues to have left facial droop with mild dysarthria despite 100% intelligibility. He states /f/ and /s/ are most difficult for him. He reports temporary improvements in his speech immediately after taking a sip of water. No explanation for this other than increased lubrication vs. dryness in the mouth affecting articulatory precision. Cognition: patient had completed ~75% of a deductive reasoning puzzle on his own. He required min verbal cues to complete the ret of the puzzle. Additional worksheets were provided and placed in the patient's therapy folder ( prepared by OT). Pragmatics: Eye contact was improved on this date. Patient was somewhat verbose but receptive to social cues. Assessment Patient Response to Treatment Good Rehab Potential Excellent Impairments Identified Cognitive-Linguistic Skills Pragmatic Language Progress Towards Goals Excellent Progress Assessment of Overall Progress Improving Assessment of Improvement Progress is ongoing in all domains of speech/cognition. Reviewed with Patient Goals Progress Being Made Patient/Caregiver Understanding Good Plan Therapy Recommendations Continue with Current Program
--- NOTE | 2018-10-03 15:40 | PT.IPTN ---
Current Diagnoses Cerebral infarction, unspecified (09/24/18) Physical Therapy Treatment Note M2 PT-IP Current Condition Start: 09/24/18 15:09 Freq: NEEDED Status: Active Protocol: Document 09/25/18 09:47 RS (Rec: 09/25/18 09:53 RS [id number]) Physical Therapy Current Condition Current Condition Evaluation Date 09/25/18 Treatment Diagnosis R pontine ischemic infarct - impaired mobility Onset Date 09/24/18 Precautions Other Precautions high fall risk M3 PT-IP Subjective Start: 09/24/18 15:09 Freq: NEEDED Status: Active Protocol: Document 10/03/18 15:41 GGD (Rec: 10/03/18 15:59 GGD [id number]) Subjective Physical Therapy Visit Type Type Treatment Note Visit Start Time 15:10 Visit Stop Time 15:35 Total Visit Minutes 25 Number of SHIRT FINISHER Visits 4 Physical Therapy Visit Comments Patient Comments Pt willing to work with therapy. M4 PT-IP Mobility and Gait Start: 09/24/18 15:09 Freq: NEEDED Status: Active Protocol: Document 10/03/18 15:41 GGD (Rec: 10/03/18 15:59 GGD [id number]) PT-Transfer Assessment Sit to and From Stand Sit to and from Stand Independent Equipment Transfer Assistive Device Gait Belt Straight Cane Transfers Transfer Destination Chair Transfer Ability Level of Assist Standby Assistance Gait Assessment Gait Gait Assistance Required: Contact Guard Assist Minimum Assistance Distance (Feet) 300 Assistive Devices Assistive Device Gait Belt Gait Deviations General Gait Pattern Ataxic Decreased Stride Length Decreased Feet Clearance Factors Limiting Gait Function Factors Limiting Gait Function Decreased Sensation Decreased Strength Incoordination Poor Balance Comments Gait Comments head turns with gait with SPC and CGA. M5 PT-IP Objective Assessments Start: 09/24/18 15:09 Freq: NEEDED Status: Active Protocol: Document 09/25/18 09:47 RS (Rec: 09/25/18 10:34 RS [id number]) Orientation Orientation/Cognition Level of Alertness Alert Orientation Name Age Birthday Month Date Year Day of Week Place Situation Language Function Ability Expressive Aphasia Word Finding Difficulties Safety Awareness Decreased Safety Awareness Gross Range of Motion Upper Extremity ROM Assessment Left Impaired Impairments PROM relatively intact but AROM limited due to weakness. Lower Extremity ROM Assessment Within Functional Limits Strength Upper Extremity Strength Assessment Left Impaired Lower Extremity Strength Assessment Left Impaired Hip 3+/5 Knee 3+/5 Ankle 3+/5 Coordination Assessment Gross Coordination Gross Coordination Impaired Assessment Finger to Nose Test Moderate Impairment Pronation/Supination Test Moderate Impairment Foot Tapping Test Moderate Impairment Heel on Johnson Test Moderate Impairment Coordination Comments Some of the slowness and test deficits are related to weakness, but definitely impaired coordination on all tests Sensation Assessment Sensation Light Touch Impaired Comments Sensation Comments Pt denies sensation deficits but only 50-75% for light touch on L side. Muscle Tone Muscle Tone WNL No Muscle Tone Location Left Upper Extremity Type of Tone Hypotonicity Severity of Tone Mild M6 PT-IP Treatment Start: 09/24/18 15:09 Freq: NEEDED Status: Active Protocol: Document 10/03/18 15:41 GGD (Rec: 10/03/18 15:59 GGD [id number]) Physical Therapy Treatment Other Treatments Other Treatment Performed standing balance SLS, heel toe gait, backwards gait, grapevine, side step. M7 PT-IP Assessment and Plan Start: 09/24/18 15:09 Freq: NEEDED Status: Active Protocol: Document 10/03/18 15:41 GGD (Rec: 10/03/18 15:59 GGD [id number]) PT Summary Assessment and Plan Summary Assessment Summary Pt had mild unsteadiness with gait with head turns with SPC, but no LOB. He is progressing with gait pattern and step length. He is need cues for safety. Frequency of Treatment Frequency Of Treatment Twice a Day Treatment Plan Physical Therapy Treatment Plan Bed Mobility Training Transfer Training Gait Training Therapeutic Exercise Balance Retraining Post Op Education Discharge Planning Hot or Cold Pack Neuromuscular Re-ed Coordination Retraining Manual Therapy Other Recommendations and Next Treatment monitor BP, balance, Focus coordination, pregait w.out AD and walking without AD, stairs, LE strengthening. Recommendations To Nursing Amount of Assist Needed 1 Person Assist Discharge Recommendations PT Discharge Recommendations Acute Rehab
--- NOTE | 2018-10-03 21:32 | PM.PN.1 ---
Subjective Date Patient Seen: 10/03/18 Interval history: The patient is resting in bedside chair comfortably. He continues to improve slowly with his left upper extremity weakness and ataxia. He continues to exhibit slight slurred speech with much improvement and expressive aphasia. Left-sided facial droop persistent. He denies headache, chest pain, shortness of breath, nausea, vomiting, fever, chills, dysuria, diarrhea or constipation. He is up ambulating with assistance. Physical therapy recommends home with home health. Exam Vital Signs (past 8 hours): - 10/03/18 13:51 10/03/18 15:00 10/03/18 15:35 Temperature 97.7 F 96.8 F L Pulse Rate 64 60 Respiratory Rate 16 18 Blood Pressure 111/76 122/70 Pulse Oximetry 96 99 99 10/03/18 20:05 Temperature 97.3 F L Pulse Rate 63 Respiratory Rate 17 Blood Pressure 130/81 Pulse Oximetry 97 Oxygen Delivery Method Room Air Oxygen Flow Rate 0 Narrative Exam Narrative: General: Older gentleman sitting in bedside chair and in no acute distress, appears older than stated age, well-developed, well-nourished, appropriately interactive. HEENT: Normocephalic, atraumatic. External ears without defect. Pupils equal, round, and reactive to light. Anicteric sclerae, moist conjunctivae, and no lid lag. Oropharynx free of erythema and cobble stoning with moist mucosa. Neck: Supple with full range of motion. No lymphadenopathy or thyromegaly. Cardiovascular: Regular rate and rhythm without murmurs, rubs, or gallops appreciated. Pulmonary: Clear to auscultation bilaterally without crackles, wheezes, or rhonchi. Normal respiratory effort with no use of accessory muscles. Abdomen: Soft, bowel sounds present, nontender, nondistended. No hepatosplenomegaly or masses appreciated. Extremities: No clubbing, cyanosis, or edema. Skin: Normal temperature, turgor, and texture; no rash, ulcers, or subcutaneous nodules appreciated. Neurological: Left-sided facial droop, left robotic welder weakness 3/5 and improved, mild expressive aphasia significantly improved and slight slurring of speech. Right upper and lower extremity normal muscle strength 5/5. Kxob-ow-[id number] intact bilaterally. Psychiatric: Normal mood and affect. Alert and oriented to person, place, and time. Objective Labs Result Diagrams: 09/29/18 05:56 09/29/18 05:56 Assessment & Plan Assessment & Plan narrative: Brandon Ivey is a 62-year-old male right-handed male admitted with acute right pontine CVA. 1. Acute right pontine CVA, present on admission. Improving. -Patient presented with left-sided weakness, facial droop, and expressive aphasia with slight slurring of speech that is improving steadily. -CT brain without contrast and CTA did not demonstrate any acute intracranial abnormalities. -MR stroke protocol demonstrated acute right pontine CVA. -Echocardiogram revelaed EF 50% with trace mitral regurgitation. No interatrial shunting. -PT/OT/ST evaluation: continued to recommend acute inpatient rehab which was declined by his insurance. Physical therapy now recommending home with home health for PT/OT /ST. -Continue aspirin 81 mg daily and atorvastatin 40 mg daily at bedtime for stroke prophylaxis. -Continue metoprolol and lisinopril for BP control. 2. Hypertension, chronic, present on admission. Stable. -Started him on metoprolol succinate 25 mg daily and lisinopril 10 mg twice daily with good BP control and provided prescription at time of discharge. Orthostatic on carvedilol. -Mild systolic dysfunction on echo with LVEF 50%. 3. Hyperlipidemia, chronic , present on admission. Stable. -Continue atorvastatin 40 mg daily at bedtime. 4. Probable obstructive sleep apnea, chronic, present on admission. Stable. -Patient would benefit from sleep study and CPAP. Disposition: Had a very long detailed conversation with patient and his [id number] and informed him that physical therapy is now recommending home with home health and that he has made significant progression and can function independently. Patient's family is making arrangements to have his home ready with handlebar java j2ee architect/ rales in shower, etc. Likely to discharge home with home health tomorrow. Quality VTE Deep Vein Thrombosis/Pulmonary Embolism Present on Admission: No
--- NOTE | 2018-10-03 21:35 | P.PN_ITS ---
Subjective Date Patient Seen: 10/03/18 Interval history: The patient is resting in bedside chair comfortably. He continues to improve slowly with his left upper extremity weakness and ataxia. He continues to exhib it slight slurred speech with much improvement and expressive aphasia. Left- sided facial droop persistent. He denies headache, chest pain, shortness of breath, nausea, vomiting, fever, chills, dysuria, diarrhea or constipation. He is up ambulating with assistance. Physical therapy recommends home with home health. Exam Vital Signs (past 8 hours): - 10/03/18 13:51 10/03/18 15:00 10/03/18 15:35 Temperature 97.7 F 96.8 F L Pulse Rate 64 60 Respiratory Rate 16 18 Blood Pressure 111/76 122/70 Pulse Oximetry 96 99 99 10/03/18 20:05 Temperature 97.3 F L Pulse Rate 63 Respiratory Rate 17 Blood Pressure 130/81 Pulse Oximetry 97 Oxygen Delivery Method Room Air Oxygen Flow Rate 0 Narrative Exam Narrative: General: Older gentleman sitting in bedside chair and in no acute distress, appears older than stated age, well-developed, well-nourished, appropriately interactive. HEENT: Normocephalic, atraumatic. External ears without defect. Pupils equal, round, and reactive to light. Anicteric sclerae, moist conjunctivae, and no lid lag. Oropharynx free of erythema and cobble stoning with moist mucosa. Neck: Supple with full range of motion. No lymphadenopathy or thyromegaly. Cardiovascular: Regular rate and rhythm without murmurs, rubs, or gallops appreciated. Pulmonary: Clear to auscultation bilaterally without crackles, wheezes, or rhonchi. Normal respiratory effort with no use of accessory muscles. Abdomen: Soft, bowel sounds present, nontender, nondistended. No hepatosplenomegaly or masses appreciated. Extremities: No clubbing, cyanosis, or edema. Skin: Normal temperature, turgor, and texture; no rash, ulcers, or subcutaneous nodules appreciated. Neurological: Left-sided facial droop, left mend worker weakness 3/5 and improved, mild expressive aphasia significantly improved and slight slurring of speech. Right upper and lower extremity normal muscle strength 5/5. Huao-zz-xqcr intact bilaterally. Psychiatric: Normal mood and affect. Alert and oriented to person, place, and time. Objective Labs Result Diagrams: 09/29/18 05:56 09/29/18 05:56 Assessment & Plan Assessment & Plan narrative: Brandon Ivey is a 62-year-old male right-handed male admitted with acute right pontine CVA. 1. Acute right pontine CVA, present on admission. Improving. -Patient presented with left-sided weakness, facial droop, and expressive aphasia with slight slurring of speech that is improving steadily. -CT brain without contrast and CTA did not demonstrate any acute intracranial abnormalities. -MR stroke protocol demonstrated acute right pontine CVA. -Echocardiogram revelaed EF 50% with trace mitral regurgitation. No interatrial shunting. -PT/OT/ST evaluation: continued to recommend acute inpatient rehab which was declined by his insurance. Physical therapy now recommending home with home health for PT/OT /ST. -Continue aspirin 81 mg daily and atorvastatin 40 mg daily at bedtime for stroke prophylaxis. -Continue metoprolol and lisinopril for BP control. 2. Hypertension, chronic, present on admission. Stable. -Started him on metoprolol succinate 25 mg daily and lisinopril 10 mg twice daily with good BP control and provided prescription at time of discharge. Orthostatic on carvedilol. -Mild systolic dysfunction on echo with LVEF 50%. 3. Hyperlipidemia, chronic , present on admission. Stable. -Continue atorvastatin 40 mg daily at bedtime. 4. Probable obstructive sleep apnea, chronic, present on admission. Stable. -Patient would benefit from sleep study and CPAP. Disposition: Had a very long detailed conversation with patient and his ooevzs-jh-yxx and informed him that physical therapy is now recommending home with home health and that he has made significant progression and can function independently. Patient's family is making arrangements to have his home ready with handlebar broomcorn grader/ rales in shower, etc. Likely to discharge home with home health tomorrow. Quality VTE Deep Vein Thrombosis/Pulmonary Embolism Present on Admission: No
[2018-10-03] MEDS: ATORVASTATIN 20 MG TABLET 40 MG PO (22:22)
[2018-10-04 00:05] VITALS: BP 133/75; PULSE 50; RESP 18; TEMP 36.6; O2SAT 98
[2018-10-04 00:15] VITALS: O2SAT 98
--- NOTE | 2018-10-04 02:03 | PC.NURSE ---
Assumed care of pt at 2300 on 10/03/18. Pt sleeping during bedside hand-off. Awakens to voice for assessment. NIH 5 r/t very mild slurred speech, Left facial droop and LUE and LLE weakness. Denies pain or discomfort. Bed alarm on. Call light within reach. Pt verbalized he will call for needs.
[2018-10-04 04:00] VITALS: BP 104/61; PULSE 50; RESP 18; TEMP 36.4; O2SAT 96
[2018-10-04 07:57] VITALS: BP 121/72; PULSE 54; RESP 15; TEMP 36.2; O2SAT 97
[2018-10-04] MEDS: ASPIRIN EC 81 MG TABLET PO (08:27)
[2018-10-04] MEDS: SODIUM CHLORIDE 0.9% FLUSH 10 ML IV (08:28)
[2018-10-04] MEDS: HEPARIN 5,000 UNIT/ML VIAL 5000 UNIT SUBCUT (08:28)
[2018-10-04] MEDS: LISINOPRIL 10 MG TABLET PO (08:28)
[2018-10-04] MEDS: IBUPROFEN 600 MG TABLET PO (08:28)
[2018-10-04] MEDS: METOPROLOL ER 25 MG TABLET PO (08:29)
[2018-10-04 09:00] VITALS: O2SAT 95
--- NOTE | 2018-10-04 10:20 | CM.DPC ---
DCP Cont: Spoke with Dr. Byrd, hospitalist, and she stated that she would discharge patient home today. Stated that home health would be beneficial for him. This gearcase assembler had left a message with Saniya at [facility]. She then tried to call this gearcase assembler back, and left a message asking for clinical information, including H&P, physical therapy notes. Asked Carly to fax them to Saniya's fax number, but has not yet noted that it has gone through. Left Saniya another message letting her know that clinicals would be faxed to the regular [facility] fax number. Spoke to occupational therapist who had just worked with patient. He stated that he would be staying with significant other. Received the address of where he will be staying, to enable [place] having access to where he is staying. Early this morning, had left a message with Sheryl at outpatient physical therapy, but she had not gotten back to this gearcase assembler. This is in case Svetlana can't see patient. Patient is anxious to go home. Fjeqdd-vz-bru has been concerned about patient going home, mainly staying with her and her , which is patient's brother. Dr. Byrd stated that she has conversation with wmrwex-jg-iyg last night, as well as brother, and told her the plan. She is planning on discharging patient today. Had not heard back from Luann gallo Munson, as well. P: DCP to continue to follow. Plan is for discharge for home health. Had Dr. Byrd sign face to face. Awaiting orders for discharge. Hazel Preciado, RN/Steam Plant Operator
--- NOTE | 2018-10-04 10:25 | PC.NURSE ---
Addendum entered by Ritika Mijares R.N. 10/04/18 12:29: DC - reviewed dc instructions with pt and his brother and sister in law, scripts provided, belongings gathered, including own fww, cell phone, lead pourer with brother, clothing and shoes, tsf to and wind turbine design engineer escorted to family car. Original Note: AM NOTE - pt is awake, speech is mildly slurred, responses are appropriate, l facial droop, weakness l ms sql developer and lle, responses are appropriate, continues with headache discomfort at times and given ibuprofen after breakfast, discussed constipation and pt stated felt like bm this am and wind turbine design engineer assisted to br and pt did have moderate bm, declined any laxatives this am, ra 95%, hr irreg 64, family in this am and per , pt will dc home with HH today.
--- NOTE | 2018-10-04 11:13 | OT.IP.TRT ---
Current Diagnoses Cerebral infarction, unspecified (09/24/18) Occupational Therapy Treatment Note M3 OT- IP Subjective and Pain Start: 09/25/18 15:53 Freq: Status: Active Protocol: Document 10/04/18 11:13 PJKsenia (Rec: 10/04/18 17:07 [facility] [id number]) OT- Subjective Occupational Therapy Visit Type Type Treatment Note Visit Start Time 10:14 Visit Stop Time 11:13 Total Visit Minutes 59 Notes Pt's brother and sister in law here for education and discharge planning this session. Occupational Therapy Visit Comments Patient Comments I think I get to go home today. I am going to go to my girlfriend's house for a while . Patient/Caregiver Goals to return to independent living in his own home OT Pain Assessment Pain When Pain Assessed After Treatment Pain Present Pain Present Denied Pain M5 OT- IP IADL's Start: 09/25/18 15:53 Freq: Status: Active Protocol: Document 10/04/18 11:13 JANUARY (Rec: 10/04/18 17:07 [facility] [id number]) OT-Instrumental Activities of Daily Living Deficits IADL Deficits Identified Deficits Home Safety Awareness Awareness of Need for Assistance at Home Good Awareness Ability to Problem Solve Emergency Able to Problem Solve Situations Medication Management Medication Management Caregiver Provides Supervision Medication Management Comments Pt plans to get weekly pillbox to set up new medications as he was not on any prescription meds prior to admit. Recommend supervision with medication management initially . Brother verbalizes understanding. Money Management Money Management Caregiver Provides Supervision Money Management Comments Recommend HH OT further assess pt's abilities in this area with supervision initially. Meal Preparation Meal Preparation Caregiver Provides Supervision Caregiver Provides Assist Meal Preparation Comments Girlfriend to assist and HH OT to work on increasing independence in this area Barrel Finisher Barrel Finisher Caregiver Provides Assist Driving Driving Caregiver Provides Assist Concerns Identified Regarding Safety Driving Comments Pt agreed not to drive at this time. Provided written information re: 3 driving rehab programs that could provide on road driving assessment. Recommend pt have on road assessment and MD clearance prior to resuming any driving due to L visual spatial neglect and decreased speed of processing on Trailmaking B test. See further details below. M6 OT- IP Functional Cognition Start: 09/25/18 15:53 Freq: Status: Active Protocol: Document 10/04/18 11:13 JANUARY (Rec: 10/04/18 17:07 PJ [id number]) Cognitive Factors Limiting Selfcare Function Cognitive Ability Level of Alertness Alert Patient Orientation Name Age Birthday Month Date Year Day of Week Place Situation Attention Span Ability Capable of Focused Attention Capable of Sustained Attention Ability to Follow Commands Able to Follow One Step Commands Able to Follow Multi-Step Commands Memory Description No Deficits Noted Safety Awareness Underestimates Need for Assistance Problem Solving Ability Needs Assist to Identify Solutions Cognitive Comments Cognitive Assessment Comments Administered Trailmaking A/B test with results as follows: Trails A: 38 sec (<26 sec is Excellent, 27-39 sec is Normal but not perfect) Trails B: 86 sec (0-65 is Excellent, 66-85 is normal but not perfect, 86-120 is mild to moderate impairment) Pt appears to have significantly slowed speed of processing on Trails B test based on above scoring. Of note is his score is less than 180 sec which is a positive sign. Per AMA guidelines, persons scoring >180 sec have a higher risk of auto accident in the upcoming year. Pt reports he feels he is not yet back to baseline for reasoning skills. Recommend pt not drive until he successfully completes an on road driving assessment . Pt/family verbalize understanding. OT- Vision and Hearing OT- Vision Assessment Visual Spacial Neglect Left Vision Assessment Comments No L neglect noted during paper and pencil tasks this session. Pt demonstrating much improved awareness of LUE during mobility. M7 OT- IP Mobility and Balance Start: 09/25/18 15:53 Freq: Status: Active Protocol: Document 10/04/18 11:13 PJKsenia (Rec: 10/04/18 17:07 [facility] [id number]) OT-Transfer Assessment Sit to and From Stand Sit to and from Stand Independent Transfers Transfer Ability Independent Technique Transfer Destination Chair Transfer Technique Stand Step Pivot Devices Transfer Assistive Devices None M9 OT- IP Assessment and Plan Start: 09/25/18 15:53 Freq: Status: Active Protocol: Document 10/04/18 11:13 PJKsenia (Rec: 10/04/18 17:07 [facility] [id number]) OT Summary Assessment and Plan Potential Rehabilitation Potential Excellent Summary Progress Towards Goals Safe For Discharge Goals Met Assessment Summary Pt has made excellent daily progress in cognition, LUE/ hand function, self care, functional mobility throughout his hospital stay. Pt plans to discharge home to his girlfriend's house today where he will have assistance with showering and all IADLS. Provided education to pt/ family re: rehab process with HH services with goal of HH assisting pt with transition to his own home. Brother states he will assist with finishing some home remodeling projects that pt was doing when he was admitted. These need to be completed for pt safety before pt returns there . Pt would like to progress to out pt OT services when appropriate and eventually will pursue on road driving assessment for return to driving. Pt given extensive LUE home exercise program yesterday and is ready for d/c from OT standpoint. Frequency of Treatment Frequency Of Treatment Discharge Discharge Recommendations OT Discharge Recommendations Home with Assistance Home Health Home Equipment Needs brother has obtained shower chair for pt
--- NOTE | 2018-10-04 11:30 | PT.IPTN ---
Current Diagnoses Cerebral infarction, unspecified (09/24/18) Physical Therapy Treatment Note M2 PT-IP Current Condition Start: 09/24/18 15:09 Freq: NEEDED Status: Active Protocol: Document 09/25/18 09:47 RS (Rec: 09/25/18 09:53 RS [email or web address]) Physical Therapy Current Condition Current Condition Evaluation Date 09/25/18 Treatment Diagnosis R pontine ischemic infarct - impaired mobility Onset Date 09/24/18 Precautions Other Precautions high fall risk M3 PT-IP Subjective Start: 09/24/18 15:09 Freq: NEEDED Status: Active Protocol: Document 10/04/18 11:30 GGD (Rec: 10/04/18 12:04 GGD [email or web address]) Subjective Physical Therapy Visit Type Type Treatment Note Visit Start Time 11:00 Visit Stop Time 11:30 Total Visit Minutes 30 Number of CORPORATE AFFAIRS MANAGER Visits 5 Physical Therapy Visit Comments Patient Comments Pt is ready to go home. M4 PT-IP Mobility and Gait Start: 09/24/18 15:09 Freq: NEEDED Status: Active Protocol: Document 10/04/18 11:30 GGD (Rec: 10/04/18 12:04 GGD [email or web address]) PT-Transfer Assessment Sit to and From Stand Sit to and from Stand Independent Equipment Transfer Assistive Device Gait Belt Straight Cane Transfers Transfer Destination Chair Transfer Ability Level of Assist Standby Assistance Gait Assessment Gait Gait Assistance Required: Contact Guard Assist Distance (Feet) 300 Assistive Devices Assistive Device Gait Belt Gait Deviations General Gait Pattern Ataxic Decreased Stride Length Decreased Feet Clearance Factors Limiting Gait Function Factors Limiting Gait Function Decreased Sensation Decreased Strength Incoordination Poor Balance Stair Climbing Assessment Evaluation Level of Assist On Stairs Contact Guard Assistance Devices Stair Climbing Assistive Devices Front Wheel Walker Technique/Endurance Stair Climbing Direction Ascend and Descend Stair Climbing Technique Step to Step Number of Steps Climbed 1 Query Text: Stair Climbing Set # Repetitions (reps) 4 Comments Stair Climbing Comments Pt need min cues for sequencing. M5 PT-IP Objective Assessments Start: 09/24/18 15:09 Freq: NEEDED Status: Active Protocol: Document 09/25/18 09:47 RS (Rec: 09/25/18 10:34 RS [email or web address]) Orientation Orientation/Cognition Level of Alertness Alert Orientation Name Age Birthday Month Date Year Day of Week Place Situation Language Function Ability Expressive Aphasia Word Finding Difficulties Safety Awareness Decreased Safety Awareness Gross Range of Motion Upper Extremity ROM Assessment Left Impaired Impairments PROM relatively intact but AROM limited due to weakness. Lower Extremity ROM Assessment Within Functional Limits Strength Upper Extremity Strength Assessment Left Impaired Lower Extremity Strength Assessment Left Impaired Hip 3+/5 Knee 3+/5 Ankle 3+/5 Coordination Assessment Gross Coordination Gross Coordination Impaired Assessment Finger to Nose Test Moderate Impairment Pronation/Supination Test Moderate Impairment Foot Tapping Test Moderate Impairment Heel on Johnson Test Moderate Impairment Coordination Comments Some of the slowness and test deficits are related to weakness, but definitely impaired coordination on all tests Sensation Assessment Sensation Light Touch Impaired Comments Sensation Comments Pt denies sensation deficits but only 50-75% for light touch on L side. Muscle Tone Muscle Tone WNL No Muscle Tone Location Left Upper Extremity Type of Tone Hypotonicity Severity of Tone Mild M6 PT-IP Treatment Start: 09/24/18 15:09 Freq: NEEDED Status: Active Protocol: Document 10/04/18 11:30 GGD (Rec: 10/04/18 12:04 GGD [email or web address]) Physical Therapy Treatment Other Treatments Other Treatment Performed Fall recovery with min cues from floor. M7 PT-IP Assessment and Plan Start: 09/24/18 15:09 Freq: NEEDED Status: Active Protocol: Document 10/04/18 11:30 GGD (Rec: 10/04/18 12:04 GGD [email or web address]) PT Summary Assessment and Plan Summary Assessment Summary Pt improving with mobility. He need min cues for stair mobility. He was safe with fall recovery training. He is safe for home D/C when medically stable. Frequency of Treatment Frequency Of Treatment Twice a Day Treatment Plan Physical Therapy Treatment Plan Bed Mobility Training Transfer Training Gait Training Therapeutic Exercise Balance Retraining Post Op Education Discharge Planning Hot or Cold Pack Neuromuscular Re-ed Coordination Retraining Manual Therapy Other Recommendations and Next Treatment monitor BP, balance, Focus coordination, pregait w.out AD and walking without AD, stairs, LE strengthening. Recommendations To Nursing Amount of Assist Needed 1 Person Assist Discharge Recommendations PT Discharge Recommendations Acute Rehab
--- NOTE | 2018-10-04 12:30 | CM.DPC ---
DCP Cont: Spoke to Ary at [facility]. Stated, they were not sure if patient could get physical therapy, for if they do therapy, they would use up outpatient benefit.. Discussed nursing visits, and she stated that they could see him. Let her know that patient has been here for a while, and all efforts have been made to either attempt higher level inpatient, versus skilled. Barrier is his insurance. Also, difficulty for patient to get out, for he should not be driving. She stated that nursing will go ahead and see him and assess, and if he is unable to get out for any outpatient therapy, they will do therapy as well, although it will use up some of his outpatient benefit. P: Patient is to be discharged today to [facility]. Hazel Preciado RN/Compliance Professional
== END 2018-10-04 12:40 | disposition home health service (06) | DRG 45 ==
LOC: ED 10:59 → AC 12:48
PROVIDERS: Internal Medicine; Admitting Provider Internal Medicine; Emergency Provider Emergency Medicine; Visit Provider Internal Medicine
DX: I63.29 Cerebral infarction due to unspecified occlusion or stenosis of other precerebral arteries (principal); G81.94 Hemiplegia, unspecified affecting left nondominant side; R47.01 Aphasia; R29.810 Facial weakness; I11.0 Hypertensive heart disease with heart failure; I50.20 Unspecified systolic (congestive) heart failure; R29.704 NIHSS score 4; E78.5 Hyperlipidemia, unspecified
CPT/HCPCS: 36415; 36591; 70450; 70496; 70498; 70553; 80048; 80053; 80061; 80305; 81003; 82550; 82962; 83036; 84484; 85025; 85610; 85730; 92507; 92522; 92526; 92610; 93005; 93010; 93306; 96360; 96361; 97110; 97112; 97116; 97127; 97162; 97165; 97530; 97535; 99285; 99291; A9579; J1644; Q9967

== ENCOUNTER → 2020-10-13 08:48 | Outpatient (CLI) | payer OTHER, MEDICAID, SELFPAY ==
[2018-09-24 11:28] VITALS: BMI 27.6
[2020-10-13 09:49] LABS: Alanine Aminotransferase 57 IU/L (<50); Albumin 4.6 g/dL (3.5-5.0); Albumin Globulin Ratio 1.7 (1.0-2.8); Alkaline Phosphatase 41 U/L (38-126); Aspartate Aminotransferase 38 IU/L (17-59); Bilirubin Total 0.7 mg/dL (0.2-1.3); Blood Urea Nitrogen 17 mg/dL (9-20); Calcium 9.6 mg/dL (8.4-10.2); Carbon Dioxide 28 mmol/L (22-32); Chloride 102 mmol/L (98-107); Cholesterol 124 mg/dL (140-199); Estimated Glomerular Filt Rate > 60.0 mL/min (>60); Globulin 2.7 g/dL (1.7-4.1); Glucose 99 mg/dL (80-110); HDL Cholesterol 32 mg/dL (40-60); HEMOLYSIS 30 (0-50); LDL Cholesterol Calculated 70 mg/dL (<100); Potassium 4.4 mmol/L (3.4-5.1); Sodium 138 mmol/L (137-145); Total Protein 7.3 g/dL (6.3-8.2); Triglycerides 111 mg/dL (35-150)
[2020-10-13 10:13] LABS: Prostate Specific Antigen Scrn 2.43 ng/mL (0.1-4.0)
== END ==
PROVIDERS: PCP Internal Medicine; Referring Provider Internal Medicine; Visit Provider Internal Medicine
DX: E78.2 Mixed hyperlipidemia (principal); I10 Essential (primary) hypertension; Z12.5 Encounter for screening for malignant neoplasm of prostate
CPT/HCPCS: 36415; 80053; 80061; G0103

== ENCOUNTER → 2021-11-04 10:12 | Outpatient (CLI) | payer MEDICARE, OTHER, MEDICAID, SELFPAY ==
[2018-09-24 11:28] VITALS: BMI 27.6
[2021-11-04 10:50] LABS: Alanine Aminotransferase 66 IU/L (<50); Albumin 4.6 g/dL (3.5-5.0); Albumin Globulin Ratio 1.6 (1.0-2.8); Alkaline Phosphatase 45 U/L (38-126); Aspartate Aminotransferase 50 IU/L (17-59); BUN Creatinine Ratio 21.3 (6-22); Bilirubin Total 1.5 mg/dL (0.2-1.3); Blood Urea Nitrogen 17 mg/dL (9-20); Calcium 8.9 mg/dL (8.4-10.2); Carbon Dioxide 21 mmol/L (22-32); Chloride 106 mmol/L (98-107); Cholesterol 117 mg/dL (140-199); Estimated Glomerular Filt Rate > 60.0 mL/min (>60); Globulin 2.8 g/dL (1.7-4.1); Glucose 91 mg/dL (80-110); HDL Cholesterol 32 mg/dL (40-60); LDL Cholesterol Calculated 59 mg/dL (<100); Potassium 5.2 mmol/L (3.4-5.1); Sodium 138 mmol/L (137-145); Total Protein 7.4 g/dL (6.3-8.2); Triglycerides 129 mg/dL (35-150)
[2021-11-04 10:54] LABS: HEMOLYSIS 181 (0-50)
== END ==
PROVIDERS: PCP Internal Medicine; Referring Provider Internal Medicine; Visit Provider Internal Medicine
DX: I10 Essential (primary) hypertension (principal); E78.2 Mixed hyperlipidemia; I42.9 Cardiomyopathy, unspecified
CPT/HCPCS: 36415; 80053; 80061

== ENCOUNTER → 2021-11-05 09:34 | Outpatient (CLI) | payer MEDICARE, OTHER, MEDICAID, SELFPAY ==
[2018-09-24 11:28] VITALS: BMI 27.6
== END ==
PROVIDERS: PCP Internal Medicine; Visit Provider Internal Medicine
DX: Z12.5 Encounter for screening for malignant neoplasm of prostate (principal)
CPT/HCPCS: G0103

== ENCOUNTER → 2022-07-20 11:11 | Outpatient (CLI) | payer MEDICARE, OTHER, MEDICAID, SELFPAY ==
[2018-09-24 11:28] VITALS: BMI 27.6
[2022-07-20 13:24] LABS: COVID19 -Nasal RAPID Negative (Negative)
== END ==
PROVIDERS: PCP Internal Medicine; Visit Provider Surgery
DX: Z01.812 Encounter for preprocedural laboratory examination (principal); Z20.822 Contact with and (suspected) exposure to COVID-19
CPT/HCPCS: 87635; C9803

== ENCOUNTER 2022-07-21 09:18 | Day surgery (SDC) | payer MEDICARE, OTHER, MEDICAID, SELFPAY ==
[2018-09-24 11:28] VITALS: BMI 27.6
[2022-07-21 10:38] VITALS: BP 145/96; PULSE 65; RESP 16; TEMP 36.3; O2SAT 98; BMI 28.5
[2022-07-21] MEDS: LACTATED RINGERS 1,000 ML 42 ML IV (10:50)
--- NOTE | 2022-07-21 11:10 | PM.HP.1 ---
History of Present Illness History of Present Illness Date Patient Seen: 07/21/22 Time Patient Seen: 11:10 Chief complaint: SDC Narrative: Darinel is a 66 year old man who is here today for a colonoscopy. He had one colonoscopy 15 years ago and he believes polyps were taken. No family history of colon cancer. Patient History Medical History (Updated 07/21/22 @ 11:12 by Anthony Zimmer MD) Cardiomyopathy Erectile dysfunction Essential hypertension H/O: stroke (~2018) Mixed hyperlipidemia Obstructive sleep apnea syndrome in adult Tinnitus (~2006) Surgical History (Updated 11/04/20 @ 20:34 by Yocasta Blackburn) Anesthesia H/O cataract removal with insertion of prosthetic lens H/O right inguinal hernia repair (~2004) Family & Social History Family History (Updated 11/04/20 @ 20:36 by Yocasta Blackburn) Mother Cerebral hemorrhage Father Diabetes mellitus Hypertension Renal failure Brother Diabetes mellitus Myocardial infarct Grandfather Alcoholism Grandmother Hypertension Social History: household members none Tobacco & Substance use: Smoking Status Never smoker alcohol intake current alcohol intake frequency 0-2 drinks per day Substance Use Type marijuana Meds Home Medications and Allergies Home Medications Medication Instructions Recorded Confirmed Type multivitamin (Multiple Vitamins 1 tab PO DAILY ##0 03/02/17 07/21/22 History tablet) aspirin 81 mg tablet,delayed 81 mg PO DAILY #30 tabs 10/04/18 07/21/22 Rx release metoprolol succinate 25 mg 25 mg PO DAILY #90 tabs 09/22/21 07/21/22 Rx tablet,extended release 24 hr atorvastatin 20 mg tablet (Lipitor) 20 mg PO QPM #90 tabs 12/06/21 07/21/22 Rx lisinopril 20 mg tablet 10 mg PO BID #90 tabs 03/14/22 07/21/22 Rx sildenafil 100 mg tablet 50 - 100 mg PO DAILY PRN sexual 05/09/22 07/21/22 Rx activity #15 tabs Allergies Allergy/AdvReac Type Severity Reaction Status Date / Time No Known Drug Allergies Allergy Verified 07/21/22 10:22 Exam Vital Signs (past 8 hours): - 07/21/22 10:38 Temperature 97.3 F L Pulse Rate 65 Respiratory Rate 16 Blood Pressure 145/96 H Pulse Oximetry 98 Oxygen Delivery Method Room Air Oxygen Delivery Method Room Air Narrative Exam Narrative: Abdomen soft Const General: No acute distress Assessment & Plan Assessment and plan (1) History of colon polyps: Status: Acute Plan We discussed the risk, benefits and rationale of colonoscopy for colon cancer and he would like to proceed. Time Spent With Patient Critical Care time: I spent a total of [] minutes of critical care time on this patient's care today; this time is exclusive of procedural time.
--- NOTE | 2022-07-21 12:03 | SUR.PREOP ---
Delay to patient explained; apologized. Patient verbalizes understanding.
[2022-07-21 12:20] VITALS: BP 131/88; PULSE 76; RESP 12; TEMP 36.1; O2SAT 95
--- NOTE | 2022-07-21 12:20 | PM.OP.COLON ---
Operative Date/Time/Diagnoses Date of procedure: 07/21/22 Time of procedure: 12:20 Pre-op diagnosis: Colon cancer screening Post-op diagnosis: same Procedure & Clinicians Study performed: Colonoscopy Surgeon: Anthony Zimmer Procedure Notes Procedure in detail: Surgeon: Anthony Zimmer MD Anesthesia: Payton Suárez CRNA Procedure: The patient was brought to the endoscopy suite, placed in left lateral decubitus position. The patient was connected to monitoring devices. A time-out was performed. Sedation was administered. Once the patient was adequately sedated, a digital rectal exam was performed and was normal. The scope was then inserted and advanced to the cecum where the appendiceal orifice was identified and photographed. The scope was then slowly withdrawn over greater than 6 minutes. The mucosa was thoroughly inspected. No abnormalities were noted. The scope was retroflexed in the rectum. No abnormalities were noted. The scope was straightened and removed. The patient was awakened and brought to recovery. Scope withdrawal time: 12 minutes Sedation time: 18 minutes EBL: 0 Findings: Normal colon Post-procedure Recommendations: Colonoscopy in 10 years Disposition: PACU
[2022-07-21 12:31] VITALS: BP 139/97; PULSE 75; RESP 14; O2SAT 98
[2022-07-21 12:35] VITALS: BP 154/91; PULSE 65; RESP 14; O2SAT 98
[2022-07-21 12:58] VITALS: BP 154/97; PULSE 67; RESP 18; TEMP 36.6; O2SAT 98
== END 2022-07-21 12:57 | disposition home or self-care (01) ==
PROVIDERS: PCP Internal Medicine; Referring Provider Surgery; Visit Provider Surgery
PROC: 0DJD8ZZ Inspection of Lower Intestinal Tract, Via Natural or Artificial Opening Endoscopic (ICD-10-PCS; CPT 45378; principal; 2022-07-21 10:45)
DX: Z12.11 Encounter for screening for malignant neoplasm of colon (principal)
CPT/HCPCS: G0121; J2704

== ENCOUNTER → 2022-11-17 08:21 | Outpatient (CLI) | payer MEDICARE, OTHER, MEDICAID, SELFPAY ==
[2018-09-24 11:28] VITALS: BMI 27.6
[2022-11-17 10:28] LABS: Alanine Aminotransferase 67 IU/L (<50); Albumin 4.5 g/dL (3.5-5.0); Alkaline Phosphatase 47 U/L (38-126); Aspartate Aminotransferase 37 IU/L (17-59); BUN Creatinine Ratio 18.2 (6-22); Bilirubin Total 0.8 mg/dL (0.2-1.3); Blood Urea Nitrogen 14 mg/dL (9-20); Calcium 9.7 mg/dL (8.4-10.2); Carbon Dioxide 30 mmol/L (22-32); Chloride 101 mmol/L (98-107); Cholesterol 125 mg/dL (140-199); Estimated Glomerular Filt Rate > 60 mL/min (>60); Globulin 2.3 g/dL (1.7-4.1); Glucose 89 mg/dL (80-110); HDL Cholesterol 35 mg/dL (40-60); HEMOLYSIS < 15 (0-50); LDL Cholesterol Calculated 71 mg/dL (<100); Potassium 4.8 mmol/L (3.4-5.1); Sodium 138 mmol/L (137-145); Total Protein 6.8 g/dL (6.3-8.2); Triglycerides 93 mg/dL (35-150)
== END ==
PROVIDERS: PCP Internal Medicine; Referring Provider Internal Medicine; Visit Provider Internal Medicine
DX: E78.2 Mixed hyperlipidemia (principal); I10 Essential (primary) hypertension; I42.9 Cardiomyopathy, unspecified
CPT/HCPCS: 36415; 80053; 80061

== ENCOUNTER 2022-12-28 13:08 | Emergency (ER) | payer MEDICARE, OTHER, MEDICAID, SELFPAY ==
[2018-09-24 11:28] VITALS: BMI 27.6
[2022-12-28 13:11] VITALS: BP 135/83; PULSE 78; RESP 18; TEMP 35.9; O2SAT 97; BMI 29.4
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
[2022-12-28] MEDS: TET,DIPH,PERTUSS(ACELL),VAC/PF 0.5 ML SYRINGE IM (13:25)
[2022-12-28] MEDS: HYDROCODONE/ACET 5/325 TABLET 1 TAB PO (13:25)
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
[2022-12-28] MEDS: BACITRACIN OINT 0.9 GM PCKT 1 APPLIC TOP (13:26)
[2022-12-28] MEDS: LIDOCAINE/PRILOCAINE 30 GM 1 APPLIC TOP (13:39)
[2022-12-28 14:47] VITALS: BP 127/79; PULSE 61; O2SAT 97
== END 2022-12-28 14:47 | disposition home or self-care (01) ==
PROVIDERS: Emergency Provider Nurse Practitioner Critical Care Medicine; PCP Internal Medicine
DX: S00.81XA Abrasion of other part of head, initial encounter (principal); W05.1XXA Fall from non-moving nonmotorized scooter, initial encounter; Z79.01 Long term (current) use of anticoagulants; Z79.82 Long term (current) use of aspirin; Z23 Encounter for immunization
CPT/HCPCS: 70450; 72125; 90471; 99284; 90715

== ENCOUNTER → 2024-01-08 08:56 | Outpatient (CLI) | payer MEDICARE, SELFPAY ==
[2018-09-24 11:28] VITALS: BMI 27.6
[2024-01-08 10:31] LABS: Add Manual Diff / Slide Review NO; Basophils Absolute Auto 100 /uL (0-100); Basophils Percent Auto 0.9 % (0-2); Eosinophils Absolute Auto 100 /uL (0-450); Eosinophils Percent Auto 2.5 % (2-4); Hematocrit 44.4 % (41-53); Hemoglobin 15.3 g/dL (13.5-17.5); Lymphocytes Absolute Auto 1900 /uL (1100-4500); Lymphocytes Percent Auto 32.8 % (25-40); Mean Corpuscular HGB Conc 34.4 % (30-36); Mean Corpuscular Volume 93.1 fL (80-100); Monocytes Absolute Auto 600 /uL (0-900); Monocytes Percent Auto 10.5 % (3-14); Neutrophils Absolute Auto 3000 /uL (1500-7000); Neutrophils Percent Auto 53.3 % (50-75); Platelet Count 223 X10^3/uL (150-400); Red Blood Cell Count 4.77 X10^6/uL (4.5-5.9); Red Cell Distribution Width 12.8 % (11.6-14.8); White Blood Cell Count 5.7 X10^3/uL (4.5-11.0)
[2024-01-08 11:00] LABS: Alanine Aminotransferase 43 IU/L (<50); Albumin 4.2 g/dL (3.5-5.0); Alkaline Phosphatase 56 U/L (38-126); Aspartate Aminotransferase 34 IU/L (17-59); BUN Creatinine Ratio 20.8 (6-22); Bilirubin Total 0.8 mg/dL (0.2-1.3); Blood Urea Nitrogen 15 mg/dL (9-20); Calcium 9.1 mg/dL (8.4-10.2); Carbon Dioxide 25 mmol/L (22-32); Chloride 107 mmol/L (98-107); Cholesterol 111 mg/dL (140-199); Estimated Glomerular Filt Rate > 60 mL/min (>60); Globulin 2.1 g/dL (1.7-4.1); Glucose 95 mg/dL (80-110); HDL Cholesterol 35 mg/dL (40-60); HEMOLYSIS < 15 (0-50); LDL Cholesterol Calculated 59 mg/dL (<100); Potassium 4.8 mmol/L (3.4-5.1); Sodium 138 mmol/L (137-145); Total Protein 6.3 g/dL (6.3-8.2); Triglycerides 86 mg/dL (35-150)
[2024-01-08 11:25] LABS: Prostate Specific Antigen Scrn 4.31 ng/mL (0.1-4.0)
== END ==
PROVIDERS: PCP Internal Medicine; Referring Provider Internal Medicine; Visit Provider Internal Medicine
DX: Z12.5 Encounter for screening for malignant neoplasm of prostate (principal); R79.89 Other specified abnormal findings of blood chemistry; I10 Essential (primary) hypertension; E78.2 Mixed hyperlipidemia
CPT/HCPCS: 36415; 80053; 80061; 85025; G0103

== ENCOUNTER → 2024-01-10 10:24 | Outpatient (CLI) | payer MEDICARE, SELFPAY ==
[2018-09-24 11:28] VITALS: BMI 27.6
[2024-01-12 07:36] LABS: PSA Free % 12.1 % (.); PSA, Total 4.7 ng/mL (0.0-4.0)
== END ==
PROVIDERS: PCP Internal Medicine; Visit Provider Internal Medicine
DX: R97.20 Elevated prostate specific antigen [PSA] (principal)
CPT/HCPCS: 84153; 84154

== ENCOUNTER → 2024-05-11 07:33 | Outpatient (CLI) | payer MEDICARE, SELFPAY ==
[2018-09-24 11:28] VITALS: BMI 27.6
[2024-05-11 10:30] LABS: Prostate Specific Antigen 4.23 ng/mL (0.10-4.00)
== END ==
PROVIDERS: PCP Internal Medicine; Referring Provider Internal Medicine; Visit Provider Internal Medicine
DX: R97.20 Elevated prostate specific antigen [PSA] (principal)
CPT/HCPCS: 36415; 84153

== ENCOUNTER → 2024-09-05 08:04 | Outpatient (CLI) | payer MEDICARE, SELFPAY ==
[2018-09-24 11:28] VITALS: BMI 27.6
[2024-09-05 09:05] LABS: Alanine Aminotransferase 60 IU/L (<50); Albumin 4.6 g/dL (3.5-5.0); Alkaline Phosphatase 47 U/L (38-126); Aspartate Aminotransferase 36 IU/L (17-59); BUN Creatinine Ratio 19.5 (6-22); Bilirubin Total 0.9 mg/dL (0.2-1.3); Blood Urea Nitrogen 17 mg/dL (9-20); Calcium 9.7 mg/dL (8.4-10.2); Carbon Dioxide 25 mmol/L (22-32); Chloride 104 mmol/L (98-107); Cholesterol 132 mg/dL (140-199); Estimated Glomerular Filt Rate > 60 mL/min (>60); Globulin 2.3 g/dL (1.7-4.1); Glucose 104 mg/dL (80-110); HDL Cholesterol 35 mg/dL (40-60); HEMOLYSIS < 15 (0-50); LDL Cholesterol Calculated 74 mg/dL (<100); Potassium 4.6 mmol/L (3.4-5.1); Sodium 138 mmol/L (137-145); Total Protein 6.9 g/dL (6.3-8.2); Triglycerides 115 mg/dL (35-150)
[2024-09-05 09:33] LABS: Prostate Specific Antigen 4.83 ng/mL (0.10-4.00)
== END ==
LOC: LAB 08:04
PROVIDERS: PCP Internal Medicine; Referring Provider Internal Medicine; Visit Provider Internal Medicine
DX: R79.89 Other specified abnormal findings of blood chemistry (principal); R97.20 Elevated prostate specific antigen [PSA]; I10 Essential (primary) hypertension; E78.2 Mixed hyperlipidemia
CPT/HCPCS: 36415; 80053; 80061; 84153